=== PATIENT | female | born 1940 | race Caucasian/White ===

== ENCOUNTER → 2016-10-20 | Outpatient (CLI) | payer BC ==
[~2016-10-20] MED LIST: ASPEC81 PO; COEN60CA2 PO; FENO145T26 PO; PANT1TAB48 PO; PARO20TA4 PO; PENC1CRE33 TOP; TOLT1CAP3 PO
[2016-10-20 12:14] LABS: HEMATOCRIT 44.3 % (37-47); MEAN CELL VOLUME 93.3 fL (80-100); MEAN CORPUSCULAR HEMOGLOBIN 30.7 pg (25-34); MEAN PLATELET VOLUME 11.1 fL (7.4-10.4); PLATELET COUNT 245 K/uL (130-400); RED BLOOD COUNT 4.75 M/uL (4.2-5.4); WHITE BLOOD COUNT 5.22 K/uL (4.8-10.8)
[2016-10-20 12:36] LABS: ALT/SGPT 23 U/L (12-78); BLOOD UREA NITROGEN 17 mg/dl (7-18); BUN/CREATININE RATIO 19.3 (10-20); CARBON DIOXIDE 30 mmol/L (21-32); CHLORIDE 106 mmol/L (98-107); CHOLESTEROL 179 mg/dl (0-200); CREATININE 0.89 mg/dl (0.60-1.20); GLUCOSE 88 mg/dl (70-99); POTASSIUM 4.2 mmol/L (3.5-5.1); SODIUM 143 mmol/L (136-145); TRIGLYCERIDES 51 mg/dl (0-150); VERY LOW DENSITY LIPOPROT CALC 10 mg/dl
[2016-10-20 12:37] LABS: CALCIUM 8.9 mg/dl (8.5-10.1)
[2016-10-20 12:39] LABS: ALB/GLOB RATIO 1.3 (0.9-2); ALKALINE PHOSPHATASE 51 U/L (45-117); AST/SGOT 19 U/L (15-37); CHOLESTEROL/HDL RATIO 2.5; HDL CHOLESTEROL 73 mg/dl; LDL CHOLESTEROL CALCULATED 96 mg/dl
== END | disposition home or self-care (01) ==
LOC: C.LABBFT 09:14
PROVIDERS: ATTEND Internal Medicine
DX: E78.00 Pure hypercholesterolemia, unspecified (principal)

== ENCOUNTER → 2017-05-23 | Outpatient (CLI) | payer BC ==
[~2017-05-23] MED LIST changes: +PANT1TAB3 PO; -PANT1TAB48 PO
[2017-05-23 12:29] LABS: HEMATOCRIT 43.5 % (37-47); HEMOGLOBIN 14.6 g/dL (12.0-16.0); MEAN CELL VOLUME 93.1 fL (80-100); MEAN CORPUSCULAR HEMOGLOBIN 31.3 pg (25-34); MEAN CORPUSCULAR HGB CONC 33.6 g/dl (32-36); MEAN PLATELET VOLUME 11.4 fL (7.4-10.4); PLATELET COUNT 246 K/uL (130-400); RED CELL DISTRIBUTION WIDTH SD 43.8 fL (36.4-46.3)
[2017-05-23 13:12] LABS: ALBUMIN 3.9 gm/dl (3.4-5.0); ALT/SGPT 25 U/L (12-78); AST/SGOT 17 U/L (15-37); BLOOD UREA NITROGEN 22 mg/dl (7-18); CALCIUM 8.9 mg/dl (8.5-10.1); CARBON DIOXIDE 28 mmol/L (21-32); CHOLESTEROL 175 mg/dl (0-200); CREATININE 0.84 mg/dl (0.60-1.20); GLUCOSE 79 mg/dl (70-99); POTASSIUM 4.2 mmol/L (3.5-5.1); SODIUM 140 mmol/L (136-145)
[2017-05-23 13:23] LABS: ALKALINE PHOSPHATASE 45 U/L (45-117); LDL CHOLESTEROL CALCULATED 95 mg/dl
== END | disposition home or self-care (01) ==
LOC: C.LABBFT 10:50
PROVIDERS: ATTEND Internal Medicine
DX: E78.00 Pure hypercholesterolemia, unspecified (principal)

== ENCOUNTER 2023-05-29 18:55 | Inpatient (IN) ==
--- NOTE | 2023-05-29 19:31 | XRay Report ---
SINGLE VIEW CHEST CLINICAL HISTORY: Flulike symptoms FINDINGS: 2 AP, portable, upright chest radiographs are compared to study dated 01/29/2023. The examin ation is degraded by portable technique and patient rotation. The heart is mildly enlarged noting at herosclerotic calcification of the thoracic aorta. The pulmonary vasculature is noncongested. Chronic interstitial thickening is similar to previous. There is mild left basilar atelectasis. The lungs an d pleural spaces are otherwise clear. No pneumothorax is seen. The skeletal structures are osteopenic . The bony thorax is grossly intact. IMPRESSION: No active disease in the chest. ACT 112: Negative or not required by law. Electronically signed by: Zhen Wyatt M.D. 05/29/2023 7:29 PM
[2023-05-29 20:32] LABS: Basophils # (auto) 0.03 K/uL (0.00-0.20); Basophils % (auto) 0.3 %; Eosinophils # (auto) 0.02 K/uL (0.00-0.50); Eosinophils % (auto) 0.2 %; Hematocrit (blood only) 42.3 % (37.0-47.0); Hemoglobin 13.9 g/dl (12.0-16.0); Immature Granulocytes # (auto) 0.04 K/uL (0.01-0.20); Immature Granulocytes % (auto) 0.5 %; Lymphocytes # (auto) 0.81 K/uL (1.20-3.40); Lymphocytes % (auto) 9.3 %; Mean Corpuscular Hemoglobin 30.1 pg (25.0-34.0); Mean Corpuscular Hgb Conc 32.9 g/dL (32.0-36.0); Mean Corpuscular Volume 91.6 fL (80.0-100.0); Mean Platelet Volume 10.8 fL (9.4-12.4); Monocytes # (auto) 0.76 K/uL (0.11-0.59); Monocytes % (auto) 8.7 %; Neutrophils # (auto) 7.06 K/uL (1.40-6.50); Platelet Count 235 K/uL (130-400); RDW Coefficient of Variation 13.2 % (11.5-14.5); RDW Standard Deviation 44.2 fL (36.4-46.3); Red Blood Count 4.62 M/uL (4.20-5.40); White Blood Count 8.72 K/ul (4.8-10.8)
[2023-05-29 20:50] LABS: Alanine Aminotransferase 7 U/L (7-52); Albumin Globulin Ratio 1.5 (0.9-2); Albumin Level 4.2 gm/dl (3.4-5.0); Alkaline Phosphatase 45 U/L (34-104); Anion Gap 7 (3-11); Aspartate Aminotransferase 33 U/L (13-39); BUN Creatinine Ratio 28.2 (10-20); Bilirubin,Total 0.5 mg/dl (0.2-1.0); Blood Urea Nitrogen 22 mg/dl (6-23); Calcium 9.5 mg/dl (8.6-10.3); Carbon Dioxide 26 mmol/L (21-32); Chloride 104 mmol/L (98-107); Est GFR (African American) 83.2 ml/min; Est GFR (Non-African American) 71.8 ml/min; Globulin 2.8 gm/dl (2.5-4.0); Glucose 194 mg/dl (70-99(Fasting)); Potassium 3.6 mmol/L (3.5-5.1); Sodium 137 mmol/L (136-145)
[2023-05-29 21:18] LABS: Adenovirus PCR Not Detected (NotDetected); Bordetella parapertussis PCR Not Detected (NotDetected); Bordetella pertussis PCR Not Detected (NotDetected); Chlamydia pneumoniae PCR Not Detected (NotDetected); Coronavirus 229E PCR Not Detected (NotDetected); Coronavirus HKU1 PCR Not Detected (NotDetected); Coronavirus NL63 PCR Not Detected (NotDetected); Coronavirus OC43PCR Not Detected (NotDetected); Human Metapneumovirus PCR Not Detected (NotDetected); Influenza A PCR Not Detected (NotDetected); Influenza B PCR Not Detected (NotDetected); Mycoplasma pneumoniae PCR Not Detected (NotDetected); Parainfluenza Virus 1 PCR Not Detected (NotDetected); Parainfluenza Virus 2 PCR Not Detected (NotDetected); Parainfluenza Virus 3 PCR Not Detected (NotDetected); Parainfluenza Virus 4 PCR Not Detected (NotDetected); Respiratory Syncytial VirusPCR Not Detected (NotDetected); Rhinovirus/Enterovirus PCR Not Detected (NotDetected)
[2023-05-29 21:26] LABS: Coronavirus CoV-2 (COVID19)PCR DETECTED (NotDetected)
[2023-05-29] MEDS ORDERED: ACETAMINOPHEN 1,000 MG/100 ML VIAL IV STA (21:52)
[2023-05-29] MEDS ORDERED: SODIUM CHLORIDE 0.9% 1,000 ML IV ONE (21:52)
--- NOTE | 2023-05-29 22:10 | Emergency Department Note ---
Impression & Plan Weakness, Fall, Flu-like symptoms, COVID-19 ED Provider Note NAME: VASU TORO AGE: 82 SEX: F : 1940 ARRIVES VIA: Walk-In INFORMANT: [Patient][daughter] ED PROVIDER(S): [Zhen Laura MD] CHIEF COMPLAINT: Flulike symptoms, weak HISTORY OF PRESENT ILLNESS: The patient is an 82-year-old female who resides at an assisted living center. She has felt poorly for about 1 weeks timeframe. She had a sore throat, fever, cough and some nausea. No vomiting. She has been quite weak. She cannot walk as per the daughter and has fallen a few times although, she has not suffered any injuries. Patient has a poor appetite, she feels she may be dehydrated. The patient's daughter was concerned for UTI, the patient has not yet been able to provide a urine sample. PMHx/PSHx/Social Hx: See Below PHYSICAL EXAM: GENERAL: Patient is in no acute distress. HEENT: No acute trauma, normocephalic atraumatic, mucous membranes moist, no nasal congestion. NECK: No stridor, no adenopathy, no meningismus, trachea is midline. LUNGS: Clear to auscultation bilaterally, no wheeze, no rhonchi, breath sounds equal. HEART: Without murmurs gallops or rubs, regular rate and rhythm. ABDOMEN: Soft, nontender, no peritonitis. EXTREMITIES: No cyanosis, full range of motion of all the joints without pain or difficulty. NEUROLOGIC: Oriented x 3, no acute motor or sensory deficits, no focal weakness. SKIN: No jaundice, no diaphoresis. DIFFERENTIAL DIAGNOSIS: Viral illness, COVID-19, influenza, pneumonia, UTI, electrolyte imbalance, anemia, dehydration, among others. EMERGENCY DEPARTMENT PROCEDURES: MEDICAL DECISION MAKING: There is no leukocytosis or concerning anemia. There is a normal platelet count. No renal failure or significant electrolyte abnormality. No concerning liver enzyme elevation. Respiratory bio fire was positive for COVID-19. Chest film does not show pneumonia, CHF or pneumothorax. Strep testing returned negative. On exam, the patient was not hypoxic. Her lungs were clear. An ECG was done, there was a normal sinus rhythm, no obvious ST elevation. The patient was given IV Tylenol. She was given IV saline, 1 L. Patient has COVID-19. She is weak, she cannot walk, she is falling. She is not safe for discharge. I do think COVID-19 has caused her symptoms, weakness is quite common in the elderly with the COVID-19 diagnosis. I spoke with the patient and case management, the on-call hospitalist was consulted. Prior/Outside records/notes reviewed: Primary care note from 04/21/2023 discussing her ongoing medical issues including Parkinson's and CVA. ECG per my interpretation: Indication was weakness. The ECG shows a normal sinus rhythm with a rate of 88. There is significant baseline artifact. There is no ST elevation, no PVCs but there is some subtle ST depression seen in the lateral leads. QTc is 435. Continuous Cardiac Monitoring per my interpretation: An order was placed for continuous cardiac monitoring. The monitor shows a rate of 89 with normal sinus rhythm. Imaging/x-ray results per my interpretation: Chest x-ray does not show mediastinal widening, pneumonia or pneumothorax. Chronic Medical/Social conditions affecting care: Advanced age. Care/Management discussed with: Case management, the on-call hospitalist. Level of care consideration(s): After review of the information above and other included data: --I believe the patient requires escalation of care to admission DISPOSITION: Admission Past Med/Surg History Medical History Anxiety H/O esophageal reflux Hyperactivity of bladder Lice infested hair Menopause Sciatica of left side Seborrheic dermatitis Tracheoesophageal fistula, esophageal atresia and stenosis, congenital Depression Surgical History History of esophagogastroduodenoscopy (EGD) Family History Mother Myocardial infarction Father Myocardial infarction Sister Myocardial infarction Brother No problems noted. Son Prostate cancer Other Cancer Coronary heart disease Denies family history of Ovarian cancer Breast cancer Colorectal cancer Social History Smoking Status: Former smoker Tobacco Type: Cigarettes Age Started Using Tobacco: 22; Age Quit Using Tobacco: 42; packs per day: 1; Cigarettes Per Day: 20; Second Hand Exposure: No; Do You Dip or Chew Tobacco: No; Hx Alcohol Use: No Hx Substance Use: No Preferred Language: Spanish Communication Ability: Effective Visual Impairment: No Limitations Hearing Ability: Normal Employment Law Specialist Required: No Beliefs That Will Affect Care: None marital status: / Current Living Situation: Personal Care Facility Current Living Situation Comment: lives in independent living at [facility] current occupational status: retired current occupation: retired from career as administrative underwriter with [employer] Feels Safe at Home: Yes Safety Concerns: Feels Safe At This Time Childhood Exposure to Second-Hand Smoke: Yes Diet: regular Dental Care, Regularly: Yes Physical Activity Frequency: 3-4 Times per Week Physical Activity Frequency Comment: walking short distances Seatbelt Use: always Sunscreen Use: No Assistive Devices: Glasses and Walker Allergies Allergies Allergy/AdvReac Type Severity Reaction Status Date / Time sertraline Allergy Intermediate itchy Verified 05/29/23 23:02 Sulfa (Sulfonamide Allergy Unknown RASH Verified 05/29/23 23:02 Antibiotics) Atorvastatin Calcium TABS Allergy Unknown Unknown Uncoded 05/29/23 23:02 Simvastatin TABS Allergy Unknown Uncoded 05/29/23 23:02 Home Meds Home Medications Medication Instructions Recorded Confirmed aspirin 81 mg tablet,delayed 81 mg PO DAILY 01/17/19 04/21/23 release multivitamin 1 tab PO QAM 05/29/23 05/29/23 pantoprazole 40 mg tablet,delayed 40 mg PO QAM 05/29/23 05/29/23 release Previous Rx's Medication Instructions Recorded primidone 50 mg tablet 50 mg PO BID #180 tabs 09/30/22 rosuvastatin 20 mg tablet 20 mg PO DAILY #90 tabs 09/30/22 carbidopa 25 mg-levodopa 100 mg 1.5 tab PO TID 90 days #405 tabs 12/16/22 tablet (Sinemet) acetaminophen 325 mg capsule 650 mg (2 x 325 mg) PO TID PRN 02/21/23 fever or cold symptoms #90 caps benzonatate 100 mg capsule 100 mg PO TID PRN cough #90 caps 02/21/23 guaifenesin 600 mg tablet, 600 mg PO Q12H PRN congestion #60 02/21/23 extended release 12 hr (Mucinex) tabs fenofibrate nanocrystallized 145 145 mg PO DAILY #90 tabs 03/15/23 mg tablet paroxetine HCl 30 mg tablet 30 mg PO DAILY #90 tabs 03/15/23 Women's Multivitamin (Gummy) 1 gummy PO 1XD #120 pieces 03/20/23 cough drops See Rx Instructions .Route 04/12/23 .COMPLEX #90 tabs ibuprofen 200 mg tablet 200 mg PO HS pain #90 tabs 04/21/23 amoxicillin 875 mg-potassium 1 tab PO BID 7 days #14 tabs 05/13/23 clavulanate 125 mg tablet Results & Data (ED) Vital Signs Vital Signs - 24 hr 05/29/23 18:59 05/29/23 22:03 05/29/23 22:11 Temperature 37.2 C 36.9 C Temperature Source Temporal Artery Scan Oral Pulse Rate 89 86 Pulse Rate [Apical] 78 Pulse Rhythm [Apical] Regular Pulse Strength [Apical] Normal Respiratory Rate 20 14 Respiratory Effort / Characteristics Non-Labored Spontaneous Non-Labored Respiratory Depth Normal Normal Respiratory Pattern Regular Blood Pressure 154/79 H Blood Pressure [Right Arm] 153/114 H Blood Pressure Mean 104 Blood Pressure Mean [Right Arm] 127 Blood Pressure Position Sitting Blood Pressure Position [Right Arm] Lying Pulse Oximetry 94 94 Oxygen Delivery Method Room Air Room Air Sepsis Recent Fever Within 48 Hours No Sepsis New/Unexplained Change in Mental Status N/A Sepsis Action Taken by Nursing No Action Required 05/29/23 22:11 Temperature Temperature Source Pulse Rate Pulse Rate [Apical] Pulse Rhythm [Apical] Pulse Strength [Apical] Respiratory Rate Respiratory Effort / Characteristics Non-Labored Respiratory Depth Normal Respiratory Pattern Regular Blood Pressure Blood Pressure [Right Arm] Blood Pressure Mean Blood Pressure Mean [Right Arm] Blood Pressure Position Blood Pressure Position [Right Arm] Pulse Oximetry Oxygen Delivery Method Room Air Sepsis Recent Fever Within 48 Hours Sepsis New/Unexplained Change in Mental Status Sepsis Action Taken by Assisted Medications Current Medication List: was personally reviewed by me Laboratory Data Attestation: I reviewed the patient's lab results. 05/29/23 19:50 05/29/23 19:50 Lab Results 05/29/23 Range/Units 19:50 WBC 8.72 (4.8-10.8) K/ul RBC 4.62 (4.20-5.40) M/uL Hgb 13.9 (12.0-16.0) g/dl Hct 42.3 (37.0-47.0) % MCV 91.6 (80.0-100.0) fL MCH 30.1 (25.0-34.0) pg MCHC 32.9 (32.0-36.0) g/dL RDW Std Deviation 44.2 (36.4-46.3) fL RDW Coeff of Anahi 13.2 (11.5-14.5) % Plt Count 235 (130-400) K/uL MPV 10.8 (9.4-12.4) fL Immature Gran % (Auto) 0.5 % Neut % (Auto) 81.0 % Lymph % (Auto) 9.3 % Bulloch % (Auto) 8.7 % Eos % (Auto) 0.2 % Baso % (Auto) 0.3 % Neut # (Auto) 7.06 H (1.40-6.50) K/uL Lymph # (Auto) 0.81 L (1.20-3.40) K/uL Bulloch # (Auto) 0.76 H (0.11-0.59) K/uL Eos # (Auto) 0.02 (0.00-0.50) K/uL Baso # (Auto) 0.03 (0.00-0.20) K/uL Immature Gran # (Auto) 0.04 (0.01-0.20) K/uL Sodium 137 (136-145) mmol/L Potassium 3.6 (3.5-5.1) mmol/L Chloride 104 (98-107) mmol/L Carbon Dioxide 26 (21-32) mmol/L Anion Gap 7 (3-11) BUN 22 (6-23) mg/dl Creatinine 0.78 (0.6-1.2) mg/dl Est Cr Clr Drug Dosing Not Reportable Est GFR ( Amer) 83.2 ml/min Est GFR (Non-Af Amer) 71.8 ml/min BUN/Creatinine Ratio 28.2 H (10-20) Glucose 194 H (70-99(Fasting)) mg/dl Calcium 9.5 (8.6-10.3) mg/dl Phosphorus 2.3 L (2.5-4.9) mg/dl Magnesium 1.7 (1.7-2.4) mg/dl Total Bilirubin 0.5 (0.2-1.0) mg/dl AST 33 (13-39) U/L ALT 7 (7-52) U/L Alkaline Phosphatase 45 (34-104) U/L Total Protein 7.0 (6.0-8.3) gm/dl Albumin 4.2 (3.4-5.0) gm/dl Globulin 2.8 (2.5-4.0) gm/dl Albumin/Globulin Ratio 1.5 (0.9-2) Adenovirus (PCR) Not Detected (NotDetected) B. pertussis DNA (PCR) Not Detected (NotDetected) B.parapertussis DNA PCR Not Detected (NotDetected) C. pneumoniae DNA (PCR) Not Detected (NotDetected) Coronavirus OC43 (PCR) Not Detected (NotDetected) Coronavirus HKU1 (PCR) Not Detected (NotDetected) Coronavirus 229E (PCR) Not Detected (NotDetected) SARS-CoV-2 (PCR) DETECTED A* (NotDetected) Coronavirus NL63 (PCR) Not Detected (NotDetected) Human Metapneumovir PCR Not Detected (NotDetected) Influenza Type A (PCR) Not Detected (NotDetected) Influenza Type B (PCR) Not Detected (NotDetected) M. pneumoniae (PCR) Not Detected (NotDetected) Parainfluenza 1 (PCR) Not Detected (NotDetected) Parainfluenza 2 (PCR) Not Detected (NotDetected) Parainfluenza 3 (PCR) Not Detected (NotDetected) Parainfluenza 4 (PCR) Not Detected (NotDetected) RSV (PCR) Not Detected (NotDetected) Entero/Rhino (PCR) Not Detected (NotDetected) Group A Strep (PCR) NOT DETECTED (NotDetected) Administered Medications Discontinued Medications Acetaminophen (Ofirmev) 1,000 mg in 100 mls @ 400 mls/hr IV NOW STA Stop: 05/29/23 22:06 Last Admin: 05/29/23 22:55 Dose: 400 mls/hr Documented By: MICHELLE Sodium Chloride (Nss) 1,000 mls @ 999 mls/hr IV .Q1H1M ONE Stop: 05/29/23 22:52 Last Admin: 05/29/23 22:55 Dose: 999 mls/hr Documented By: AAW Imaging Data Radiologist's Impression: Chest X-Ray 05/29/23 19:03 SINGLE VIEW CHEST CLINICAL HISTORY: Flulike symptoms FINDINGS: 2 AP, portable, upright chest radiographs are compared to study dated 01/29/2023. The examination is degraded by portable technique and patient rotation. The heart is mildly enlarged noting atherosclerotic calcification of the thoracic aorta. The pulmonary vasculature is noncongested. Chronic interstitial thickening is similar to previous. There is mild left basilar atelectasis. The lungs and pleural spaces are otherwise clear. No pneumothorax is seen. The skeletal structures are osteopenic. The bony thorax is grossly intact. IMPRESSION: No active disease in the chest. ACT 112: Negative or not required by law. Electronically signed by: Zhen Wyatt M.D. 05/29/2023 7:29 PM Discharge Plan Visit Data Chief Complaint: Flu Like Symptoms Stated Complaint: POSS SEPSIS RSV ED Provider: Zhen Laura Discharge Problem: Weakness, Fall, Flu-like symptoms, COVID-19 Patient Disposition: Admitted As Inpatient Condition: Fair Forms Stand Alone Forms: [facility] Petronila Repligen Prescriptions Prescriptions: No Action benzonatate 100 mg capsule 100 mg PO TID PRN (Reason: cough) Qty: 90 3RF acetaminophen 325 mg capsule 650 mg PO TID PRN (Reason: fever or cold symptoms) Qty: 90 0RF guaifenesin [Mucinex] 600 mg tablet extended release 12hr 600 mg PO Q12H PRN (Reason: congestion) Qty: 60 0RF fenofibrate nanocrystallized 145 mg tablet 145 mg PO DAILY Qty: 90 3RF paroxetine HCl 30 mg tablet 30 mg PO DAILY Qty: 90 3RF Women's Multivitamin (Gummy) 1 gummy PO 1XD Qty: 120 0RF Rx Instructions: OTC Supplied by patient family cough drops See Rx Instructions .ROUTE .COMPLEX Qty: 90 0RF Rx Instructions: She is allowed to have OTC cough drops to use by mouth at bedside to use as needed for cough ibuprofen 200 mg tablet 200 mg PO HS Qty: 90 3RF primidone 50 mg tablet 50 mg PO BID Qty: 180 3RF rosuvastatin 20 mg tablet 20 mg PO DAILY Qty: 90 3RF carbidopa-levodopa [Sinemet] 25-100 mg tablet 1.5 tab PO TID 90 Days Qty: 405 3RF Rx Instructions: give at 8AM, NOON, and 5 PM please amoxicillin-pot clavulanate 875-125 mg tablet 1 tab PO BID 7 Days Qty: 14 0RF aspirin 81 mg tablet,delayed release (DR/EC) 81 mg PO DAILY pantoprazole 40 mg tablet,delayed release (DR/EC) 40 mg PO QAM multivitamin [Multiple Vitamin] Tablet 1 tab PO QAM Rx Instructions: LUIS DUNCAN Referrals Referrals: Jose Mcmanus DO [Primary Care Provider] - Discharge Problem: Fall Qualifiers: Encounter type: initial encounter Qualified Code(s): W19.XXXA - Unspecified fall, initial encounter
[2023-05-29 23:07] LABS: Magnesium 1.7 mg/dl (1.7-2.4); Phosphorus 2.3 mg/dl (2.5-4.9)
--- NOTE | 2023-05-29 23:54 | History & Physical Report ---
Date of Service May 29, 2023 Assessment & Plan (1) Complicated urinary tract infection: Plan: 82 F with PMH Parkinson's disease, anxiety/depression, esophageal reflux, hypercholesterolemia, and recent UTI managed in the outpatient setting, who presented to the ER with generalized malaise, progressive weakness x 1 week. Currently stable, admitted to the hospital for continued management of UTI refractory to initial antibiotic treatment. Complicated UTI -Recently finished Augmentin 875 mg twice daily x 7 days started 05/13/2023. -UA today: 4+ bacteriuria, positive for leukocyte esterase and nitrites. Patient symptomatic (malodorous urine, urinary frequency) but afebrile, with normal white count. -Will manage as complicated UTI * Admitted to [facility] telemetry * Started IV ceftriaxone 2 g daily x 10 days total course * Trend clinical improvement COVID-19 -Patient is positive but, in the setting of refractory UTI, lack of respiratory distress requiring respiratory support, does not appear to be culprit driving patient's presentation. * Deferring antiviral treatment for now * Isolation precautions (COVID-19) ordered Weakness -Patient has some weakness at baseline due to Parkinson's disease. However, current worsening has been acute and below baseline, per daughter. -Likely acute deconditioning as a result of poor oral intake due to generalized malaise. * UTI treatment as above * Trend clinical improvement, also as above * PT/OT ordered for evaluation appreciate d/c recs Parkinson's disease * Continue home carbidopa/levodopa 25/100 mg, primidone 50 mg Anxiety/Depression * Continue home paroxetine 30 mg Esophageal reflux * Continue home Protonix 40 mg daily Hypercholesterolemia * Continue home rosuvastatin 20 mg Code: Full code Dispo: Med-Surg telemetry FEN/GI: Heart healthy DVT Prophylaxis: Lovenox 40 mg q24h PT/OT: Yes Consults: None Case Management: No (2) COVID-19: (3) Weakness: (4) Parkinsons disease: (5) Depression: (6) Anxiety: (7) Esophageal reflux: (8) Hypercholesteremia: History of Present Illness Primary Care Provider: Jose Mcmanus DO Nai is an 82-year-old woman with a past medical history of Parkinson's disease, anxiety/depression, esophageal reflux, and bladder hyperactivity, who presented to the emergency room from an assisted living center after progressive weakness and generalized malaise x 1 week. Specifically, she reports sore throat, fever, productive cough, nasal/chest congestion, and nausea. Per daughter, who is present at bedside, patient's symptoms started around of last week with weakness. By Monday, aforementioned URI symptoms were also present and she was subsequently tested for COVID-19, which was negative. Patient was recently diagnosed outpatient with UTI (05/13/2023) and was prescribed Augmentin 875 mg twice daily x 7 days. Today, patient notes she continues to have some of her presenting UTI symptoms (malodorous urine, urinary frequency) after completing antibiotics course. In the emergency room patient was afebrile rest of vitals were stable/wnl. Notable labs include: Phosphorus-2.3, and respiratory viral panel positive for COVID-19. WBC was normal, and BMP showed no significant metabolic derangements. CXR was also negative for acute inflammation/infection. She received a dose of IV Tylenol 1000 mg and a 1 L bolus of NS. Hospitalist service was then consulted for admission. On admission, patient fatigue and weakness. She had yet to provide urine sample for urinalysis (UA subsequently revealed 1+ hematuria, positive nitrites, positive leukocyte esterase, and 4+ bacteriuria) but denies suprapubic abdominal pain or flank pain. Allergies Allergy/AdvReac Type Severity Reaction Status Date / Time sertraline Allergy Intermediate itchy Verified 05/29/23 23:02 atorvastatin Allergy Unknown Unknown Verified 05/30/23 00:34 simvastatin Allergy Unknown Unknown Verified 05/30/23 00:34 Sulfa (Sulfonamide Allergy Unknown RASH Verified 05/29/23 23:02 Antibiotics) Home Medications Medication Instructions Recorded Confirmed Type aspirin 81 mg tablet,delayed 81 mg PO DAILY 01/17/19 05/29/23 History release primidone 50 mg tablet 50 mg PO BID #180 tabs 09/30/22 05/29/23 Rx carbidopa 25 mg-levodopa 100 mg 1.5 tab PO TID 90 days #405 tabs 12/16/22 05/29/23 Rx tablet (Sinemet) cough drops See Rx Instructions .Route 04/12/23 05/29/23 Rx .COMPLEX #90 tabs acetaminophen 325 mg capsule 325 - 650 mg PO Q4H PRN fever or 05/29/23 05/29/23 History cold symptoms calcium carbonate 500 mg calcium 500 mg PO QID PRN Gi Upset 05/29/23 05/29/23 History (1,250 mg) chewable tablet fenofibrate nanocrystallized 145 145 mg PO QPM 05/29/23 05/29/23 History mg tablet guaifenesin 200 mg tablet 200 - 400 mg PO Q4H PRN Congestion 05/29/23 05/29/23 History ibuprofen 200 mg capsule (Motrin 400 mg PO .Q4-6H PRN Pain 05/29/23 05/29/23 History IB) ibuprofen 200 mg tablet 400 mg PO .Q4-6H PRN pain 05/29/23 05/29/23 History multivitamin 1 tab PO QAM 05/29/23 05/29/23 History pantoprazole 40 mg tablet,delayed 40 mg PO QAM 05/29/23 05/29/23 History release paroxetine HCl 30 mg tablet 30 mg PO QPM 05/29/23 05/29/23 History rosuvastatin 20 mg tablet 20 mg PO QPM 05/29/23 05/29/23 History Past Med/Surg History Medical History Anxiety H/O esophageal reflux Hyperactivity of bladder Lice infested hair Menopause Sciatica of left side Seborrheic dermatitis Tracheoesophageal fistula, esophageal atresia and stenosis, congenital Depression Surgical History History of esophagogastroduodenoscopy (EGD) Family History Mother Myocardial infarction Father Myocardial infarction Sister Myocardial infarction Brother No problems noted. Son Prostate cancer Other Cancer Coronary heart disease Denies family history of Ovarian cancer Breast cancer Colorectal cancer Social History Smoking Status: Former smoker Tobacco Type: Cigarettes Age Started Using Tobacco: 22; Age Quit Using Tobacco: 42; packs per day: 1; Cigarettes Per Day: 20; Second Hand Exposure: No; Do You Dip or Chew Tobacco: No; Hx Alcohol Use: No Hx Substance Use: No Preferred Language: Thai Communication Ability: Effective Visual Impairment: No Limitations Hearing Ability: Normal [place] Man Required: No Beliefs That Will Affect Care: None marital status: / Current Living Situation: Personal Care Facility Current Living Situation Comment: lives in independent living at the [facility] current occupational status: retired current occupation: retired from career as administrative assistant front desk with [employer] Feels Safe at Home: Yes Safety Concerns: Feels Safe At This Time Childhood Exposure to Second-Hand Smoke: Yes Diet: regular Dental Care, Regularly: Yes Physical Activity Frequency: 3-4 Times per Week Physical Activity Frequency Comment: walking short distances Seatbelt Use: always Sunscreen Use: No Assistive Devices: Walker and Wheelchair Review of Systems Review of Systems: All systems reviewed & are unremarkable except as noted in HPI & below Physical Exam Physical Exam: General: Tired-appearing elderly woman in no acute distress HEENT: PERRLA. Normal conjunctiva, anicteric sclera. Oropharynx normal. Respiratory: Moderate respiratory effort. Slight bibasilar crackles, otherwise CTA. Cardiovascular: RRR without murmurs, gallops, or rubs. No pedal edema. GI: Soft abdomen with normal bowel sounds heard on auscultation. Nontender x4 quadrants Neuro: Alert and oriented x3. Results & Data Results & Data Vital Signs (Past 12 Hours) Vital Signs Temp Pulse Pulse Resp BP BP Pulse Ox 05/29/23 23:00 85 22 05/29/23 23:00 153/91 H 05/29/23 22:11 05/29/23 22:11 36.9 C 78 14 153/114 H 94 05/29/23 22:03 85 26 H 05/29/23 22:03 86 05/29/23 18:59 37.2 C 89 20 154/79 H 94 O2 Del Method 05/29/23 23:00 05/29/23 23:00 05/29/23 22:11 Room Air 05/29/23 22:11 Room Air 05/29/23 22:03 05/29/23 22:03 05/29/23 18:59 Room Air Supervising Physician Co-Signing Physician Notes Attending addendum: I have physically seen this patient, have supervised the medical residents activities, and agree with the H&P unless as otherwise noted. Assessment and Plan: Complicated UTI- Was on Augmentin 875 twice daily from 05/13-05/20/23 UA looks positive again Follow urine culture sensitivity Ceftriaxone 2 g IV daily IV fluids as noted COVID-19 infection- Chest x-ray without pneumonia however, patient is hypoxic with pulse ox down to 89% on room air Remdesivir IV per protocol Guaifenesin extended release 1200 mg p.o. twice daily DuoNebs every 2 hours as needed Parkinson's/cognitive impairment- Continue usual medications Resident Activity Tracking Resident Involvement: Resident Care Provided Care Provided: Adult [facility]
[2023-05-30] MEDS ORDERED: CALCIUM CARBONATE 500 MG CHEWABLE TAB PO PRN (00:35)
[2023-05-30 01:41] LABS: Appearance Urine Cloudy (Clear); Bacteria Urine Automated 4+ (Negative); Bilirubin Urine Negative (Negative); Blood Urine 1+ (Negative); Color Urine Yellow; Epithelial Cell Urine Auto >30 /lpf (0-5); Glucose Urine UA Negative (Negative); Ketones Urine Negative (Negative); Leukocyte Esterase Urine 1+ (Negative); Nitrite Urine Positive (Negative); Protein Urine Negative (Negative); RBC Urine Automated 0-4 /hpf (0-4); Specific Gravity Urine 1.016 (1.000-1.030); Urobilinogen Urine Negative (Negative); pH Urine 5.5 (4.5-7.5)
[2023-05-30] MEDS: guaiFENesin/DEXTROM SYRUP 200MG/20MG 10ML UDC PO PRN ×2 (02:28→12:43)
[2023-05-30 05:01] LABS: Hematocrit (blood only) 38.9 % (37.0-47.0); Mean Corpuscular Hgb Conc 33.4 g/dL (32.0-36.0); Mean Corpuscular Volume 92.6 fL (80.0-100.0); Mean Platelet Volume 10.5 fL (9.4-12.4); Platelet Count 190 K/uL (130-400); RDW Coefficient of Variation 13.2 % (11.5-14.5); RDW Standard Deviation 44.4 fL (36.4-46.3); White Blood Count 7.19 K/ul (4.8-10.8)
[2023-05-30 05:18] LABS: BUN Creatinine Ratio 21.6 (10-20); Calcium 8.8 mg/dl (8.6-10.3); Creatinine Clr Calc Pharmacy 51.1 ml/min; Est GFR (African American) 88.7 ml/min; Est GFR (Non-African American) 76.5 ml/min; Potassium 3.5 mmol/L (3.5-5.1)
[2023-05-30] MEDS: cefTRIAXone SODIUM 2,000 MG in DEXTROSE 5 % MINI-B 50 ML IV SCH (06:35)
--- NOTE | 2023-05-30 08:20 | Electrocardiogram Report ---
Test Reason : Blood Pressure : / mmHG Vent. Rate : 088 BPM Atrial Rate : 088 BPM P-R Int : 156 ms QRS Dur : 082 ms QT Int : 360 ms P-R-T Axes : 053 005 134 degrees QTc Int : 435 ms Normal sinus rhythm ST depression in Lateral leads , consider ischemia Abnormal ECG When compared with ECG of 13-OCT-2014 10:10, ST depression in Lateral leads now present Confirmed by Emeka Wisdom ([id number]) on 05/30/2023 8:19:51 AM Referred By: REFERRED SELF Confirmed By:Emeka Wisdom
[2023-05-30 08:36] LABS: Estimated Average Glucose 111 mg/dl; Hemoglobin A1C 5.5 % (4.5-5.6)
[2023-05-30] MEDS: CARBIDOPA/LEVODOPA 25/100MG TAB PO SCH ×3 (08:53→17:34)
[2023-05-30] MEDS: ASPIRIN 81 MG ECTAB PO SCH (08:57)
[2023-05-30] MEDS: PRIMIDONE 50 MG TAB PO SCH ×2 (08:58→20:25)
[2023-05-30] MEDS: MULTIVITAMIN TAB PO SCH (08:58)
[2023-05-30] MEDS: PANTOprazole 40 MG TAB PO SCH (08:58)
[2023-05-30] MEDS: ENOXAPARIN INJ 40 MG/0.4 ML SYR SQ SCH (09:02)
--- NOTE | 2023-05-30 09:45 | CT Scan Report ---
CT SCAN OF THE ABDOMEN AND PELVIS WITHOUT IV CONTRAST CLINICAL HISTORY: Refractory urinary tract infection. COMPARISON STUDY: No priors. TECHNIQUE: CT scan of the abdomen and pelvis is performed from the lung bases to the proximal femora. Images are reviewed in the axial, sagittal, and coronal planes. IV contrast was not administered for this examination. Note the examination was performed in suboptimal fashion without oral and IV contr ast. There is also motion artifact, as well as streak artifact from the left arm which could not be e levated above the abdomen. A dose lowering technique was utilized adhering to the principles of ALARA . CT DOSE: 893.38 mGy.cm FINDINGS: Lung bases: The heart is mildly enlarged and without pericardial effusion. The lung bases are clear. There is a small hiatal hernia. Liver: The unenhanced liver is normal in size, contour, and attenuation. There is no intrahepatic maye iary ductal dilatation. Scattered hepatic cysts measure up to 16 mm. Gallbladder: Unremarkable. Spleen: Normal in size and attenuation. Pancreas: Unremarkable. Adrenal glands: Unremarkable. Kidneys: The unenhanced kidneys are normal in size and without hydronephrosis. There are no renal zuleima culi identified. There is no evidence of contour deforming renal mass lesion. Abdominal vasculature: The abdominal aorta is normal in course and caliber noting advanced atheroscle rotic calcification. Bowel: There is rectosigmoid fecal impaction and [id number] constipation. There is mild perirec sonja inflammation. No bowel obstruction is seen. The appendix is not identified and reported surgical ly absent. Peritoneum: There is no intraperitoneal free air or abdominal ascites. There is a fat-containing umbi lical hernia. Lymphadenopathy: None. Pelvic viscera: The bladder is normal as visualized. There are calcified uterine fibroids. No adnexal lesion is seen. There are bilateral fat-containing groin hernias. Skeletal structures: The skeletal structures are osteopenic. There is mild lumbosacral spondylosis. N o lytic or blastic lesions are seen. IMPRESSION: 1. Suboptimal examination without oral and IV contrast. There is also significant streak and motion a rtifact. 2. There is rectosigmoid fecal impaction and mild/moderate constipation. 3. There is mild perirectal infiltration suggesting stercoral proctitis. Correlate clinically. 4. Additional findings as above. ACT 112: Negative or not required by law. Electronically signed by: Zhen Wyatt M.D. 05/30/2023 9:42 AM
[2023-05-30] MEDS: guaiFENesin 600 MG TABCR PO SCH ×2 (13:56→20:25)
[2023-05-30] MEDS ORDERED: bisacodyL 10 MG SUPP PR PRN (16:15)
[2023-05-30] MEDS ORDERED: REMDESIVIR 200 MG in SODIUM CHLORIDE 0.9% 210 ML IV STA (16:17)
--- NOTE | 2023-05-30 16:30 | Hospitalist Progress Note ---
Date of Service May 30, 2023 Assessment & Plan (1) Complicated urinary tract infection: Plan: 82 F with PMH Parkinson's disease, anxiety/depression, esophageal reflux, hypercholesterolemia, and recent UTI managed in the outpatient setting, who presented to the ER with generalized malaise, progressive weakness x 1 week. Found to have possibly persistent UTI (SP tenderness, dysuruia, +UA) and started on ceftriaxone, found to have COVID-19 Complicated UTI -Recently finished Augmentin 875 mg twice daily x 7 days started 05/13/2023. -UA: 4+ bacteriuria, positive for leukocyte esterase and nitrites. Patient symptomatic (malodorous urine, urinary frequency, dysuria, SP tenderness) but afebrile, with normal white count. -Will manage as complicated UTI * Started IV ceftriaxone 2 g daily x 10 days total course * Ordered CT-KUB - no nephrolithiasis or urinary tract obstruction, fecal impaction/stercoral proctitis present --> ordered enema, daily miralax and senna. May explain lower abdominal pain and contributes to UTIs * await urine culture result, broaden antibiotics if worsening COVID-19 -copious upper airway secretions, poor pulmonary toilet, now on 2L oxygen and several risk factors for severe COVID * started remdesivir, LFT normal and renal function adequate - ordered daily monitoring labs * Isolation precautions (COVID-19) ordered * start dexamethasone if hypoxia progresses * ordered guaifenex, try saline nebs if pulmonary toilet continues to be a problem Weakness -Patient has some weakness at baseline due to Parkinson's disease. However, current worsening has been acute and below baseline, per daughter. -Likely acute deconditioning as a result of poor oral intake due to generalized malaise. * UTI and COVID-19 as above * Trend clinical improvement, also as above * PT/OT ordered for evaluation appreciate d/c recs Parkinson's disease * Continue home carbidopa/levodopa 25/100 mg, primidone 50 mg Anxiety/Depression * Continue home paroxetine 30 mg Esophageal reflux * Continue home Protonix 40 mg daily Hypercholesterolemia * Continue home rosuvastatin 20 mg Code: Full code Dispo: Med-Surg telemetry FEN/GI: Heart healthy DVT Prophylaxis: Lovenox 40 mg q24h PT/OT: Yes Consults: None Case Management: No (2) COVID-19: (3) Weakness: (4) Parkinsons disease: (5) Depression: (6) Anxiety: (7) Esophageal reflux: (8) Hypercholesteremia: (9) Fecal impaction: Plan: fecal impaction/stercoral proctitis present --> ordered enema, daily miralax and senna. May explain lower abdominal pain and contributes to UTIs Admission and Anticipated Discharge Date Admission Date: May 29, 2023 Subjective she has a cough and was started on 2L oxygen overnight. Denied chest pain and shortness of breath. Endorsed lower abdominal/suprapubic pain and dysuria. No vomiting or diarrhea. Physical Exam 2 Physical Exam: PHYSICAL EXAMINATION Last 24h vital signs reviewed, see documentation in flowsheet General: initially sleeping and a little slow to arouse but eventually alert HEENT: Normocephalic, atraumatic, pupils round and equal, sclerae anicteric, no conjunctival injection, moist mucus membranes Lungs: Normal respiratory effort. Very coarse ronchi bilaterally, lots of upper airway secretions, had to be repositioned but eventually had effective cough Heart: Regular rate and rhythm, no murmurs. No JVD Abdomen: Soft, nontender except mild in SP area, nondistended. Bowel sounds present. Extremities: Warm, dry, well-perfused. No extremity edema. Neuro: Alert and oriented x hospital and basic situation, vague historian but could tell me recent events and what SNF she lives in, face symmetric, moves 4 extremities well Psych: Normal affect and behavior Results & Data Results & Data Vital Signs (Past 12 Hours) Vital Signs Temp Pulse Pulse Resp BP BP Pulse Ox 05/30/23 16:00 73 20 115/63 05/30/23 15:21 37.1 C 75 22 130/63 94 05/30/23 14:00 73 27 H 96 05/30/23 14:00 136/69 05/30/23 13:00 71 25 H 05/30/23 13:00 140/62 05/30/23 12:00 75 24 93 05/30/23 12:00 139/67 05/30/23 11:26 37.2 C 77 22 138/65 93 05/30/23 11:00 77 24 05/30/23 11:00 144/68 H 05/30/23 10:00 147/85 H 01/09/24 10:00 73 21 92 05/30/23 09:00 163/71 H 05/30/23 09:00 75 23 96 05/30/23 09:00 87 L 05/30/23 08:08 37.1 C 71 20 170/73 H 92 05/30/23 08:00 71 20 91 05/30/23 08:00 168/68 H 05/30/23 07:14 70 05/30/23 07:00 144/87 H 05/30/23 07:00 71 19 05/30/23 06:25 74 22 05/30/23 06:25 164/63 H 05/30/23 06:00 78 21 05/30/23 05:00 74 17 O2 Del Method O2 Flow Rate 05/30/23 16:00 05/30/23 15:21 Nasal Cannula 2 05/30/23 14:00 Nasal Cannula 2 05/30/23 14:00 05/30/23 13:00 05/30/23 13:00 05/30/23 12:00 Nasal Cannula 2 05/30/23 12:00 05/30/23 11:26 Nasal Cannula 2 05/30/23 11:00 Nasal Cannula 2 05/30/23 11:00 05/30/23 10:00 05/30/23 10:00 05/30/23 09:00 05/30/23 09:00 05/30/23 09:00 Nasal Cannula 0 05/30/23 08:08 Room Air 05/30/23 08:00 05/30/23 08:00 05/30/23 07:14 05/30/23 07:00 05/30/23 07:00 05/30/23 06:25 05/30/23 06:25 05/30/23 06:00 05/30/23 05:00 Laboratory Results 05/30/23 04:43 05/30/23 04:43 LFTs wnl Diagnostic Findings Chest X-Ray 05/29/23 19:03 SINGLE VIEW CHEST CLINICAL HISTORY: Flulike symptoms FINDINGS: 2 AP, portable, upright chest radiographs are compared to study dated 01/29/2023. The examination is degraded by portable technique and patient rotation. The heart is mildly enlarged noting atherosclerotic calcification of the thoracic aorta. The pulmonary vasculature is noncongested. Chronic interstitial thickening is similar to previous. There is mild left basilar atelectasis. The lungs and pleural spaces are otherwise clear. No pneumothorax is seen. The skeletal structures are osteopenic. The bony thorax is grossly intact. IMPRESSION: No active disease in the chest. ACT 112: Negative or not required by law. Electronically signed by: Zhen Wyatt M.D. 05/29/2023 7:29 PM Abdomen/Pelvis CT 05/30/23 08:48 CT SCAN OF THE ABDOMEN AND PELVIS WITHOUT IV CONTRAST CLINICAL HISTORY: Refractory urinary tract infection. COMPARISON STUDY: No priors. TECHNIQUE: CT scan of the abdomen and pelvis is performed from the lung bases to the proximal femora. Images are reviewed in the axial, sagittal, and coronal planes. IV contrast was not administered for this examination. Note the examination was performed in suboptimal fashion without oral and IV contrast. There is also motion artifact, as well as streak artifact from the left arm which could not be elevated above the abdomen. A dose lowering technique was utilized adhering to the principles of ALARA. CT DOSE: 893.38 mGy.cm FINDINGS: Lung bases: The heart is mildly enlarged and without pericardial effusion. The lung bases are clear. There is a small hiatal hernia. Liver: The unenhanced liver is normal in size, contour, and attenuation. There is no intrahepatic biliary ductal dilatation. Scattered hepatic cysts measure up to 16 mm. Gallbladder: Unremarkable. Spleen: Normal in size and attenuation. Pancreas: Unremarkable. Adrenal glands: Unremarkable. Kidneys: The unenhanced kidneys are normal in size and without hydronephrosis. There are no renal calculi identified. There is no evidence of contour deforming renal mass lesion. Abdominal vasculature: The abdominal aorta is normal in course and caliber noting advanced atherosclerotic calcification. Bowel: There is rectosigmoid fecal impaction and pqse-nr-fxwafmie constipation. There is mild perirectal inflammation. No bowel obstruction is seen. The appendix is not identified and reported surgically absent. Peritoneum: There is no intraperitoneal free air or abdominal ascites. There is a fat-containing umbilical hernia. Lymphadenopathy: None. Pelvic viscera: The bladder is normal as visualized. There are calcified uterine fibroids. No adnexal lesion is seen. There are bilateral fat-containing groin hernias. Skeletal structures: The skeletal structures are osteopenic. There is mild lumbosacral spondylosis. No lytic or blastic lesions are seen. IMPRESSION: 1. Suboptimal examination without oral and IV contrast. There is also significant streak and motion artifact. 2. There is rectosigmoid fecal impaction and mild/moderate constipation. 3. There is mild perirectal infiltration suggesting stercoral proctitis. Correlate clinically. 4. Additional findings as above. ACT 112: Negative or not required by law. Electronically signed by: Zhen Wyatt M.D. 05/30/2023 9:42 AM PG Care Time/CCT Total # of Minutes Spent Total Time Spent with Patient: Total time spent is greater than 50% in coordination of care (as documented) at patient's floor/unit and/or counseling patient: Coding Level of Care Code 61836 SUB INP/OBS CARE 3/50MIN Diagnoses Complicated urinary tract infection N39.0 COVID-19 U07.1 Weakness R53.1 Parkinsons disease G20 Depression F32.9 Anxiety F41.9 Esophageal reflux K21.9 Hypercholesteremia E78.00 Fecal impaction K56.41
[2023-05-30] MEDS: POLYETHYLENE (MIRALAX) 17 GM PACK PO SCH (17:40)
[2023-05-30] MEDS: FENOFIBRATE NANOCRYSTALLIZED 145 MG TABLET PO SCH (20:24)
[2023-05-30] MEDS: ROSUVASTATIN CALCIUM 20 MG TAB PO SCH (20:25)
[2023-05-30] MEDS ORDERED: PARoxetine HCL 20 MG TAB PO SCH (21:00)
[2023-05-31] MEDS ORDERED: ALBUT/IPRATROP 3MG/0.5MG NEB 3 ML VIAL NEB PRN (03:10)
--- NOTE | 2023-05-31 03:11 | Billing Data ---
Date of Service May 31, 2023 Coding Level of Care Code 57792 INT INP/OBS CARE
[2023-05-31 04:09] LABS: Hematocrit (blood only) 39.6 % (37.0-47.0); Hemoglobin 13.2 g/dl (12.0-16.0); Mean Corpuscular Hemoglobin 30.7 pg (25.0-34.0); Mean Corpuscular Hgb Conc 33.3 g/dL (32.0-36.0); Mean Corpuscular Volume 92.1 fL (80.0-100.0); Mean Platelet Volume 10.8 fL (9.4-12.4); Platelet Count 178 K/uL (130-400); RDW Coefficient of Variation 13.3 % (11.5-14.5); RDW Standard Deviation 45.2 fL (36.4-46.3); White Blood Count 7.03 K/ul (4.8-10.8)
[2023-05-31 04:28] LABS: BUN Creatinine Ratio 28.3 (10-20); Calcium 8.8 mg/dl (8.6-10.3); Est GFR (African American) 99.8 ml/min; Est GFR (Non-African American) 86.1 ml/min; Potassium 3.2 mmol/L (3.5-5.1)
[2023-05-31] MEDS: cefTRIAXone SODIUM 2,000 MG in DEXTROSE 5 % MINI-B 50 ML IV SCH (06:22)
[2023-05-31] MEDS: CARBIDOPA/LEVODOPA 25/100MG TAB PO SCH ×3 (08:08→20:07)
[2023-05-31] MEDS: ASPIRIN 81 MG ECTAB PO SCH (09:34)
[2023-05-31] MEDS: ENOXAPARIN INJ 40 MG/0.4 ML SYR SQ SCH (09:34)
[2023-05-31] MEDS: MULTIVITAMIN TAB PO SCH (09:35)
[2023-05-31] MEDS: PANTOprazole 40 MG TAB PO SCH (09:35)
[2023-05-31] MEDS: POLYETHYLENE (MIRALAX) 17 GM PACK PO SCH (09:35)
[2023-05-31] MEDS: SENNA 8.6 MG TAB PO SCH (09:36)
[2023-05-31] MEDS: PRIMIDONE 50 MG TAB PO SCH ×2 (09:36→20:07)
[2023-05-31] MEDS: guaiFENesin 600 MG TABCR PO SCH ×2 (09:36→20:09)
[2023-05-31] MEDS: POTASSIUM CHLORIDE CRTAB 20 MEQ TABCR PO SCH (12:17)
[2023-05-31] MEDS: REMDESIVIR 100 MG in SODIUM CHLORIDE 0.9% 230 ML IV SCH (15:05)
--- NOTE | 2023-05-31 18:53 | Hospitalist Progress Note ---
Date of Service May 31, 2023 Assessment & Plan (1) Complicated urinary tract infection: Plan: 82 F with PMH Parkinson's disease, anxiety/depression, esophageal reflux, hypercholesterolemia, and recent UTI managed in the outpatient setting, who presented to the ER with generalized malaise, progressive weakness x 1 week. Currently stable, admitted to the hospital for continued management of UTI refractory to initial antibiotic treatment. Complicated UTI -Recently finished Augmentin 875 mg twice daily x 7 days started 05/13/2023. -UA: 4+ bacteriuria, positive for leukocyte esterase and nitrites. Patient symptomatic (malodorous urine, urinary frequency) but afebrile, with normal white count. -urine culture: gram negative bacilli * Admitted to [facility] telemetry * Started IV ceftriaxone 2 g daily x 10 days total course * CT-KUB obtained 05/30 no urinary obstruction or stones * Trend clinical improvement COVID-19 * Continue remdesivir x 5 days * mildly hypoxic on 2L O2, start dexamethasone if worsening hypoxia but defer for now * continue guaifenex, tolerating * Isolation precautions (COVID-19) ordered Stercoral proctitis / fecal impaction - seen on CT -ordered enema but I do not think it was given -ordered bowel regimen, also unclear whether she has had a stool last 24h, not charted in I/O or nursing notes Replaced hypokalemia with po potassium Weakness -Patient has some weakness at baseline due to Parkinson's disease. However, current worsening has been acute and below baseline, per daughter. -related to COVID-19, UTI * UTI treatment as above * Trend clinical improvement, also as above * PT/OT ordered for evaluation appreciate d/c recs unclear whether she can return to [facility] or will need SNF stay Parkinson's disease * Continue home carbidopa/levodopa 25/100 mg, primidone 50 mg, stable Anxiety/Depression * Continue home paroxetine 30 mg Esophageal reflux * Continue home Protonix 40 mg daily Hypercholesterolemia * Continue home rosuvastatin 20 mg Code: Full code Dispo: Med-Surg. telemetry not necessary. FEN/GI: Heart healthy DVT Prophylaxis: Lovenox 40 mg q24h PT/OT: Yes (2) COVID-19: (3) Weakness: (4) Parkinsons disease: (5) Depression: (6) Anxiety: (7) Esophageal reflux: (8) Hypercholesteremia: Admission and Anticipated Discharge Date Admission Date: May 29, 2023 Subjective feeling better but still feels very weak, significant cough but stronger cough and much more alert today unclear based on charting and conversation with patient and her son whether she had a stool since yesterday - her son thinks so, but she can't remember lower abdominal / SP tenderness persists Physical Exam 2 Physical Exam: PHYSICAL EXAMINATION Last 24h vital signs reviewed, see documentation in flowsheet General: awake alert lying in bed HEENT: Normocephalic, atraumatic, pupils round and equal, sclerae anicteric, no conjunctival injection, moist mucus membranes Lungs: Normal respiratory effort. coarse ronchi bilaterally all wheeler but improved, cough stronger, clearing secretions better Heart: Regular rate and rhythm, no murmurs. No JVD Abdomen: Soft, nontender except mild in SP area unchanged 05/31, nondistended. Bowel sounds present. Extremities: Warm, dry, well-perfused. No extremity edema. Neuro: Alert and oriented x hospital and basic situation, vague historian, more alert and interactive today, face symmetric, moves 4 extremities well Psych: Normal affect and behavior Results & Data Results & Data Vital Signs (Past 12 Hours) Vital Signs Pulse Resp BP Pulse Ox 05/31/23 17:00 129/68 05/31/23 17:00 67 19 97 05/31/23 16:00 66 21 94 05/31/23 16:00 123/64 05/31/23 14:00 136/73 05/31/23 14:00 68 22 05/31/23 13:00 133/98 05/31/23 13:00 72 20 05/31/23 12:00 149/68 H 05/31/23 12:00 72 24 05/31/23 11:12 89 L 05/31/23 11:12 130/66 05/31/23 11:08 123/71 05/31/23 11:08 86 22 89 L 05/31/23 11:00 132/67 05/31/23 11:00 74 23 93 05/31/23 10:00 121/69 05/31/23 10:00 73 20 94 05/31/23 09:00 126/65 05/31/23 09:00 74 19 94 05/31/23 08:00 121/82 05/31/23 08:00 72 18 94 05/31/23 07:00 77 22 128/63 95 05/31/23 06:59 78 Laboratory Results 05/31/23 03:41 05/31/23 03:41 PG Care Time/CCT Total # of Minutes Spent Total Time Spent with Patient: Total time spent is greater than 50% in coordination of care (as documented) at patient's floor/unit and/or counseling patient: Coding Level of Care Code 14257 SUB INP/OBS CARE 2/35MIN Diagnoses Complicated urinary tract infection N39.0 COVID-19 U07.1 Weakness R53.1 Parkinsons disease G20 Depression F32.9 Anxiety F41.9 Esophageal reflux K21.9 Hypercholesteremia E78.00
[2023-05-31] MEDS: FENOFIBRATE NANOCRYSTALLIZED 145 MG TABLET PO SCH (20:08)
[2023-05-31] MEDS: ROSUVASTATIN CALCIUM 20 MG TAB PO SCH (20:08)
[2023-05-31] MEDS: PARoxetine HCL 10 MG TAB PO SCH (20:09)
[2023-06-01 05:10] LABS: Hematocrit (blood only) 35.8 % (37.0-47.0); Hemoglobin 12.1 g/dl (12.0-16.0); Mean Corpuscular Hemoglobin 30.8 pg (25.0-34.0); Mean Corpuscular Hgb Conc 33.8 g/dL (32.0-36.0); Mean Corpuscular Volume 91.1 fL (80.0-100.0); Platelet Count 197 K/uL (130-400); RDW Coefficient of Variation 13.3 % (11.5-14.5); RDW Standard Deviation 44.9 fL (36.4-46.3); Red Blood Count 3.93 M/uL (4.20-5.40); White Blood Count 5.82 K/ul (4.8-10.8)
[2023-06-01 05:24] LABS: BUN Creatinine Ratio 33.8 (10-20); Creatinine Clr Calc Pharmacy 58.2 ml/min; Est GFR (African American) 97.2 ml/min; Est GFR (Non-African American) 83.9 ml/min; Potassium 3.4 mmol/L (3.5-5.1)
[2023-06-01] MEDS: cefTRIAXone SODIUM 2,000 MG in DEXTROSE 5 % MINI-B 50 ML IV SCH (05:54)
[2023-06-01] MEDS ORDERED: POTASSIUM CHLORIDE CRTAB 20 MEQ TABCR PO STA (07:55)
[2023-06-01] MEDS: POLYETHYLENE (MIRALAX) 17 GM PACK PO SCH (08:24)
[2023-06-01] MEDS: SENNA 8.6 MG TAB PO SCH (08:25)
[2023-06-01] MEDS: POTASSIUM CHLORIDE CRTAB 20 MEQ TABCR PO SCH (08:29)
[2023-06-01] MEDS: ASPIRIN 81 MG ECTAB PO SCH (08:29)
[2023-06-01] MEDS: MULTIVITAMIN TAB PO SCH (08:29)
[2023-06-01] MEDS: ENOXAPARIN INJ 40 MG/0.4 ML SYR SQ SCH (08:29)
[2023-06-01] MEDS: guaiFENesin 600 MG TABCR PO SCH ×2 (08:30→20:57)
[2023-06-01] MEDS: CARBIDOPA/LEVODOPA 25/100MG TAB PO SCH ×3 (08:30→16:08)
[2023-06-01] MEDS: PANTOprazole 40 MG TAB PO SCH (08:30)
[2023-06-01] MEDS: PRIMIDONE 50 MG TAB PO SCH ×2 (08:30→20:58)
[2023-06-01] MEDS: REMDESIVIR 100 MG in SODIUM CHLORIDE 0.9% 230 ML IV SCH (11:38)
[2023-06-01] MEDS ORDERED: bisacodyL 10 MG SUPP PR PRN (15:12)
--- NOTE | 2023-06-01 15:25 | Hospitalist Progress Note ---
Date of Service June 01, 2023 Assessment & Plan (1) Complicated urinary tract infection: Plan: 82 F with PMH Parkinson's disease, anxiety/depression, esophageal reflux, hypercholesterolemia, and recent UTI managed in the outpatient setting, who presented to the ER with generalized malaise, progressive weakness x 1 week. Currently stable, admitted to the hospital for continued management of UTI refractory to initial antibiotic treatment. UTI - was started on augmentin after UA 05/13 with pyuria, culture at that time was polymicrobial. on admission continued to have pyuria on UA, SP tenderness and urinary symptoms (though perhaps more related to fecal impaction), culture has grown 100K malloy- sens Klebsiella -CT-KUB with no obstruction and no nephrolithiasis -symptoms resolved -received 3 doses ceftriaxone, change to cephalexin to complete total 7d course (2) COVID-19: Plan: High risk was severely congested and mildly hypoxic so elected to treat with remdesivir x 5 days -continue guaifenex -significantly improved no longer hypoxic on 06/01 -remains physically weaker than baseline (3) Fecal impaction: Plan: Fecal impaction and stercoral proctitis seen on CT This relates to her persistent pelvic symptoms and can contribute to UTI -ordered enema but not done -continue miralax and senna scheduled -had stool last night -needs ongoing bowel regimen after discharge, constipation can be prominent in PD (4) Parkinsons disease: Plan: continue Sinemet and primidone stable, at baseline (5) Weakness: Plan: PT/OT Discussed with inpatient care manager rn who spoke with her LONG TERM - will need rehab or SNF prior to returning since she is below her functional baseline and not independent (6) Depression: (7) Anxiety: (8) Esophageal reflux: (9) Hypercholesteremia: Plan Anxiety/Depression * Continue home paroxetine 30 mg Esophageal reflux * Continue home Protonix 40 mg daily Hypercholesterolemia * Continue home rosuvastatin 20 mg I updated her son at bedside 05/31, 06/01 DVT ppx: enoxaparin 40 sq daily Admission and Anticipated Discharge Date Admission Date: May 29, 2023 Subjective doing better, feeling stronger, cough/congestion much improved, no longer on O2, dysuria and SP pain resolved, had a stool last night Physical Exam 2 Physical Exam: PHYSICAL EXAMINATION Last 24h vital signs reviewed, see documentation in flowsheet General: awake alert lying in bed, looks much stronger HEENT: Normocephalic, atraumatic, pupils round and equal, sclerae anicteric, no conjunctival injection, moist mucus membranes Lungs: Normal respiratory effort. CTAB anteriorly no longer coarse Heart: Regular rate and rhythm, no murmurs. No JVD Abdomen: Soft, nontender, SP area now nontender, nondistended. Bowel sounds present. Extremities: Warm, dry, well-perfused. No extremity edema. Neuro: Alert and oriented x hospital and basic situation, vague historian, alert and interactive today, face symmetric, moves 4 extremities well. mild-mod LUE>RUE cogwheeling and rigidity Psych: Normal affect and behavior Results & Data Results & Data Vital Signs (Past 12 Hours) Vital Signs Pulse Resp BP Pulse Ox 06/01/23 12:00 68 20 92 06/01/23 12:00 139/71 06/01/23 11:00 70 16 91 06/01/23 11:00 129/67 06/01/23 10:00 79 22 93 06/01/23 10:00 153/74 H 06/01/23 09:00 141/115 H 06/01/23 09:00 74 21 87 L 06/01/23 08:07 145/69 H 06/01/23 08:07 67 20 92 06/01/23 08:00 71 19 82 L 06/01/23 07:30 65 17 94 06/01/23 07:06 64 06/01/23 07:00 63 17 94 06/01/23 07:00 132/76 06/01/23 06:45 66 21 94 Laboratory Results 06/01/23 04:40 06/01/23 04:40 PG Care Time/CCT Total # of Minutes Spent Total Time Spent with Patient: Total time spent is greater than 50% in coordination of care (as documented) at patient's floor/unit and/or counseling patient: Coding Level of Care Code 94141 SUB INP/OBS CARE 2/35MIN Diagnoses Complicated urinary tract infection N39.0 COVID-19 U07.1 Fecal impaction K56.41 Parkinsons disease G20 Weakness R53.1 Depression F32.9 Anxiety F41.9 Esophageal reflux K21.9 Hypercholesteremia E78.00
[2023-06-01] MEDS: FENOFIBRATE NANOCRYSTALLIZED 145 MG TABLET PO SCH (20:57)
[2023-06-01] MEDS: PARoxetine HCL 10 MG TAB PO SCH (20:58)
[2023-06-01] MEDS: ROSUVASTATIN CALCIUM 20 MG TAB PO SCH (20:59)
[2023-06-02] MEDS: cephALEXin 500 MG CAP PO SCH ×4 (05:42→20:15)
[2023-06-02 07:19] LABS: Hematocrit (blood only) 36.8 % (37.0-47.0); Hemoglobin 12.6 g/dl (12.0-16.0); Mean Corpuscular Hemoglobin 30.4 pg (25.0-34.0); Mean Corpuscular Hgb Conc 34.2 g/dL (32.0-36.0); Mean Corpuscular Volume 88.7 fL (80.0-100.0); Mean Platelet Volume 11.1 fL (9.4-12.4); Platelet Count 236 K/uL (130-400); RDW Coefficient of Variation 13.1 % (11.5-14.5); RDW Standard Deviation 42.6 fL (36.4-46.3); Red Blood Count 4.15 M/uL (4.20-5.40); White Blood Count 5.39 K/ul (4.8-10.8)
[2023-06-02 07:51] LABS: Calcium 9.1 mg/dl (8.6-10.3); Potassium 3.7 mmol/L (3.5-5.1)
[2023-06-02 07:57] LABS: BUN Creatinine Ratio 28.1 (10-20); Creatinine Clr Calc Pharmacy 66.3 ml/min; Est GFR (African American) 101.5 ml/min; Est GFR (Non-African American) 87.6 ml/min
[2023-06-02] MEDS: CARBIDOPA/LEVODOPA 25/100MG TAB PO SCH ×3 (09:22→18:01)
[2023-06-02] MEDS: guaiFENesin 600 MG TABCR PO SCH (09:23)
[2023-06-02] MEDS: MULTIVITAMIN TAB PO SCH (09:23)
[2023-06-02] MEDS: ENOXAPARIN INJ 40 MG/0.4 ML SYR SQ SCH (09:23)
[2023-06-02] MEDS: POTASSIUM CHLORIDE 10 MEQ TABCR PO SCH (09:23)
[2023-06-02] MEDS: SENNA 8.6 MG TAB PO SCH (09:23)
[2023-06-02] MEDS: PANTOprazole 40 MG TAB PO SCH (09:23)
[2023-06-02] MEDS: ASPIRIN 81 MG ECTAB PO SCH (09:23)
[2023-06-02] MEDS: PRIMIDONE 50 MG TAB PO SCH ×2 (09:23→20:15)
[2023-06-02] MEDS: POLYETHYLENE (MIRALAX) 17 GM PACK PO SCH (09:23)
[2023-06-02] MEDS: REMDESIVIR 100 MG in SODIUM CHLORIDE 0.9% 230 ML IV SCH (11:58)
--- NOTE | 2023-06-02 15:58 | Hospitalist Progress Note ---
Date of Service June 02, 2023 Assessment & Plan (1) Complicated urinary tract infection: Plan: 82 F with PMH Parkinson's disease, anxiety/depression, esophageal reflux, hypercholesterolemia, and recent UTI managed in the outpatient setting, who presented to the ER with generalized malaise, progressive weakness x 1 week. Currently stable, admitted to the hospital for continued management of UTI refractory to initial antibiotic treatment. UTI - was started on augmentin after UA 05/13 with pyuria, culture at that time was polymicrobial. on admission continued to have pyuria on UA, SP tenderness and urinary symptoms (though perhaps more related to fecal impaction), culture has grown 100K malloy- sens Klebsiella -CT-KUB with no obstruction and no nephrolithiasis -symptoms resolved -received 3 doses ceftriaxone, changed to cephalexin to complete total 7d course (2) COVID-19: Plan: High risk was severely congested and mildly hypoxic so elected to treat with remdesivir x 5 days -stop guaifenex since confused and cough improved, dc robitussin received no doses -significantly improved no longer hypoxic since 06/01 -remains physically weaker than baseline (3) Acute metabolic encephalopathy: Plan: Was present on admission - lethargic, confused - caused by acute respiratory failure related to COVID-19, UTI. Continues with some acute delirium, waxing waning mental status and day/night reversal but improved overall -reviewed medlist and stopped guaifenex, robitussin (not getting) -HS melatonin (4) Fecal impaction: Plan: Fecal impaction and stercoral proctitis seen on CT This relates to her persistent pelvic symptoms and can contribute to UTI -ordered enema but not done -continue miralax and senna scheduled, had stools last 2 days -needs ongoing bowel regimen after discharge, constipation can be prominent in PD (5) Parkinsons disease: Plan: continue Sinemet and primidone stable, at baseline (6) Weakness: Plan: PT/OT Discussed with senior caregiver who spoke with her LOUIE - will need rehab or SNF prior to returning since she is below her functional baseline and not independent (7) Depression: (8) Anxiety: (9) Esophageal reflux: (10) Hypercholesteremia: Plan Anxiety/Depression * Continue home paroxetine 30 mg Esophageal reflux * Continue home Protonix 40 mg daily Hypercholesterolemia * Continue home rosuvastatin 20 mg I updated her son at bedside 05/31, 06/01, 06/02 DVT ppx: enoxaparin 40 sq daily Admission and Anticipated Discharge Date Admission Date: May 29, 2023 Subjective Nai is feeling better her son at bedside reports she is a little confused thinks she is in her home but knows I am her doctor and knows she is here for COVID-19 Now eating well, had stool this AM, +cough, no dyspnea or CP, no abdominal pain or dysuria Physical Exam 2 Physical Exam: PHYSICAL EXAMINATION Last 24h vital signs reviewed, see documentation in flowsheet General: awake alert sitting in bed eating HEENT: Normocephalic, atraumatic, pupils round and equal, sclerae anicteric, no conjunctival injection, moist mucus membranes Lungs: Normal respiratory effort. CTAB anteriorly no longer coarse no wheezing Heart: Regular rate and rhythm, no murmurs. No JVD Abdomen: Soft, nontender, nondistended. Bowel sounds present. Extremities: Warm, dry, well-perfused. No extremity edema. Neuro: Alert and oriented x situation self son and doctor but thinks she is in her home, vague historian, alert and interactive today, face symmetric, moves 4 extremities Psych: Normal affect and behavior Results & Data Results & Data Vital Signs (Past 12 Hours) Vital Signs Temp Pulse Pulse Resp BP Pulse Ox O2 Del Method 06/02/23 12:14 36.2 C L 70 18 128/72 95 Room Air 06/02/23 09:40 Room Air 06/02/23 09:01 36.7 C 68 18 180/75 H 93 Room Air 06/02/23 07:38 69 06/02/23 04:21 36.8 C 66 18 170/71 H 94 Room Air Laboratory Results 06/02/23 06:34 06/02/23 06:34 PG Care Time/CCT Total # of Minutes Spent Total Time Spent with Patient: Total time spent is greater than 50% in coordination of care (as documented) at patient's floor/unit and/or counseling patient: Coding Level of Care Code 82170 SUB INP/OBS CARE 2/35MIN Diagnoses Complicated urinary tract infection N39.0 COVID-19 U07.1 Acute metabolic encephalopathy G93.41 Fecal impaction K56.41 Parkinsons disease G20 Weakness R53.1 Depression F32.9 Anxiety F41.9 Esophageal reflux K21.9 Hypercholesteremia E78.00
[2023-06-02] MEDS: PARoxetine HCL 10 MG TAB PO SCH (20:16)
[2023-06-02] MEDS: FENOFIBRATE NANOCRYSTALLIZED 145 MG TABLET PO SCH (20:16)
[2023-06-02] MEDS: ROSUVASTATIN CALCIUM 20 MG TAB PO SCH (20:16)
[2023-06-03 06:49] LABS: Hematocrit (blood only) 39.6 % (37.0-47.0); Hemoglobin 13.8 g/dl (12.0-16.0); Mean Corpuscular Hemoglobin 30.8 pg (25.0-34.0); Mean Corpuscular Hgb Conc 34.8 g/dL (32.0-36.0); Mean Corpuscular Volume 88.4 fL (80.0-100.0); Mean Platelet Volume 10.5 fL (9.4-12.4); Platelet Count 300 K/uL (130-400); RDW Coefficient of Variation 12.8 % (11.5-14.5); RDW Standard Deviation 41.4 fL (36.4-46.3); Red Blood Count 4.48 M/uL (4.20-5.40); White Blood Count 5.66 K/ul (4.8-10.8)
[2023-06-03 07:09] LABS: BUN Creatinine Ratio 30.5 (10-20); Calcium 9.4 mg/dl (8.6-10.3); Est GFR (African American) 100.3 ml/min; Est GFR (Non-African American) 86.6 ml/min; Potassium 3.6 mmol/L (3.5-5.1)
[2023-06-03] MEDS: PRIMIDONE 50 MG TAB PO SCH ×2 (07:36→21:33)
[2023-06-03] MEDS: ASPIRIN 81 MG ECTAB PO SCH (07:39)
[2023-06-03] MEDS: cephALEXin 500 MG CAP PO SCH ×4 (07:39→21:30)
[2023-06-03] MEDS: PANTOprazole 40 MG TAB PO SCH (07:39)
[2023-06-03] MEDS: CARBIDOPA/LEVODOPA 25/100MG TAB PO SCH ×3 (07:39→16:22)
[2023-06-03] MEDS: MULTIVITAMIN TAB PO SCH (07:39)
[2023-06-03] MEDS: SENNA 8.6 MG TAB PO SCH (07:40)
[2023-06-03] MEDS: POLYETHYLENE (MIRALAX) 17 GM PACK PO SCH (07:41)
[2023-06-03] MEDS: ENOXAPARIN INJ 40 MG/0.4 ML SYR SQ SCH (07:41)
[2023-06-03] MEDS: POTASSIUM CHLORIDE 10 MEQ TABCR PO SCH (07:42)
[2023-06-03] MEDS: REMDESIVIR 100 MG in SODIUM CHLORIDE 0.9% 230 ML IV SCH (11:53)
--- NOTE | 2023-06-03 14:27 | Hospitalist Progress Note ---
Date of Service June 03, 2023 Assessment & Plan (1) Complicated urinary tract infection: Plan: 82 F with PMH Parkinson's disease, anxiety/depression, esophageal reflux, hypercholesterolemia, and recent UTI managed in the outpatient setting, who presented to the ER with generalized malaise, progressive weakness x 1 week. Currently stable, admitted to the hospital for COVID-19 and continued management of UTI refractory to initial antibiotic treatment. UTI - was started on augmentin after UA 05/13 with pyuria, but culture at that time was polymicrobial. on admission continued to have pyuria on UA, SP tenderness and urinary symptoms (though perhaps more related to fecal impaction), culture has grown 100K malloy- sens Klebsiella -CT-KUB with no obstruction and no nephrolithiasis -symptoms resolved -received 3 doses ceftriaxone, changed to cephalexin to complete total 7d course Labs reviewed 06/03 - CBC normal, hypokalemia improved K normal at 3.6, Cr stable at 0.6 (2) COVID-19: Plan: High risk was severely congested and mildly hypoxic so elected to treat with remdesivir x 5 days. completed 06/03. AST/ALT renal function normal today. -stopped guaifenex since confused and cough improved, dc robitussin received no doses -significantly improved no longer hypoxic since 06/01 -remains physically weaker than baseline (3) Acute metabolic encephalopathy: Plan: Was present on admission - lethargic, confused - caused by acute respiratory failure related to COVID-19, UTI. Continues with some acute delirium, waxing waning mental status and day/night reversal but improved overall -reviewed medlist and stopped guaifenex, robitussin (not getting) -HS melatonin (4) Fecal impaction: Plan: Fecal impaction and stercoral proctitis seen on CT This relates to her persistent pelvic symptoms and can contribute to UTI -ordered enema but not done -continue miralax and senna scheduled, had stools last 3 days -needs ongoing bowel regimen after discharge, constipation can be prominent in PD (5) Parkinsons disease: Plan: continue Sinemet and primidone stable, at baseline (6) Weakness: Plan: PT/OT Discussed with home care associate who spoke with her [facility] - will need rehab prior to returning since she is below her functional baseline and not independent (7) Depression: (8) Anxiety: (9) Esophageal reflux: (10) Hypercholesteremia: Plan L hand swelling - RN reported L hand redness and swelling evening of 06/02, elevated extremity. examined today seems to have resolved. monitor Anxiety/Depression * Continue home paroxetine 30 mg Esophageal reflux * Continue home Protonix 40 mg daily Hypercholesterolemia * Continue home rosuvastatin 20 mg I updated her son at bedside 05/31, 06/01, 06/02 DVT ppx: enoxaparin 40 sq daily Admission and Anticipated Discharge Date Admission Date: May 29, 2023 Subjective seen in AM and was sleeping, aroused to voice, oriented to "[employer]" still has cough, denies dyspnea, denies L hand/wrist pain "except for my fingernails" Physical Exam 2 Physical Exam: PHYSICAL EXAMINATION Last 24h vital signs reviewed, see documentation in flowsheet General: awake alert sitting in bed eating HEENT: Normocephalic, atraumatic, pupils round and equal, sclerae anicteric, no conjunctival injection, moist mucus membranes Lungs: Normal respiratory effort. CTAB anteriorly no longer coarse no wheezing Heart: Regular rate and rhythm, no murmurs. No JVD Abdomen: Soft, nontender, nondistended. Bowel sounds present. Extremities: Warm, dry, well-perfused. No extremity edema. left hand without erythema or swelling, contracture involving L 3-5th digits Neuro: sleepy but arouses easily and oriented x "[employer]" but thinks she is in hospital for "anxiety", vague historian, face symmetric, moves 4 extremities, L hand contracture Psych: Normal affect and behavior Results & Data Results & Data Vital Signs (Past 12 Hours) Vital Signs Temp Pulse Resp BP Pulse Ox O2 Del Method 06/03/23 11:53 37.1 C 81 16 123/72 95 Room Air 06/03/23 11:03 Room Air 06/03/23 07:48 36.4 C L 72 18 164/73 H 95 Room Air Laboratory Results 06/03/23 06:25 06/03/23 06:25 PG Care Time/CCT Total # of Minutes Spent Total Time Spent with Patient: Total time spent is greater than 50% in coordination of care (as documented) at patient's floor/unit and/or counseling patient: Coding Level of Care Code 54010 SUB INP/OBS CARE 2/35MIN Diagnoses Complicated urinary tract infection N39.0 COVID-19 U07.1 Acute metabolic encephalopathy G93.41 Fecal impaction K56.41 Parkinsons disease G20 Weakness R53.1 Depression F32.9 Anxiety F41.9 Esophageal reflux K21.9 Hypercholesteremia E78.00
[2023-06-03] MEDS: ACETAMINOPHEN 325 MG TAB PO PRN (16:23)
[2023-06-03] MEDS: PARoxetine HCL 10 MG TAB PO SCH (21:32)
[2023-06-03] MEDS: FENOFIBRATE NANOCRYSTALLIZED 145 MG TABLET PO SCH (21:32)
[2023-06-03] MEDS: ROSUVASTATIN CALCIUM 20 MG TAB PO SCH (21:33)
--- NOTE | 2023-06-04 07:16 | Hospitalist Progress Note ---
Date of Service June 04, 2023 Assessment & Plan (1) Complicated urinary tract infection: Plan: 82 F with PMH Parkinson's disease, anxiety/depression, esophageal reflux, hypercholesterolemia, and recent UTI managed in the outpatient setting, who presented to the ER with generalized malaise, progressive weakness x 1 week. Currently stable, admitted to the hospital for COVID-19 and continued management of UTI refractory to initial antibiotic treatment. UTI - was started on augmentin after UA 05/13 with pyuria, but culture at that time was polymicrobial. on admission continued to have pyuria on UA, SP tenderness and urinary symptoms (though perhaps more related to fecal impaction), culture has grown 100K malloy- sens Klebsiella -CT-KUB with no obstruction and no nephrolithiasis -symptoms resolved -received 3 doses ceftriaxone, changed to cephalexin to complete total 7d course - continue Labs reviewed 06/03 - CBC normal, hypokalemia improved K normal at 3.6, Cr stable at 0.6 (2) COVID-19: Plan: High risk was severely congested and mildly hypoxic so elected to treat with remdesivir x 5 days. completed 06/03. AST/ALT renal function remained normal -stopped guaifenex since confused and cough improved, dc robitussin received no doses -significantly improved no longer hypoxic since 06/01 -remains physically weaker than baseline (3) Redness and swelling of forearm: Plan: mild erythema and warmth distal L forearm radial side prox to wrist. Nontender no deformity, no PIV site this area -xray ordered (4) Acute metabolic encephalopathy: Plan: Was present on admission - lethargic, confused - caused by acute respiratory failure related to COVID-19, UTI. Continues with some acute delirium, waxing waning mental status and day/night reversal but improved overall -reviewed medlist and stopped guaifenex, robitussin (not getting) -HS melatonin (5) Fecal impaction: Plan: Fecal impaction and stercoral proctitis seen on CT This relates to her persistent pelvic symptoms and can contribute to UTI -miralax and senna scheduled, now having daily stools - continue -needs ongoing bowel regimen after discharge, constipation can be prominent in PD (6) Parkinsons disease: Plan: continue Sinemet and primidone stable, at baseline (7) Weakness: Plan: PT/OT - last on 06/02 Discussed with home health care worker who spoke with her [facility] - will need rehab prior to returning since she is below her functional baseline and not independent (8) Depression: (9) Anxiety: (10) Esophageal reflux: (11) Hypercholesteremia: Plan L hand swelling - RN reported L hand redness and swelling evening of 06/02, elevated extremity. examined today seems to have resolved. monitor Anxiety/Depression * Continue home paroxetine 30 mg Esophageal reflux * Continue home Protonix 40 mg daily Hypercholesterolemia * Continue home rosuvastatin 20 mg I updated her son at bedside 05/31, 06/01, 06/02 DVT ppx: enoxaparin 40 sq daily Admission and Anticipated Discharge Date Admission Date: May 29, 2023 Subjective Nai doing ok today seen early is awake eating oatmeal, still with cough, no dyspnea. No pain LUE has some erythema/inflammation overlying distal radius can't recall any injury. Now having daily BMs. Physical Exam 2 Physical Exam: PHYSICAL EXAMINATION Last 24h vital signs reviewed, see documentation in flowsheet General: awake alert sitting in bed eating oatmeal HEENT: Normocephalic, atraumatic, pupils round and equal, sclerae anicteric, no conjunctival injection, moist mucus membranes Lungs: comfortable resp, occ cough, CTA maye ant no rrw Heart: Regular rate and rhythm, no murmurs. No JVD Abdomen: Soft, nontender, nondistended. Bowel sounds present. Extremities: Warm, dry, well-perfused. No extremity edema. left hand without erythema or swelling, contracture involving L 3-5th digits unchanged, mild erythema/inflammation distal forearm just prox to wrist overlying distal radius nontender no deformity, no pain on ROM of wrist Neuro: awake and oriented x hospital, vague historian, face symmetric, moves 4 extremities, subtle L facial droop, L hand contracture, can wiggle both feet but didn't fully cooperate with strength exam Psych: Normal affect and behavior Results & Data Results & Data Vital Signs (Past 12 Hours) Vital Signs Temp Pulse Resp BP Pulse Ox O2 Del Method 06/04/23 00:56 37.0 C 65 18 152/61 H 94 Room Air 06/03/23 23:37 Room Air Laboratory Results 06/03/23 06:25 06/03/23 06:25 PG Care Time/CCT Total # of Minutes Spent Total Time Spent with Patient: Total time spent is greater than 50% in coordination of care (as documented) at patient's floor/unit and/or counseling patient: Coding Level of Care Code 20412 SUB INP/OBS CARE 2/35MIN Diagnoses Complicated urinary tract infection N39.0 COVID-19 U07.1 Redness and swelling of forearm M79.89; R23.8 Acute metabolic encephalopathy G93.41 Fecal impaction K56.41 Parkinsons disease G20 Weakness R53.1 Depression F32.9 Anxiety F41.9 Esophageal reflux K21.9 Hypercholesteremia E78.00
[2023-06-04] MEDS: SENNA 8.6 MG TAB PO SCH (07:49)
[2023-06-04] MEDS: ENOXAPARIN INJ 40 MG/0.4 ML SYR SQ SCH (07:49)
[2023-06-04] MEDS: MULTIVITAMIN TAB PO SCH (07:49)
[2023-06-04] MEDS: cephALEXin 500 MG CAP PO SCH ×4 (07:49→21:47)
[2023-06-04] MEDS: ASPIRIN 81 MG ECTAB PO SCH (07:50)
[2023-06-04] MEDS: PANTOprazole 40 MG TAB PO SCH (07:50)
[2023-06-04] MEDS: CARBIDOPA/LEVODOPA 25/100MG TAB PO SCH ×3 (07:50→15:13)
[2023-06-04] MEDS: PRIMIDONE 50 MG TAB PO SCH ×2 (07:51→21:47)
[2023-06-04] MEDS: POLYETHYLENE (MIRALAX) 17 GM PACK PO SCH (07:51)
[2023-06-04] MEDS: POTASSIUM CHLORIDE 10 MEQ TABCR PO SCH (08:58)
--- NOTE | 2023-06-04 16:17 | XRay Report ---
LEFT FOREARM 2 VIEWS CLINICAL HISTORY: Left forearm warmth and erythema. FINDINGS: AP and crosstable lateral views of the left forearm are obtained. No prior studies are avai lable for comparison at the time of dictation. The skeletal structures are osteopenic. There is no ra diographic evidence of left forearm fracture. The wrist and elbow joints are grossly maintained. Arth ritic change is noted in the wrist. Mild soft tissue swelling is seen in the distal forearm and aroun d the wrist. No soft tissue gas or radiodense foreign body is identified. IMPRESSION: Soft tissue swelling with no acute bony abnormality identified. Electronically signed by: Zhen Wyatt M.D. 06/04/2023 4:16 PM
[2023-06-04] MEDS: ROSUVASTATIN CALCIUM 20 MG TAB PO SCH (21:46)
[2023-06-04] MEDS: FENOFIBRATE NANOCRYSTALLIZED 145 MG TABLET PO SCH (21:47)
[2023-06-04] MEDS: PARoxetine HCL 10 MG TAB PO SCH (21:47)
[2023-06-05] MEDS: cephALEXin 500 MG CAP PO SCH ×4 (08:33→21:48)
[2023-06-05] MEDS: PRIMIDONE 50 MG TAB PO SCH ×2 (08:34→21:47)
[2023-06-05] MEDS: MULTIVITAMIN TAB PO SCH (08:36)
[2023-06-05] MEDS: SENNA 8.6 MG TAB PO SCH (08:36)
[2023-06-05] MEDS: ENOXAPARIN INJ 40 MG/0.4 ML SYR SQ SCH (08:36)
[2023-06-05] MEDS: ASPIRIN 81 MG ECTAB PO SCH (08:36)
[2023-06-05] MEDS: PANTOprazole 40 MG TAB PO SCH (08:36)
[2023-06-05] MEDS: CARBIDOPA/LEVODOPA 25/100MG TAB PO SCH ×3 (08:37→15:25)
[2023-06-05] MEDS: POTASSIUM CHLORIDE 10 MEQ TABCR PO SCH (09:28)
[2023-06-05] MEDS: POLYETHYLENE (MIRALAX) 17 GM PACK PO SCH (09:28)
--- NOTE | 2023-06-05 14:58 | Hospitalist Progress Note ---
Date of Service June 05, 2023 Assessment & Plan (1) Complicated urinary tract infection: Plan: 82 F with PMH Parkinson's disease, anxiety/depression, esophageal reflux, hypercholesterolemia, and recent UTI managed in the outpatient setting, who presented to the ER with generalized malaise, progressive weakness x 1 week. Currently stable, admitted to the hospital for COVID-19 and continued management of UTI refractory to initial antibiotic treatment. UTI - was started on augmentin after UA 05/13 with pyuria, but culture at that time was polymicrobial. on admission continued to have pyuria on UA, SP tenderness and urinary symptoms (though perhaps more related to fecal impaction), culture has grown 100K malloy- sens Klebsiella -CT-KUB with no obstruction and no nephrolithiasis -symptoms resolved -received 3 doses ceftriaxone, changed to cephalexin to complete total 7d course - end 06/07 Labs reviewed 06/03 - CBC normal, hypokalemia improved K normal at 3.6, Cr stable at 0.6 -AM BMP ordered (2) COVID-19: Plan: High risk was severely congested and mildly hypoxic so elected to treat with remdesivir x 5 days. completed 06/03. -significantly improved no longer hypoxic since 06/01, COVID symptoms have resolved at this time -remains physically weaker than baseline (3) Redness and swelling of forearm: Plan: mild erythema and warmth distal L forearm radial side prox to wrist. Nontender no deformity, no PIV site this area -xray ordered - no fracture -further hx from RN at bedside on 06/05 - this WAS a PIV site that infiltrated. continue elevation, monitor, improved (4) Acute metabolic encephalopathy: Plan: Was present on admission - lethargic, confused - caused by acute respiratory failure related to COVID-19, UTI. Continues with some acute delirium, waxing waning mental status and day/night reversal but improved overall -reviewed medlist and stopped guaifenex, robitussin (not getting) -HS melatonin -appears to be at baseline mental status (5) Fecal impaction: Plan: Fecal impaction and stercoral proctitis seen on CT This relates to her persistent pelvic symptoms and can contribute to UTI -miralax and senna scheduled, now having daily stools - continue -needs ongoing bowel regimen after discharge, constipation can be prominent in PD (6) Parkinsons disease: Plan: continue Sinemet and primidone stable, at baseline (7) Weakness: (8) Depression: (9) Anxiety: (10) Esophageal reflux: (11) Hypercholesteremia: Plan Anxiety/Depression * Continue home paroxetine 30 mg Esophageal reflux * Continue home Protonix 40 mg daily Hypercholesterolemia * Continue home rosuvastatin 20 mg updated her son at bedside 05/31, 06/01, 06/02, 06/05 DVT ppx: enoxaparin 40 sq daily PT/OT - last on 06/05 - rehab recommended Discussed with in home caregiver who spoke with her [facility] - will need rehab prior to returning since she is below her functional baseline and not independent Admission and Anticipated Discharge Date Admission Date: May 29, 2023 Subjective Nai doing well seen midday sitting in chair son and RN in room. No further cough or dyspnea. No SP pain or dysuria. Having daily BMs at this time. Weaker than baseline Physical Exam Physical Exam: PHYSICAL EXAMINATION Last 24h vital signs reviewed, see documentation in flowsheet General: sitting up in chair HEENT: Normocephalic, atraumatic, pupils round and equal, sclerae anicteric, no conjunctival injection, moist mucus membranes Lungs: nl WOB CTAB no rrw Heart: Regular rate and rhythm, no murmurs. No JVD Abdomen: Soft, nontender, nondistended. Bowel sounds present. No SP tenderness Extremities: Warm, dry, well-perfused. No extremity edema. left hand without erythema or swelling, contracture involving L 3-5th digits unchanged, mild erythema/inflammation distal forearm just prox to wrist overlying distal radius IMPROVED nontender no deformity, no pain on ROM of wrist Neuro: awake and oriented x hospital, vague historian, face symmetric, moves 4 extremities, subtle L facial droop, L hand contracture Results & Data Results & Data Vital Signs (Past 12 Hours) Vital Signs Temp Pulse Resp BP Pulse Ox O2 Del Method 06/05/23 09:58 Room Air 06/05/23 08:44 36.4 C L 70 18 131/69 94 Room Air PG Care Time/CCT Total # of Minutes Spent Total Time Spent with Patient: Total time spent is greater than 50% in coordination of care (as documented) at patient's floor/unit and/or counseling patient: Coding Level of Care Code 30154 SUB INP/OBS CARE 2/35MIN Diagnoses Complicated urinary tract infection N39.0 COVID-19 U07.1 Redness and swelling of forearm M79.89; R23.8 Acute metabolic encephalopathy G93.41 Fecal impaction K56.41 Parkinsons disease G20 Weakness R53.1 Depression F32.9 Anxiety F41.9 Esophageal reflux K21.9 Hypercholesteremia E78.00
[2023-06-05] MEDS: FENOFIBRATE NANOCRYSTALLIZED 145 MG TABLET PO SCH (21:47)
[2023-06-05] MEDS: PARoxetine HCL 10 MG TAB PO SCH (21:47)
[2023-06-05] MEDS: ROSUVASTATIN CALCIUM 20 MG TAB PO SCH (21:47)
[2023-06-05] MEDS: ACETAMINOPHEN 325 MG TAB PO PRN (21:49)
[2023-06-06] MEDS: CARBIDOPA/LEVODOPA 25/100MG TAB PO SCH ×3 (08:04→17:26)
[2023-06-06] MEDS: ASPIRIN 81 MG ECTAB PO SCH (08:04)
[2023-06-06] MEDS: PANTOprazole 40 MG TAB PO SCH (08:04)
[2023-06-06] MEDS: PRIMIDONE 50 MG TAB PO SCH ×2 (08:05→21:41)
[2023-06-06] MEDS: MULTIVITAMIN TAB PO SCH (08:05)
[2023-06-06] MEDS: SENNA 8.6 MG TAB PO SCH (08:05)
[2023-06-06] MEDS: cephALEXin 500 MG CAP PO SCH ×4 (08:05→21:41)
[2023-06-06] MEDS: ENOXAPARIN INJ 40 MG/0.4 ML SYR SQ SCH (08:06)
[2023-06-06] MEDS: POLYETHYLENE (MIRALAX) 17 GM PACK PO SCH (08:34)
[2023-06-06 08:42] LABS: BUN Creatinine Ratio 18.3 (10-20); Calcium 9.1 mg/dl (8.6-10.3); Creatinine Clr Calc Pharmacy 53.2 ml/min; Est GFR (African American) 93.2 ml/min; Est GFR (Non-African American) 80.4 ml/min
--- NOTE | 2023-06-06 15:39 | Hospitalist Progress Note ---
Date of Service June 06, 2023 Assessment & Plan (1) Complicated urinary tract infection: Plan: 82 F with PMH Parkinson's disease, anxiety/depression, esophageal reflux, hypercholesterolemia, and recent UTI managed in the outpatient setting, who presented to the ER with generalized malaise, progressive weakness x 1 week. Currently stable, admitted to the hospital for COVID-19 and continued management of UTI refractory to initial antibiotic treatment. Was started on Augmentin after UA 05/13 with pyuria, but culture at that time was polymicrobial. On admission continued to have pyuria on UA, SP tenderness and urinary symptoms (though perhaps more related to fecal impaction), culture has grown 100K malloy-sens Klebsiella -CT-KUB with no obstruction and no nephrolithiasis -symptoms resolved, afebrile -received 3 doses ceftriaxone, changed to cephalexin to complete total 7d course - end 06/07 (2) COVID-19: Plan: High risk was severely congested and mildly hypoxic so elected to treat with remdesivir x 5 days. completed 06/03. -significantly improved, no longer hypoxic since 06/01, COVID symptoms have resolved at this time -remains physically weaker than baseline, needs rehab -can remove isolation precautions 06/06 (3) Redness and swelling of forearm: Plan: 2/2 infiltrated IV at the site--mild erythema and warmth distal L forearm radial side prox to wrist. -xray ordered - no fracture -continue elevation, monitor, improved (4) Acute metabolic encephalopathy: Plan: Was present on admission - lethargic, confused - caused by acute respiratory failure related to COVID-19, UTI, fecal impaction--> improved overall, appears to be at baseline mental status -reviewed med list and stopped guaifenex, robitussin -continue HS melatonin -continue bowel regimen (5) Fecal impaction: Plan: Fecal impaction and stercoral proctitis seen on CT This relates to her persistent pelvic symptoms and can contribute to UTI -miralax and senna scheduled, now having daily stools - continue -needs ongoing bowel regimen after discharge, constipation can be prominent in PD (6) Parkinsons disease: Plan: continue Sinemet and primidone stable, at baseline (7) Depression: Plan: stable continue Paxil (8) Anxiety: Plan: continue Paxil (9) Esophageal reflux: Plan: stable continue PPI (10) Hypercholesteremia: Plan: stable Continue home rosuvastatin 20 mg Plan DVT ppx: enoxaparin 40 sq daily Dispo-I performed a peer to peer with insurance company physician who denied acute rehab. [facility] approved and [facility] has a bed for tomorrow. Can remove COVID isolation precautions Spent 35 min on this patient today including time spent discussing care with insurance company regarding disposition Admission and Anticipated Discharge Date Admission Date: May 29, 2023 Subjective Pt reports feeling fine, mild cough. Moving bowels, eating. Is OOB to chair Physical Exam Constitutional: WD/WN, vitals as above Respiratory: normal respiratory effort, lungs clear to auscultation Cardiovascular: RRR, no murmur, no edema Results & Data Results & Data Vital Signs (Past 12 Hours) Vital Signs Temp Pulse Resp BP Pulse Ox O2 Del Method 06/06/23 14:57 36.4 C L 70 16 132/75 95 Room Air 06/06/23 09:57 Room Air 06/06/23 08:01 37.1 C 61 16 151/72 H 93 Room Air Laboratory Results no labs PG Care Time/CCT Total # of Minutes Spent Total Time Spent with Patient: Total time spent is greater than 50% in coordination of care (as documented) at patient's floor/unit and/or counseling patient: Coding Level of Care Code 28719 SUB INP/OBS CARE 2/35MIN Diagnoses Complicated urinary tract infection N39.0 COVID-19 U07.1 Redness and swelling of forearm M79.89; R23.8 Acute metabolic encephalopathy G93.41 Fecal impaction K56.41 Parkinsons disease G20 Depression F32.9 Anxiety F41.9 Esophageal reflux K21.9 Hypercholesteremia E78.00
[2023-06-06] MEDS: FENOFIBRATE NANOCRYSTALLIZED 145 MG TABLET PO SCH (21:41)
[2023-06-06] MEDS: ROSUVASTATIN CALCIUM 20 MG TAB PO SCH (21:41)
[2023-06-06] MEDS: PARoxetine HCL 10 MG TAB PO SCH (21:41)
[2023-06-06] MEDS: ACETAMINOPHEN 325 MG TAB PO PRN (21:42)
[2023-06-07] MEDS: CARBIDOPA/LEVODOPA 25/100MG TAB PO SCH ×3 (08:15→16:19)
[2023-06-07] MEDS: ENOXAPARIN INJ 40 MG/0.4 ML SYR SQ SCH (08:15)
[2023-06-07] MEDS: ASPIRIN 81 MG ECTAB PO SCH (08:15)
[2023-06-07] MEDS: PANTOprazole 40 MG TAB PO SCH (08:16)
[2023-06-07] MEDS: MULTIVITAMIN TAB PO SCH (08:16)
[2023-06-07] MEDS: SENNA 8.6 MG TAB PO SCH (08:16)
[2023-06-07] MEDS: PRIMIDONE 50 MG TAB PO SCH ×2 (08:16→19:23)
[2023-06-07] MEDS: POLYETHYLENE (MIRALAX) 17 GM PACK PO SCH (08:35)
--- NOTE | 2023-06-07 17:23 | Hospitalist Progress Note ---
Date of Service June 07, 2023 Assessment & Plan (1) Complicated urinary tract infection: Plan: 82 F with PMH Parkinson's disease, anxiety/depression, esophageal reflux, hypercholesterolemia, and recent UTI managed in the outpatient setting, who presented to the ER with generalized malaise, progressive weakness x 1 week. Currently stable, admitted to the hospital for COVID-19 and continued management of UTI refractory to initial antibiotic treatment. Was started on Augmentin after UA 05/13 with pyuria, but culture at that time was polymicrobial. On admission continued to have pyuria on UA, SP tenderness and urinary symptoms (though perhaps more related to fecal impaction), culture has grown 100K malloy-sens Klebsiella -CT-KUB with no obstruction and no nephrolithiasis -symptoms resolved, afebrile -received 3 doses ceftriaxone, changed to cephalexin to complete total 7d course - end 06/07 (2) COVID-19: Plan: High risk was severely congested and mildly hypoxic so elected to treat with remdesivir x 5 days. completed 06/03. -significantly improved, no longer hypoxic since 06/01, COVID symptoms have resolved at this time except for very minimal residual cough and chest congestion -remains physically weaker than baseline, needs rehab -Removed from isolation precautions 06/06 (3) Redness and swelling of forearm: Plan: 2/2 infiltrated IV at the site--mild erythema and warmth distal L forearm radial side prox to wrist. Improving -xray ordered - no fracture -continue elevation, monitor, improved (4) Acute metabolic encephalopathy: Plan: Was present on admission - lethargic, confused - caused by acute respiratory failure related to COVID-19, UTI, fecal impaction--> improved overall, appears to be at baseline mental status -reviewed med list and stopped guaifenex, robitussin -continue HS melatonin -continue bowel regimen (5) Fecal impaction: Plan: Fecal impaction and stercoral proctitis seen on CT This relates to her persistent pelvic symptoms and can contribute to UTI -miralax and senna scheduled, now having loose stools-hold MiraLAX but continue senna -needs ongoing bowel regimen after discharge, constipation can be prominent in PD (6) Parkinsons disease: Plan: continue Sinemet and primidone for tremor stable, at baseline (7) Depression: Plan: stable continue Paxil (8) Anxiety: Plan: continue Paxil (9) Esophageal reflux: Plan: stable continue PPI (10) Hypercholesteremia: Plan: stable Continue home rosuvastatin 20 mg (11) CVA (cerebral infarction): 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 [facility] approved and [facility] has a bed for tomorrow. Discussed care with son at the bedside on 06/07 Admission and Anticipated Discharge Date Admission Date: May 29, 2023 Subjective Patient reports feeling better today, still has some congestion on the chest. Had some loose stools. I discussed her care with her son at the bedside. Discharge was canceled for today as the longterm did not have a bed Physical Exam Constitutional: WD/WN, vitals as above Respiratory: normal respiratory effort, lungs clear to auscultation Cardiovascular: RRR, no murmur, no edema Gastrointestinal (Abdomen): normal bowel sounds, soft, nontender, no hepatosplenomegaly Skin: + erythema (Mild of radial surface of di stal forearm on left) Neurologic: Resting tremor in the right hand Results & Data Results & Data Vital Signs (Past 12 Hours) Vital Signs Temp Pulse Resp BP Pulse Ox O2 Del Method 06/07/23 15:01 36.8 C 69 16 143/73 H 94 Room Air 06/07/23 07:35 36.4 C L 61 16 161/68 H 94 Room Air 06/07/23 07:35 Room Air PG Care Time/CCT Total # of Minutes Spent Total Time Spent with Patient: Total time spent is greater than 50% in coordination of care (as documented) at patient's floor/unit and/or counseling patient: Coding Level of Care Code 74946 SUB INP/OBS CARE 2/35MIN Diagnoses Complicated urinary tract infection N39.0 COVID-19 U07.1 Redness and swelling of forearm M79.89; R23.8 Acute metabolic encephalopathy G93.41 Fecal impaction K56.41 Parkinsons disease G20 Depression F32.9 Anxiety F41.9 Esophageal reflux K21.9 Hypercholesteremia E78.00 CVA (cerebral infarction) I63.9
[2023-06-07] MEDS: ROSUVASTATIN CALCIUM 20 MG TAB PO SCH (19:23)
[2023-06-07] MEDS: FENOFIBRATE NANOCRYSTALLIZED 145 MG TABLET PO SCH (19:23)
[2023-06-07] MEDS: PARoxetine HCL 10 MG TAB PO SCH (19:23)
[2023-06-08] MEDS: PRIMIDONE 50 MG TAB PO SCH (09:01)
[2023-06-08] MEDS: ASPIRIN 81 MG ECTAB PO SCH (09:02)
[2023-06-08] MEDS: ENOXAPARIN INJ 40 MG/0.4 ML SYR SQ SCH (09:02)
[2023-06-08] MEDS: MULTIVITAMIN TAB PO SCH (09:02)
[2023-06-08] MEDS: PANTOprazole 40 MG TAB PO SCH (09:02)
[2023-06-08] MEDS: CARBIDOPA/LEVODOPA 25/100MG TAB PO SCH ×2 (09:02→12:18)
[2023-06-08] MEDS: POLYETHYLENE (MIRALAX) 17 GM PACK PO SCH (09:08)
--- NOTE | 2023-06-08 12:36 | Discharge Summary ---
Discharge Summary Date of Service June 08, 2023 Notes For Next Care Provider Medication Changes From Visit Added Miralax 17 grams po daily Admission HPI Per Admitting Provider Nia is an 82-year-old woman with a past medical history of Parkinson's disease, anxiety/depression, esophageal reflux, and bladder hyperactivity, who presented to the emergency room from an assisted living center after progressive weakness and generalized malaise x 1 week. Specifically, she reports sore throat, fever, productive cough, nasal/chest congestion, and nausea. Per daughter, who is present at bedside, patient's symptoms started around of last week with weakness. By Monday, aforementioned URI symptoms were also present and she was subsequently tested for COVID-19, which was negative. Patient was recently diagnosed outpatient with UTI (05/13/2023) and was prescribed Augmentin 875 mg twice daily x 7 days. Today, patient notes she continues to have some of her presenting UTI symptoms (malodorous urine, urinary frequency) after completing antibiotics course. In the emergency room patient was afebrile rest of vitals were stable/wnl. Notable labs include: Phosphorus-2.3, and respiratory viral panel positive for COVID-19. WBC was normal, and BMP showed no significant metabolic derangements. CXR was also negative for acute inflammation/infection. She received a dose of IV Tylenol 1000 mg and a 1 L bolus of NS. Hospitalist service was then consulted for admission. On admission, patient fatigue and weakness. She had yet to provide urine sample for urinalysis (UA subsequently revealed 1+ hematuria, positive nitrites, positive leukocyte esterase, and 4+ bacteriuria) but denies suprapubic abdominal pain or flank pain. Principal Dx & Hospital Course #1 = Principal Diagnosis (1) Complicated urinary tract infection: 82 F with PMH Parkinson's disease, anxiety/depression, esophageal reflux, hypercholesterolemia, and recent UTI managed in the outpatient setting, who presented to the ER with generalized malaise, progressive weakness x 1 week. Currently stable, admitted to the hospital for COVID-19 and continued management of UTI refractory to initial antibiotic treatment. Was started on Augmentin after UA 05/13 with pyuria, but culture at that time was polymicrobial. On admission continued to have pyuria on UA, SP tenderness and urinary symptoms (though perhaps more related to fecal impaction), culture has grown 100K malloy-sens Klebsiella -CT-KUB with no obstruction and no nephrolithiasis -symptoms resolved, afebrile -received 3 doses ceftriaxone, changed to cephalexin to complete total 7d course - ended 06/07 (2) COVID-19: High risk was severely congested and mildly hypoxic so elected to treat with remdesivir x 5 days. completed 06/03. -significantly improved, no longer hypoxic since 06/01, COVID symptoms have resolved at this time except for very minimal residual cough and chest congestion -remains physically weaker than baseline, needs rehab -Removed from isolation precautions 06/06 (3) Redness and swelling of forearm: 2/2 infiltrated IV at the site--mild erythema and warmth distal L forearm radial side prox to wrist. Improving -xray ordered - no fracture -continue elevation, monitor, improved (4) Acute metabolic encephalopathy: Was present on admission - lethargic, confused - caused by acute respiratory failure related to COVID-19, UTI, fecal impaction--> improved overall, appears to be at baseline mental status -continue HS melatonin -continue bowel regimen (5) Fecal impaction: Fecal impaction and stercoral proctitis seen on CT This relates to her persistent pelvic symptoms and can contribute to UTI -miralax and senna scheduled, now having loose stools-stopped senna, but continue Miralax -needs ongoing bowel regimen after discharge, constipation can be prominent in PD (6) Parkinsons disease: continue Sinemet and primidone for tremor stable, at baseline (7) Depression: stable continue Paxil (8) Anxiety: continue Paxil (9) Esophageal reflux: stable continue PPI (10) Hypercholesteremia: stable Continue home rosuvastatin 20 mg (11) CVA (cerebral infarction): 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, with residual left hand deficits Continue rosuvastatin, aspirin Plan DVT ppx: enoxaparin 40 sq daily Dispo-dc to [facility] today Discharge Exam Constitutional WD/WN, vitals as above Respiratory normal respiratory effort, lungs clear to auscultation Cardiovascular RRR, no murmur, no edema Gastrointestinal (Abdomen) normal bowel sounds, soft, nontender, no hepatosplenomegaly Skin + erythema (Mild of radial surface of distal forearm on left) Updated Medication List Medication Instructions Recorded Confirmed Type aspirin 81 mg tablet,delayed 81 mg PO DAILY 01/17/19 05/29/23 History release primidone 50 mg tablet 50 mg PO BID #180 tabs 09/30/22 05/29/23 Rx carbidopa 25 mg-levodopa 100 mg 1.5 tab PO TID 90 days #405 tabs 12/16/22 05/29/23 Rx tablet (Sinemet) cough drops See Rx Instructions .Route 04/12/23 05/29/23 Rx .COMPLEX #90 tabs acetaminophen 325 mg capsule 325 - 650 mg PO Q4H PRN fever or 05/29/23 05/29/23 History cold symptoms calcium carbonate 500 mg calcium 500 mg PO QID PRN Gi Upset 05/29/23 05/29/23 History (1,250 mg) chewable tablet fenofibrate nanocrystallized 145 145 mg PO QPM 05/29/23 05/29/23 History mg tablet guaifenesin 200 mg tablet 200 - 400 mg PO Q4H PRN Congestion 05/29/23 05/29/23 History ibuprofen 200 mg capsule (Motrin 400 mg PO .Q4-6H PRN Pain 05/29/23 05/29/23 History IB) ibuprofen 200 mg tablet 400 mg PO .Q4-6H PRN pain 05/29/23 05/29/23 History multivitamin 1 tab PO QAM 05/29/23 05/29/23 History pantoprazole 40 mg tablet,delayed 40 mg PO QAM 05/29/23 05/29/23 History release paroxetine HCl 30 mg tablet 30 mg PO QPM 05/29/23 05/29/23 History rosuvastatin 20 mg tablet 20 mg PO QPM 05/29/23 05/29/23 History polyethylene glycol 3350 17 gram 17 g PO DAILY #30 ea 06/08/23 Rx oral powder packet (Miralax) Hospital Stay Data Consultations 05/29/23 21:54 ED Decision to Admit Stat Diagnostic Imagining Performed 05/30/23 08:48 CT Abd and Pelvis [CT abd pelvis wo con] Urgent Pending Results Patient Have Any Pending Studies at Discharge: No Discharge Instructions Given to Patient (Per Discharging Provider) You completed a course of antivirals and antibiotics for your COVID-19 and UTI. Your confusion improved and you are weak, requiring rehab for strengthening. Please continue on a bowel regimen to prevent future constipation. Total Time Total Time Spent Total Time Spent (In Minutes): 35 min Coding Level of Care Code 65391 INP/OBS DISCH >30 MIN Diagnoses Complicated urinary tract infection N39.0 COVID-19 U07.1 Redness and swelling of forearm M79.89; R23.8 Acute metabolic encephalopathy G93.41 Fecal impaction K56.41 Parkinsons disease G20 Depression F32.9 Anxiety F41.9 Esophageal reflux K21.9 Hypercholesteremia E78.00 CVA (cerebral infarction) I63.9
== END 2023-06-08 14:12 | DRG 177 ==
LOC: ED 18:55 → SUATTDRO 23:43 → EDINP 23:43 → 2N 06-01 00:29 → 3E 06-07 18:08

== ENCOUNTER 2023-09-23 09:49 | Inpatient (IN) ==
[2023-09-23] MEDS: MIDAZOLAM HCL 5 MG/ML 1 ML VIAL IV STA (10:04)
[2023-09-23] MEDS ORDERED: EPINEPHrine/NSS 4 MG/254 ML BAG IV SCH (10:15)
[2023-09-23 10:16] LABS: iSTAT Creatinine 0.9 mg/dl (0.6-1.3); iSTAT Hemoglobin 12.2 g/dl (12.0-16.0); iSTAT Ionized Calcium 1.57 mmol/l (1.12-1.32)
[2023-09-23] MEDS: fentaNYL citrate PF 100 MCG/2 ML VIAL IV STA (10:23)
[2023-09-23] MEDS: MIDAZOLAM HCL 1 MG/ML 2ML VIAL IV STA (10:31)
[2023-09-23 10:33] LABS: Hematocrit (blood only) 40.1 % (37.0-47.0); Hemoglobin 12.1 g/dl (12.0-16.0); INR 1.2 (0.9-1.1); Mean Corpuscular Hemoglobin 30.4 pg (25.0-34.0); Mean Corpuscular Hgb Conc 30.2 g/dL (32.0-36.0); Mean Corpuscular Volume 100.8 fL (80.0-100.0); Mean Platelet Volume 11.8 fL (9.4-12.4); Nucleated RBC # (auto) 0.04 K/uL (0.00-0.12); Nucleated RBC % (auto) 0.2 %; Partial Thromboplastin Time 54 Seconds (21-31); Platelet Count 148 K/uL (130-400); RDW Coefficient of Variation 13.1 % (11.5-14.5); RDW Standard Deviation 48.6 fL (36.4-46.3); Red Blood Count 3.98 M/uL (4.20-5.40)
[2023-09-23] MEDS: MIDAZOLAM HCL 125 MG/250 ML BAG IV PRN (10:34)
[2023-09-23] MEDS: fentaNYL citrate PF 100 MCG/2 ML VIAL ONE (10:37)
[2023-09-23] MEDS: MIDAZOLAM HCL 5 MG/ML 2ML VIAL ONE (10:37)
[2023-09-23] MEDS: SODIUM CHLORIDE 0.9% 500 ML IV SCH (10:43)
[2023-09-23] MEDS: MIDAZOLAM BOLUS FROM BAG IV PRN (10:45)
[2023-09-23 10:47] LABS: Alanine Aminotransferase 72 U/L (7-52); Albumin Globulin Ratio 1.6 (0.9-2); Albumin Level 3.3 gm/dl (3.4-5.0); Alkaline Phosphatase 48 U/L (34-104); Anion Gap 14 (3-11); Aspartate Aminotransferase 416 U/L (13-39); BUN Creatinine Ratio 18.8 (10-20); Bilirubin,Total 0.5 mg/dl (0.2-1.0); Blood Urea Nitrogen 18 mg/dl (6-23); Calcium 8.8 mg/dl (8.6-10.3); Carbon Dioxide 19 mmol/L (21-32); Chloride 108 mmol/L (98-107); Creatine Kinase 98 U/L (26-192); Est GFR (African American) 64.3 ml/min; Est GFR (Non-African American) 55.5 ml/min; Globulin 2.1 gm/dl (2.5-4.0); Glucose 151 mg/dl (70-99(Fasting)); Lipase 95 U/L (11-82); Magnesium 2.3 mg/dl (1.7-2.4); Potassium 3.9 mmol/L (3.5-5.1); Sodium 141 mmol/L (136-145); Total Protein 5.4 gm/dl (6.0-8.3)
[2023-09-23] MEDS: fentaNYL citrate 2,500 MCG/250 ML BAG IV SCH (10:47)
[2023-09-23] MEDS: fentaNYL BOLUS from BAG IV PRN (10:51)
[2023-09-23 10:52] LABS: Basophils % (auto) 0.5 %; Eosinophils # (auto) 0.52 K/uL (0.00-0.50); Eosinophils % (auto) 2.8 %; Immature Granulocytes # (auto) 1.19 K/uL (0.01-0.20); Immature Granulocytes % (auto) 6.4 %; Lymphocytes # (auto) 8.89 K/uL (1.20-3.40); Lymphocytes % (auto) 47.5 %; Monocytes # (auto) 0.65 K/uL (0.11-0.59); Monocytes % (auto) 3.5 %; Neutrophils # (auto) 7.35 K/uL (1.40-6.50); Neutrophils % (auto) 39.3 %; Toxic Vacuolation 1+
[2023-09-23 11:00] LABS: iSTAT Arterial Blood Gas HCO3 17 meg/L (19-24); iSTAT Arterial Blood Gas pCO2 56 mmHg (35-46); iSTAT Arterial Blood Gas pH 7.09 (7.35-7.45); iSTAT Arterial Blood Gas pO2 > 420 mmHg (80-95); iSTAT Carbon Dioxide 19 mmol/L (24-31); iSTAT Hematocrit 26 % (37-47); iSTAT Hemoglobin 8.8 g/dl (12.0-16.0); iSTAT Potassium 3.4 mmol/L (3.3-5.0); iSTAT Sodium 143 mmol/L (135-144)
[2023-09-23] MEDS: EPINEPHrine/NSS 4 MG/254 ML BAG IV SCH (11:06)
[2023-09-23 11:12] LABS: Appearance Urine Cloudy (Clear); Bacteria Urine Automated 4+ (None Seen); Bilirubin Urine Negative (Negative); Blood Urine Negative (Negative); Cast Urine Automated 0-2 /lpf (0-2); Color Urine Dark Yellow; Epithelial Cell Urine Auto 0-2 /hpf (0-2); Glucose Urine UA Negative (Negative); Ketones Urine Trace (Negative); Leukocyte Esterase Urine 3+ (Negative); Nitrite Urine Negative (Negative); Protein Urine 1+ (Negative); RBC Urine Automated 0-2 /hpf (0-2); Specific Gravity Urine 1.022 (1.000-1.030); Urobilinogen Urine Negative (Negative); WBC Urine Automated >50 /hpf (0-5); pH Urine 6.5 (4.5-7.5)
--- NOTE | 2023-09-23 11:14 | History & Physical Report ---
Date of Service September 23, 2023 Assessment & Plan (1) Cardiac arrest with successful resuscitation: Plan: -Admit to the ICU on the Ventilator at this time -Patient presented to the ED as a code blue after a sudden episode of SOB and collapse at her assisted living facility -CPR was initiated at her living facility, reportedly the defibrillator did not recommend shocking after 2 sets of CPR -ROSC was obtained by EMS after administration of Epinephrine, patient was int ubated in the field prior to arrival -Unclear etiology at this time but the patient does appear to have a UTI with elevated WBC of 18, it's possible she was septic leading to Cardiac arrest -CT of the head/brain was read as negative for acute findings -Spoke with Mechanical Artist, they will order stat CTA of the chest with PE protocol and CT of the abd/pelvis w/IV con for further evaluation -Placed stat cardiology consult and spoke with Cardiology, appreciate their help, they will evaluate the patient shortly -Temperature is currently at 35C on cooling blanket, will hold further cooling at this time as we want her to be euthermic -Will give 2 bags of 10 meq IV KCL now as potassium is 3.9 on arrival >Keep K+ at or above and mag at or above 2.3 -Will continue Fentanyl, Versed, and Epinephrine drips for now >Will defer to ICU for further management -Will give a dose of Zosyn now along with a second liter of NSS for possible sepsis -Patient made a DNR/DNI after discussions between family and ED staff, will wait to terminally extubate for now until other family members arrive -Will defer DVT PPX to the ICU at this time -AM CBC, CMP, mag, PT/INR (2) Ventilator dependence: Plan: -Currently stable on the ventilator with respiratory rate set to 24 and FiO2 of 70% -Continue ventilator management per respiratory therapy and ICU staff (3) High anion gap metabolic acidosis: Plan: -Noted to have an AG of 14 with bicarb of 19 -ABG pH of 7.09 with pCO2 of 56 and pO2 of 420 -Lactate is 10.7 -Likely being driven by her infection,dehydration, and elevated lactate after multiple rounds of CPR -S/P (4) Elevated LFTs: Plan: -ALT of 72, AST of 416 -Other LFT's are WNL -Alcohol level negative, added on Tylenol level -Could be due to recent cardiac arrest, sepsis, or other unknown etiology at this time -Follow CT of the abd/pelvis w/IV con (5) Leukocytosis: Plan: -Unclear at this time if from CPR of possibly sepsis with UTI noted on admission -Will obtain urine/blood cultures -Given a dose of Zosyn on admission, will continue with zosyn for now -Given 1L NSS in the ED, will give another 1L NSS now to cover her sepsis fluid bolus (6) UTI (urinary tract infection): Plan: -UA consistent with UTI today -Hx of Klebsiella UTI in the past -Continue with Zosyn for now -Follow urine/blood cultures (7) Sepsis: Plan: -Most likely source at this time is her UTI, but can't rule out other sources at this time -Will be receiving Plan The patient was discussed with Dr. 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 The patient was intubated by EMS prior to arrival. Per EMS staff the patient was reportedly in her normal state of health this am. Shortly after breakfast she was walking [place] her assisted living facility and had a sudden onset of SOB and fell to the ground. She went unresponsive. CPR was initiated at her facility and there were no shocks advised. EMS was able to obtain ROSC after administering Epinephrine. On arrival to the ED she was noted to be tachycardic with a HR of 101, respirations of 25, initial BP of 95/56, temperature of 35C, and SpO2 of 100% on the ventilator. Labs were significant for a leukocytosis of 18, lactate of 10.7, INR of 1.2, ionized calcium of 1.57, AG of 14 with bicarb of 19, ALT of 72, AST of 416, potassium of 3.9, mag of 2.3, ABG with a pH of 7.09, pCO2 of 56, pO2 of 420, initial high sen trop of 407, BNP and CK WNL, lipase of 95, TSH of 10 with free T4 of 0.83, UA with consistent with UTI, negative alcohol level, and urine toxicology screen in process. CT of the head/brain wo con was read as negative for acute findings. After discussions between the ED staff and family the patient was made a DNR/DNI prior to admission but the family was not ready for terminal extubation as more family were on their way to the Hospital but were approximately 3 hours away. Prior to admission the patient was given 1L NSS and was started on epinephrine and fentanyl drips. Patient is intubated and sedated at the time of the exam. She is currently having intermittent jerking of the BL upper extremities and appears to be fighting the ET tube, will adjust sedation. I spoke with family who confirm that the patient is a DNR/DNI, they are still waiting for the last sibling to arrive to make other decisions moving forward. Please refer to Dr. Fiore's attention for any changes to the treatment plan Allergies Allergy/AdvReac Type Severity Reaction Status Date / Time sertraline Allergy Intermediate itchy Verified 08/22/23 14:09 atorvastatin Allergy Unknown Unknown Verified 08/22/23 14:09 simvastatin Allergy Unknown Unknown Verified 08/22/23 14:09 Sulfa (Sulfonamide Allergy Unknown RASH Verified 08/22/23 14:09 Antibiotics) Home Medications Medication Instructions Recorded Confirmed Type aspirin 81 mg tablet,delayed 81 mg PO DAILY 01/17/19 09/23/23 History release primidone 50 mg tablet 50 mg PO BID #180 tabs 09/30/22 09/23/23 Rx carbidopa 25 mg-levodopa 100 mg 1.5 tab PO TID 90 days #405 tabs 12/16/22 09/23/23 Rx tablet (Sinemet) cough drops See Rx Instructions .Route 04/12/23 09/23/23 Rx .COMPLEX #90 tabs acetaminophen 325 mg capsule 325 - 650 mg PO Q4H PRN fever or 05/29/23 09/23/23 History cold symptoms fenofibrate nanocrystallized 145 145 mg PO QPM 05/29/23 09/23/23 History mg tablet guaifenesin 200 mg tablet 200 - 400 mg PO Q4H PRN Congestion 05/29/23 09/23/23 History ibuprofen 200 mg tablet 400 mg PO .Q4-6H PRN pain 05/29/23 09/23/23 History multivitamin 1 tab PO QAM 05/29/23 09/23/23 History pantoprazole 40 mg tablet,delayed 40 mg PO QAM 05/29/23 09/23/23 History release rosuvastatin 20 mg tablet 20 mg PO QPM 05/29/23 09/23/23 History Wheelchair (Manual) (Manual #1 ea 06/27/23 08/22/23 Rx Wheelchair) paroxetine HCl 30 mg tablet 30 mg PO QPM #90 tabs 06/27/23 09/23/23 Rx polyethylene glycol 3350 17 gram 17 g PO PRN #100 ea 07/06/23 09/23/23 Rx oral powder packet (Miralax) nystatin 100,000 unit/gram topical 1 applic topical TID #60 grams 08/22/23 09/23/23 Rx powder Past Med/Surg History Medical History (Updated 09/23/23 @ 15:41 by Naima Finch MD) Counseling regarding end of life decision making Pulmonary emboli IVC thrombosis Multiple fractures of ribs, bilateral, initial encounter for closed fracture Left lower lobe pneumonia Myoclonic jerking Anoxic brain injury COVID-19 Fall Anxiety H/O esophageal reflux Hyperactivity of bladder Lice infested hair Menopause Sciatica of left side Seborrheic dermatitis Tracheoesophageal fistula, esophageal atresia and stenosis, congenital Depression Surgical History History of esophagogastroduodenoscopy (EGD) Family History Mother Myocardial infarction Father Myocardial infarction Sister Myocardial infarction Brother No problems noted. Son Prostate cancer Other Cancer Coronary heart disease Denies family history of Ovarian cancer Breast cancer Colorectal cancer Social History Smoking Status: Unknown if ever smoked Tobacco Type: Cigarettes Age Started Using Tobacco: 22; Age Quit Using Tobacco: 42; packs per day: 1; Cigarettes Per Day: 20; Second Hand Exposure: No; Do You Dip or Chew Tobacco: No; Hx Alcohol Use: No Hx Substance Use: No Preferred Language: Palestinian Communication Ability: Unable Visual Impairment: No Limitations Hearing Ability: Normal Cast Iron Drain Pipe Layer Required: No Beliefs That Will Affect Care: None marital status: / Current Living Situation: Personal Care Facility Current Living Situation Comment: [facility] current occupational status: retired current occupation: retired from career as retail administrative assistant with [employer] Feels Safe at Home: Yes Childhood Exposure to Second-Hand Smoke: Yes Diet: regular caffeine: Yes Dental Care, Regularly: Yes Physical Activity Frequency: 3-4 Times per Week Physical Activity Frequency Comment: walking short distances Seatbelt Use: always Sunscreen Use: No Assistive Devices: Glasses, Walker and Wheelchair Physical Exam Physical Exam: Physical Exam: General: Patient is currently intubated with frequent jerking of the upper extremities and possible gagging HEENT: Normocephalic, atraumatic, no scleral icterus, pupils around round, symmetrical, both pupils are reacting to light, ET tube is in place, no secretions noted in the oropharynx Chest/Pulm: Currently stable on Ventilator with clear breath sounds throughout Cardiac: tachycardic rate. regular rhythm, no murmurs noted Abdomen: Negative for ascites and bruising, normoactive bowel sounds, soft, patient does not appear to guard on palpation of the abdomen : Maurice catheter is in place and currently draining a small amount of cloudy, yellow urine Musculoskeletal: Patient currently with flexion of the BL wrists/posturing, intermittent jerking of the BL upper extremities, no acute trauma on exam Extremities: Radial, dorsalis pedis, and posterior tibial pulses are intact and symmetrical, no edema noted in the BL LE's Skin: Warm, dry, no rashes , lesions, or scars noted Neuro: Alert and oriented to person, place, month, year, and president, no focal defects, CN II-XII tested and intact, finger to nose test negative, no tremors noted Psych: Currently sedated for intubation Results & Data Results & Data Vital Signs (Past 12 Hours) Vital Signs Pulse Resp Pulse Ox FiO2 09/23/23 10:50 24 70 09/23/23 10:05 133 H 09/23/23 10:05 101 H 25 H 100 100 Laboratory Results Abnormal lab results 09/23/23 09/23/23 09/23/23 Range/Units 10:01 10:02 10:04 WBC 18.70 H (4.8-10.8) K/ul RBC 3.98 L (4.20-5.40) M/uL POC Hgb (12.0-16.0) g/dl POC Hct 36 L (37-47) % MCV 100.8 H (80.0-100.0) fL MCHC 30.2 L (32.0-36.0) g/dL RDW Std Deviation 48.6 H (36.4-46.3) fL Neut # (Auto) 7.35 H (1.40-6.50) K/uL Lymph # (Auto) 8.89 H (1.20-3.40) K/uL Donley # (Auto) 0.65 H (0.11-0.59) K/uL Eos # (Auto) 0.52 H (0.00-0.50) K/uL Immature Gran # (Auto) 1.19 H (0.01-0.20) K/uL PT 13.0 H (9.0-12.0) Seconds INR 1.2 H (0.9-1.1) APTT 54 H (21-31) Seconds POC pH (7.35-7.45) POC pCO2 (35-46) mmHg POC pO2 (80-95) mmHg POC HCO3 (19-24) kimmy/L POC Base Excess (-9-1.8) kimmy/L POC ABG O2 Sat (90-95) % Chloride 108 H (98-107) mmol/L Carbon Dioxide 19 L (21-32) mmol/L POC Total CO2 21 L (24-31) mmol/L Anion Gap 14 H (3-11) POC Anion Gap 15.0 L (16-25) mmol/L POC BUN 19 H (7-18) mg/dl Glucose 151 H (70-99(Fasting)) mg/dl POC Glucose (other) 140 H (70-99) mg/dl Lactate 10.7 H* (0.4-2.0) mmol/L POC Ioniz Calcium Ayanna 1.57 H (1.12-1.32) mmol/l AST 416 H (13-39) U/L ALT 72 H (7-52) U/L Troponin I High Sens 407.5 H* (0-14) pg/ml Total Protein 5.4 L (6.0-8.3) gm/dl Albumin 3.3 L (3.4-5.0) gm/dl Globulin 2.1 L (2.5-4.0) gm/dl Lipase 95 H (11-82) U/L TSH 10.230 H (0.300-4.500) uIu/ml Urine Appearance (Clear) Urine Protein (Negative) Urine Ketones (Negative) Ur Leukocyte Esterase (Negative) Urine WBC (Auto) (0-5) /hpf Urine Bacteria (Auto) (None Seen) 09/23/23 09/23/23 Range/Units 10:44 Unknown WBC (4.8-10.8) K/ul RBC (4.20-5.40) M/uL POC Hgb 8.8 L (12.0-16.0) g/dl POC Hct 26 L (37-47) % MCV (80.0-100.0) fL MCHC (32.0-36.0) g/dL RDW Std Deviation (36.4-46.3) fL Neut # (Auto) (1.40-6.50) K/uL Lymph # (Auto) (1.20-3.40) K/uL Donley # (Auto) (0.11-0.59) K/uL Eos # (Auto) (0.00-0.50) K/uL Immature Gran # (Auto) (0.01-0.20) K/uL PT (9.0-12.0) Seconds INR (0.9-1.1) APTT (21-31) Seconds POC pH 7.09 L* (7.35-7.45) POC pCO2 56 H (35-46) mmHg POC pO2 > 420 H (80-95) mmHg POC HCO3 17 L (19-24) kimmy/L POC Base Excess -13.0 L (-9-1.8) kimmy/L POC ABG O2 Sat 100.0 H (90-95) % Chloride (98-107) mmol/L Carbon Dioxide (21-32) mmol/L POC Total CO2 19 L (24-31) mmol/L Anion Gap (3-11) POC Anion Gap (16-25) mmol/L POC BUN (7-18) mg/dl Glucose (70-99(Fasting)) mg/dl POC Glucose (other) (70-99) mg/dl Lactate (0.4-2.0) mmol/L POC Ioniz Calcium Ayanna (1.12-1.32) mmol/l AST (13-39) U/L ALT (7-52) U/L Troponin I High Sens (0-14) pg/ml Total Protein (6.0-8.3) gm/dl Albumin (3.4-5.0) gm/dl Globulin (2.5-4.0) gm/dl Lipase (11-82) U/L TSH (0.300-4.500) uIu/ml Urine Appearance Cloudy A (Clear) Urine Protein 1+ H (Negative) Urine Ketones Trace H (Negative) Ur Leukocyte Esterase 3+ H (Negative) Urine WBC (Auto) >50 H (0-5) /hpf Urine Bacteria (Auto) 4+ H (None Seen) ECG Additional Comments: Sinus tachycardia with Premature atrial complexes Non-specific intra-ventricular conduction block T wave abnormality, consider anterolateral ischemia Abnormal ECG When compared with ECG of 29-MAY-2023 19:50, Significant changes have occurred Code Status & VTE Plan Code Status DNR/DNI Critical Care Time Critical Care Time: Yes I spent approximately 20 minutes of Critical Care time during the admission of this patient Supervising Physician Co-Signing Physician Notes I personally saw and examined the patient. I verified all manzano points and agree with Sonny Ortiz PA-C with the following exceptions and/or additions: 83 year old female presents to the ER s/p cardiac arrest. Unable to get any history from the patient due to unresponsive state O/E Intubated and sedated, HS increased rate, regular rhythm, no murmur, bilateral chest movement, rhonchi b/l, Abdo soft A/P Cardiac arrest - admit to ICU, intubated and sedated, discussed case with form designer, myoclonic jerking concerning for hypoxic brain injury, CT C/A/P pending, family now considering comfort care measures which given her overall prognosis appears reasonable - will defer ongoing discussions to ICU team PG Care Time/CCT Total # of Minutes Spent Total Time Spent with Patient: Total time spent is greater than 50% in coordination of care (as documented) at patient's floor/unit and/or counseling patient: Critical Care Time: Yes [place]oding [place] [address] INT INP/OBS CARE 3/75MIN Patient Type Established Medical Decision Making High Complexity Diagnoses Cardiac arrest with successful resuscitation I46.9 Ventilator dependence Z99.11 High anion gap metabolic acidosis E87.29 Elevated LFTs R79.89 Leukocytosis D72.829 UTI (urinary tract infection) N39.0 Sepsis A41.9 Additional Codes Critical Care Time - Critical Care Time: Yes ([id number])
[2023-09-23 11:34] LABS: Troponin I High Sensitivity 407.5 pg/ml (0-14)
[2023-09-23 11:37] LABS: T4 Free Thyroxine 0.83 ng/dl (0.61-1.60)
--- NOTE | 2023-09-23 11:50 | CT Scan Report ---
CT SCAN OF THE BRAIN WITHOUT IV CONTRAST CLINICAL HISTORY: Cardiac arrest. Change in mental status. COMPARISON STUDY: CT of the brain dated 01/29/2023. TECHNIQUE: Unenhanced axial CT scan of the brain is performed from the vertex to the skull base. A do se lowering technique was utilized adhering to the principles of ALARA. CT DOSE: 657.02 mGy.cm FINDINGS: An endotracheal tube is noted on the [employer] tomogram. Brain parenchyma: High right frontoparietal encephalomalacia is unchanged and consistent with a remot e insult. There is age-related involutional change noting advanced confluent subcortical and perivent ricular microangiopathic disease. There is no hemorrhage, mass effect, or evidence of acute territori al ischemia by CT criteria. Leonard-white matter differentiation is preserved. No extra-axial fluid christina ection is seen. Ventricles, sulci, cisterns: Prominent secondary to involutional change. Intracranial vasculature: There is atherosclerotic calcification of the cavernous carotid arteries. Calvarium: Unremarkable. Sinuses and mastoids: There is evidence of previous paranasal sinus surgery. The visualized paranasal sinuses are clear. The mastoid air cells are well pneumatized. Orbits: The bony orbits are grossly intact. IMPRESSION: There is no hemorrhage, mass effect, or evidence of acute territorial ischemia by CT eliza seth. ACT 112: Negative or not required by law. Electronically signed by: Zhen Wyatt M.D. 09/23/2023 11:47 AM
[2023-09-23 11:56] LABS: Amphetamines+Metham, Urine Neg (Neg); Barbiturates, Urine Pos (Neg); Benzodiazepine, Urine Neg (Neg); Cocaine, Urine Neg (Neg); MDMA (Ecstacy), Urine Neg (Neg); Marijuana, Urine Neg (Neg); Methadone, Urine Neg (Neg); Opiate, Urine Neg (Neg); Phencyclidine, Urine Neg (Neg)
[2023-09-23] MEDS: SODIUM CHLORIDE 0.9% 1,000 ML IV ONE (12:00)
[2023-09-23] MEDS: PIPERACILLIN/TAZOBACTAM 4.5 GM/100 ML BAG IV ONE (12:11)
[2023-09-23] MEDS: POTASSIUM CHLORIDE / WTR 10 MEQ/100 ML PLCT IV SCH (12:16)
--- NOTE | 2023-09-23 12:56 | XRay Report ---
SINGLE VIEW CHEST CLINICAL HISTORY: Atypical chest pain. Cardiac arrest. Intubation. FINDINGS: An AP, portable, supine chest radiograph is compared to study dated 05/29/2023 and correlated with chest CT dated 10/13/2014. The examination is degraded by portable technique and patient rotatio n. An endotracheal tube has been placed. The tip projects approximately 3.5 cm above the ravin The heart is enlarged noting atherosclerotic calcification of the thoracic aorta. There is pulmonary vasc ular congestion. There are asymmetric airspace opacities at left lung base. No pneumothorax is seen. The skeletal structures are osteopenic. The bony thorax is grossly intact. IMPRESSION: 1. An endotracheal tube has been placed as above. 2. Cardiomegaly with pulmonary vascular congestion. 3. There are asymmetric airspace opacities at the left lung base. This could represent a layering ple ural effusion. Correlate clinically for evidence of pneumonia/aspiration pneumonitis. Radiographic fo llow-up to resolution is recommended. ACT 112: Negative or not required by law. Electronically signed by: Zhen Wyatt M.D. 09/23/2023 12:55 PM
[2023-09-23] MEDS: OPTIRAY 320 125ml IV ONE (13:00)
[2023-09-23] MEDS ORDERED: LORazepam 0.5 MG in SYRINGE 0.25 ML IV PRN (13:21)
[2023-09-23] MEDS ORDERED: STAT IV Infusion **Titration per Protocol STA (13:21)
[2023-09-23] MEDS ORDERED: LORazepam 0.5 MG TAB PO PRN (13:21)
[2023-09-23] MEDS ORDERED: MoRPHine BOLUS from BAG IV PRN (13:21)
[2023-09-23] MEDS ORDERED: ONDANSETRON INJ 2 MG/ML 2 ML VIAL IV PRN (13:21)
[2023-09-23] MEDS ORDERED: ONDANSETRON 4 MG OD TAB SL PRN (13:21)
[2023-09-23] MEDS ORDERED: MoRPHine SULF/NSS 100 MG/100 ML BAG IV SCH (13:30)
--- NOTE | 2023-09-23 13:42 | Emergency Department Note ---
Impression & Plan Cardiac arrest ED Provider Note CHIEF COMPLAINT: Cardiac arrest HISTORY OF PRESENT ILLNESS: This 83-year-old female presents emergency department status postcardiac arrest. The patient was at her nursing facility, was witnessed to have fallen after breakfast. She then became suddenly short of breath and lost consciousness. An AED was applied to the patient's chest by nursing staff however no shock was advised. CPR was initiated. ALS was called. Patient was given IV epinephrine x 2 with return of a rhythm, but not a pulse. Patient is a full code in the [employer] was able to intubate her. CPR was continued. A pulse did return just prior to arrival at the hospital. REVIEW OF SYSTEMS: Unable to obtain secondary to the patient's mental status. ALLERGIES: see below MEDICATIONS: see below PMH: see below SOCIAL HISTORY: see below DDx: Acute coronary syndrome, cardiac arrhythmia, PE, aortic dissection, electrolyte abnormality, among others. PHYSICAL EXAM: Vital signs reviewed. General: Elderly, chronically ill-appearing 83-year-old female, intubated HEENT: No scleral icterus, pupils are 3 to 4 mm and sluggish bilaterally, equal, neck supple. Atraumatic. Cardiovascular: Tachycardic but regular, occasional ectopy. Distant heart tones Pulmonary: Clear to auscultation bilaterally, Intubated, but equal bilaterally. Abdomen: Soft, nontender, nondistended, positive bowel sounds. Musculoskeletal: Atraumatic, no peripheral edema. Neurologic: Patient unresponsive. Skin: Warm, dry, no rash EMERGENCY DEPARTMENT COURSE/MDM: This patient was evaluated and appeared to be in critical condition, was intubated in the field. Олег machine was in place but not being utilized currently as a pulse had been recovered. IV access was obtained and laboratory work was drawn. Patient very quickly lost a pulse. IV epi bolus was given in addition to IV calcium gluconate and bicarb. Ultrasound was placed on the chest and faint cardiac motion was identified. Compressions were initiated once again to support cardiac movement. Patient was started on an epi drip. Patient was hydrated with normal saline solution. Additional peripheral lines were established. The patient required IV Versed and fentanyl for sedation. Initially boluses were given and then the drip was ordered of each medication. Chest x-ray was performed and reveals the ET tube in good position, there is concern over left lower lung consolidation. A Maurice catheter was placed and urinalysis is pending. Head CT was ordered and reveals no evidence of acute intracranial process. EKG was performed and reveals a sinus tachycardia with PACs. Patient's laboratory work is significant for a WBC of 18, elevated high-sensitivity troponin of 407, lactate of 10 and a positive UA. ABG is notable for acidosis at 7.09, pCO2 of 56 and pO2 >420. patient seemed to stabilize. The case was discussed with the hospitalist service who will evaluate the patient for admission, further evaluation and management. Family was informed of the findings and plan and agreed. After the family had a conference call, the patient has been made DNR. MONITORING: An order for cardiac monitoring was placed and the patient is noted to be in a tachycardic at 132 bpm. beats per minute. RADIOLOGY: chest x-ray to my interpretation reveals the ET tube in good position 1.8 cm above the ravin, patchy focal infiltrates of the left lower lung concerning for possible aspiration. Head CT to my interpretation reveals no evidence of acute intracranial abnormality, otherwise defer to radiology's over read. EKG: To my interpretation reveals a sinus tachycardia with PACs. At 137 bpm. There is a nonspecific intraventricular block. T wave abnormalities in the anterior lateral leads. DISPOSITION: Admission I have personally spent greater than 60 minutes of critical care time in the direct management of this patient. This includes bedside care, interpretation of diagnostic studies, and testing, discussion with consultants, patient, and family members, and other required patient management activities. This 60 minutes is in excess of all separately billable procedures. Past Med/Surg History Medical History (Updated 09/23/23 @ 15:41 by Naima Finch MD) Counseling regarding end of life decision making Pulmonary emboli IVC thrombosis Multiple fractures of ribs, bilateral, initial encounter for closed fracture Left lower lobe pneumonia Myoclonic jerking Anoxic brain injury COVID-19 Fall Anxiety H/O esophageal reflux Hyperactivity of bladder Lice infested hair Menopause Sciatica of left side Seborrheic dermatitis Tracheoesophageal fistula, esophageal atresia and stenosis, congenital Depression Surgical History History of esophagogastroduodenoscopy (EGD) Family History Mother Myocardial infarction Father Myocardial infarction Sister Myocardial infarction Brother No problems noted. Son Prostate cancer Other Cancer Coronary heart disease Denies family history of Ovarian cancer Breast cancer Colorectal cancer Social History Smoking Status: Unknown if ever smoked Tobacco Type: Cigarettes Age Started Using Tobacco: 22; Age Quit Using Tobacco: 42; packs per day: 1; Cigarettes Per Day: 20; Second Hand Exposure: No; Do You Dip or Chew Tobacco: No; Hx Alcohol Use: No Hx Substance Use: No Preferred Language: Thai Communication Ability: Unable Visual Impairment: No Limitations Hearing Ability: Normal Chairperson Anesthesiology Required: No Beliefs That Will Affect Care: None marital status: / Current Living Situation: Personal Care Facility Current Living Situation Comment: [facility] current occupational status: retired current occupation: retired from career as entry level administrative assistant with [employer] Other Information That Helps Us Care for You: No Feels Safe at Home: Yes Childhood Exposure to Second-Hand Smoke: Yes Diet: regular caffeine: Yes Dental Care, Regularly: Yes Physical Activity Frequency: 3-4 Times per Week Physical Activity Frequency Comment: walking short distances Seatbelt Use: always Sunscreen Use: No Assistive Devices: Glasses, Walker and Wheelchair Allergies Allergies Allergy/AdvReac Type Severity Reaction Status Date / Time sertraline Allergy Intermediate itchy Verified 08/22/23 14:09 atorvastatin Allergy Unknown Unknown Verified 08/22/23 14:09 simvastatin Allergy Unknown Unknown Verified 08/22/23 14:09 Sulfa (Sulfonamide Allergy Unknown RASH Verified 08/22/23 14:09 Antibiotics) Home Meds Home Medications Medication Instructions Recorded Confirmed aspirin 81 mg tablet,delayed 81 mg PO DAILY 01/17/19 09/23/23 release acetaminophen 325 mg capsule 325 - 650 mg PO Q4H PRN fever or 05/29/23 09/23/23 cold symptoms fenofibrate nanocrystallized 145 145 mg PO QPM 05/29/23 09/23/23 mg tablet guaifenesin 200 mg tablet 200 - 400 mg PO Q4H PRN Congestion 05/29/23 09/23/23 ibuprofen 200 mg tablet 400 mg PO .Q4-6H PRN pain 05/29/23 09/23/23 multivitamin 1 tab PO QAM 05/29/23 09/23/23 pantoprazole 40 mg tablet,delayed 40 mg PO QAM 05/29/23 09/23/23 release rosuvastatin 20 mg tablet 20 mg PO QPM 05/29/23 09/23/23 Previous Rx's Medication Instructions Recorded primidone 50 mg tablet 50 mg PO BID #180 tabs 09/30/22 carbidopa 25 mg-levodopa 100 mg 1.5 tab PO TID 90 days #405 tabs 12/16/22 tablet (Sinemet) cough drops See Rx Instructions .Route 04/12/23 .COMPLEX #90 tabs Wheelchair (Manual) (Manual #1 ea 06/27/23 Wheelchair) paroxetine HCl 30 mg tablet 30 mg PO QPM #90 tabs 06/27/23 polyethylene glycol 3350 17 gram 17 g PO PRN #100 ea 07/06/23 oral powder packet (Miralax) nystatin 100,000 unit/gram topical 1 applic topical TID #60 grams 08/22/23 powder Results & Data (ED) Vital Signs Vital Signs - 24 hr 09/23/23 09:52 09/23/23 09:55 09/23/23 10:00 Temperature 35.0 C L Temperature Source Maurice Cath ( Temp Sensing) Pulse Rate 63 129 H Pulse Rate from SpO2 Sensor 130 H Respiratory Rate 30 H 22 Blood Pressure Blood Pressure Mean Pulse Oximetry 100 Oxygen Delivery Method Mechanical Vent Fraction of Inspired Oxygen Sepsis New/Unexplained Change in Mental Status N/A Sepsis Action Taken by Nursing No Action Required End-Tidal CO2 14 26 09/23/23 10:05 09/23/23 10:05 09/23/23 10:05 Temperature Temperature Source Pulse Rate 101 H 133 H 134 H Pulse Rate from SpO2 Sensor 134 H Respiratory Rate 25 H 15 Blood Pressure 140/87 Blood Pressure Mean 104 Pulse Oximetry 100 100 Oxygen Delivery Method Fraction of Inspired Oxygen 100 Sepsis New/Unexplained Change in Mental Status Sepsis Action Taken by Nursing End-Tidal CO2 30 28 09/23/23 10:10 09/23/23 10:11 09/23/23 10:28 Temperature Temperature Source Pulse Rate 117 H 117 H 107 H Pulse Rate from SpO2 Sensor 118 H 116 H 107 H Respiratory Rate 11 L 11 L 13 Blood Pressure 85/60 L 81/55 L Blood Pressure Mean 68 63 Pulse Oximetry 100 100 100 Oxygen Delivery Method Fraction of Inspired Oxygen Sepsis New/Unexplained Change in Mental Status Sepsis Action Taken by Nursing End-Tidal CO2 27 34 29 09/23/23 10:30 09/23/23 10:33 09/23/23 10:36 Temperature Temperature Source Pulse Rate 107 H 108 H 108 H Pulse Rate from SpO2 Sensor 107 H 108 H 109 H Respiratory Rate 15 12 19 Blood Pressure 74/52 L 82/49 L Blood Pressure Mean 59 60 Pulse Oximetry 100 100 100 Oxygen Delivery Method Fraction of Inspired Oxygen Sepsis New/Unexplained Change in Mental Status Sepsis Action Taken by Nursing End-Tidal CO2 23 28 26 09/23/23 10:40 09/23/23 10:44 09/23/23 10:45 Temperature Temperature Source Pulse Rate 108 H 109 H 109 H Pulse Rate from SpO2 Sensor 110 H 111 H 111 H Respiratory Rate 13 16 12 Blood Pressure 77/49 L Blood Pressure Mean 58 Pulse Oximetry 99 100 100 Oxygen Delivery Method Fraction of Inspired Oxygen Sepsis New/Unexplained Change in Mental Status Sepsis Action Taken by Nursing End-Tidal CO2 26 28 30 09/23/23 10:50 09/23/23 10:50 09/23/23 10:55 Temperature Temperature Source Pulse Rate 111 H Pulse Rate from SpO2 Sensor 112 H Respiratory Rate 24 11 L Blood Pressure 90/60 L 72/50 L Blood Pressure Mean 70 58 Pulse Oximetry 100 Oxygen Delivery Method Fraction of Inspired Oxygen 70 Sepsis New/Unexplained Change in Mental Status Sepsis Action Taken by Nursing End-Tidal CO2 29 09/23/23 10:57 09/23/23 11:00 09/23/23 11:02 Temperature Temperature Source Pulse Rate 115 H 112 H 111 H Pulse Rate from SpO2 Sensor 114 H 112 H 111 H Respiratory Rate 15 12 14 Blood Pressure 73/53 L 76/46 L Blood Pressure Mean 59 56 Pulse Oximetry 99 99 99 Oxygen Delivery Method Fraction of Inspired Oxygen Sepsis New/Unexplained Change in Mental Status Sepsis Action Taken by Nursing End-Tidal CO2 28 25 29 09/23/23 11:04 09/23/23 11:05 09/23/23 11:09 Temperature Temperature Source Pulse Rate 113 H 114 H 117 H Pulse Rate from SpO2 Sensor 111 H 113 H 117 H Respiratory Rate 13 9 L 15 Blood Pressure 94/54 L 95/53 L 89/56 L Blood Pressure Mean 67 67 67 Pulse Oximetry 99 100 100 Oxygen Delivery Method Mechanical Vent Fraction of Inspired Oxygen Sepsis New/Unexplained Change in Mental Status Sepsis Action Taken by Nursing End-Tidal CO2 32 38 31 09/23/23 11:10 09/23/23 11:11 09/23/23 11:15 Temperature Temperature Source Pulse Rate 118 H 117 H 122 H Pulse Rate from SpO2 Sensor 118 H 118 H 122 H Respiratory Rate 19 10 L 14 Blood Pressure 103/63 Blood Pressure Mean 76 Pulse Oximetry 100 97 98 Oxygen Delivery Method Mechanical Vent Fraction of Inspired Oxygen Sepsis New/Unexplained Change in Mental Status Sepsis Action Taken by Nursing End-Tidal CO2 30 34 29 09/23/23 11:16 09/23/23 11:16 09/23/23 11:19 Temperature Temperature Source Pulse Rate 122 H 122 H Pulse Rate from SpO2 Sensor 123 H 122 H Respiratory Rate 15 9 L Blood Pressure 124/48 L Blood Pressure Mean 75 Pulse Oximetry 99 100 Oxygen Delivery Method Fraction of Inspired Oxygen Sepsis New/Unexplained Change in Mental Status Sepsis Action Taken by Nursing End-Tidal CO2 32 34 09/23/23 11:21 09/23/23 11:25 09/23/23 11:44 Temperature Temperature Source Pulse Rate 122 H 118 H Pulse Rate from SpO2 Sensor 122 H 122 H 122 H Respiratory Rate 15 17 Blood Pressure 108/59 L Blood Pressure Mean 75 Pulse Oximetry 100 100 99 Oxygen Delivery Method Fraction of Inspired Oxygen Sepsis New/Unexplained Change in Mental Status Sepsis Action Taken by Nursing End-Tidal CO2 32 34 09/23/23 11:51 09/23/23 11:54 09/23/23 11:55 Temperature Temperature Source Pulse Rate 123 H 122 H Pulse Rate from SpO2 Sensor 124 H 122 H Respiratory Rate 15 18 Blood Pressure Blood Pressure Mean Pulse Oximetry 99 100 Oxygen Delivery Method Fraction of Inspired Oxygen 50 Sepsis New/Unexplained Change in Mental Status Sepsis Action Taken by Nursing End-Tidal CO2 40 42 09/23/23 12:00 Temperature Temperature Source Pulse Rate 124 H Pulse Rate from SpO2 Sensor 121 H Respiratory Rate 17 Blood Pressure Blood Pressure Mean Pulse Oximetry 98 Oxygen Delivery Method Fraction of Inspired Oxygen Sepsis New/Unexplained Change in Mental Status Sepsis Action Taken by Nursing End-Tidal CO2 29 Home Medications Current Medication List: was personally reviewed by me Laboratory Data Attestation: I reviewed the patient's lab results. 09/23/23 10:01 09/23/23 10:01 Lab Results 09/23/23 09/23/23 09/23/23 Range/Units 10:01 10:02 10:04 WBC 18.70 H (4.8-10.8) K/ul RBC 3.98 L (4.20-5.40) M/uL Hgb 12.1 (12.0-16.0) g/dl POC Hgb 12.2 (12.0-16.0) g/dl Hct 40.1 (37.0-47.0) % POC Hct 36 L (37-47) % MCV 100.8 H (80.0-100.0) fL MCH 30.4 (25.0-34.0) pg MCHC 30.2 L (32.0-36.0) g/dL RDW Std Deviation 48.6 H (36.4-46.3) fL RDW Coeff of Anahi 13.1 (11.5-14.5) % Plt Count 148 (130-400) K/uL MPV 11.8 (9.4-12.4) fL Immature Gran % (Auto) 6.4 % Neut % (Auto) 39.3 % Lymph % (Auto) 47.5 % Payne % (Auto) 3.5 % Eos % (Auto) 2.8 % Baso % (Auto) 0.5 % Neut # (Auto) 7.35 H (1.40-6.50) K/uL Lymph # (Auto) 8.89 H (1.20-3.40) K/uL Payne # (Auto) 0.65 H (0.11-0.59) K/uL Eos # (Auto) 0.52 H (0.00-0.50) K/uL Baso # (Auto) 0.10 (0.00-0.20) K/uL Immature Gran # (Auto) 1.19 H (0.01-0.20) K/uL Absolute Nucleated RBC 0.04 (0.00-0.12) K/uL Nucleated RBC % (auto) 0.2 % Toxic Vacuolation 1+ PT 13.0 H (9.0-12.0) Seconds INR 1.2 H (0.9-1.1) APTT 54 H (21-31) Seconds PTT Ratio 2.0 POC pH (7.35-7.45) POC pCO2 (35-46) mmHg POC pO2 (80-95) mmHg POC HCO3 (19-24) kimmy/L POC Base Excess (-9-1.8) kimmy/L POC ABG O2 Sat (90-95) % POC Sodium 140 (135-144) mmol/L Sodium 141 (136-145) mmol/L POC Potassium 4.0 (3.3-5.0) mmol/L Potassium 3.9 (3.5-5.1) mmol/L POC Chloride 108 (101-112) mmol/L Chloride 108 H (98-107) mmol/L Carbon Dioxide 19 L (21-32) mmol/L POC Total CO2 21 L (24-31) mmol/L Anion Gap 14 H (3-11) POC Anion Gap 15.0 L (16-25) mmol/L POC BUN 19 H (7-18) mg/dl BUN 18 (6-23) mg/dl Creatinine 0.96 (0.6-1.2) mg/dl POC Creatinine 0.9 (0.6-1.3) mg/dl Est Cr Clr Drug Dosing Not Reportable Est GFR ( Amer) 64.3 ml/min Est GFR (Non-Af Amer) 55.5 ml/min BUN/Creatinine Ratio 18.8 (10-20) Glucose 151 H (70-99(Fasting)) mg/dl POC Glucose (other) 140 H (70-99) mg/dl Lactate 10.7 H* (0.4-2.0) mmol/L Calcium 8.8 (8.6-10.3) mg/dl POC Ioniz Calcium Ayanna 1.57 H (1.12-1.32) mmol/l Magnesium 2.3 (1.7-2.4) mg/dl Total Bilirubin 0.5 (0.2-1.0) mg/dl AST 416 H (13-39) U/L ALT 72 H (7-52) U/L Alkaline Phosphatase 48 (34-104) U/L Total Creatine Kinase 98 (26-192) U/L Troponin I High Sens 407.5 H* (0-14) pg/ml B-Natriuretic Peptide 50 (0-100) pg/ml Total Protein 5.4 L (6.0-8.3) gm/dl Albumin 3.3 L (3.4-5.0) gm/dl Globulin 2.1 L (2.5-4.0) gm/dl Albumin/Globulin Ratio 1.6 (0.9-2) Lipase 95 H (11-82) U/L TSH 10.230 H (0.300-4.500) uIu/ml Free T4 0.83 (0.61-1.60) ng/dl Ethyl Alcohol mg/dL (<10.0) mg/dl 09/23/23 09/23/23 Range/Units 10:44 11:02 WBC (4.8-10.8) K/ul RBC (4.20-5.40) M/uL Hgb (12.0-16.0) g/dl POC Hgb 8.8 L (12.0-16.0) g/dl Hct (37.0-47.0) % POC Hct 26 L (37-47) % MCV (80.0-100.0) fL MCH (25.0-34.0) pg MCHC (32.0-36.0) g/dL RDW Std Deviation (36.4-46.3) fL RDW Coeff of Anahi (11.5-14.5) % Plt Count (130-400) K/uL MPV (9.4-12.4) fL Immature Gran % (Auto) % Neut % (Auto) % Lymph % (Auto) % Payne % (Auto) % Eos % (Auto) % Baso % (Auto) % Neut # (Auto) (1.40-6.50) K/uL Lymph # (Auto) (1.20-3.40) K/uL Payne # (Auto) (0.11-0.59) K/uL Eos # (Auto) (0.00-0.50) K/uL Baso # (Auto) (0.00-0.20) K/uL Immature Gran # (Auto) (0.01-0.20) K/uL Absolute Nucleated RBC (0.00-0.12) K/uL Nucleated RBC % (auto) % Toxic Vacuolation PT (9.0-12.0) Seconds INR (0.9-1.1) APTT (21-31) Seconds PTT Ratio POC pH 7.09 L* (7.35-7.45) POC pCO2 56 H (35-46) mmHg POC pO2 > 420 H (80-95) mmHg POC HCO3 17 L (19-24) kimmy/L POC Base Excess -13.0 L (-9-1.8) kimmy/L POC ABG O2 Sat 100.0 H (90-95) % POC Sodium 143 (135-144) mmol/L Sodium (136-145) mmol/L POC Potassium 3.4 (3.3-5.0) mmol/L Potassium (3.5-5.1) mmol/L POC Chloride (101-112) mmol/L Chloride (98-107) mmol/L Carbon Dioxide (21-32) mmol/L POC Total CO2 19 L (24-31) mmol/L Anion Gap (3-11) POC Anion Gap (16-25) mmol/L POC BUN (7-18) mg/dl BUN (6-23) mg/dl Creatinine (0.6-1.2) mg/dl POC Creatinine (0.6-1.3) mg/dl Est Cr Clr Drug Dosing Est GFR ( Amer) ml/min Est GFR (Non-Af Amer) ml/min BUN/Creatinine Ratio (10-20) Glucose (70-99(Fasting)) mg/dl POC Glucose (other) (70-99) mg/dl Lactate (0.4-2.0) mmol/L Calcium (8.6-10.3) mg/dl POC Ioniz Calcium Ayanna (1.12-1.32) mmol/l Magnesium (1.7-2.4) mg/dl Total Bilirubin (0.2-1.0) mg/dl AST (13-39) U/L ALT (7-52) U/L Alkaline Phosphatase (34-104) U/L Total Creatine Kinase (26-192) U/L Troponin I High Sens (0-14) pg/ml B-Natriuretic Peptide (0-100) pg/ml Total Protein (6.0-8.3) gm/dl Albumin (3.4-5.0) gm/dl Globulin (2.5-4.0) gm/dl Albumin/Globulin Ratio (0.9-2) Lipase (11-82) U/L TSH (0.300-4.500) uIu/ml Free T4 (0.61-1.60) ng/dl Ethyl Alcohol mg/dL < 10.0 (<10.0) mg/dl Administered Medications Fentanyl Citrate (Fentanyl Bolus From Bag) 50 mcg IV Q60M PRN PRN Reason: Pain or Agitation Stop: 10/07/23 10:10 Last Admin: 09/23/23 10:51 Dose: 50 mcg Documented By: RACHEL Co-signed By: JESSICA Sodium Chloride (Nss) 1,000 mls @ 150 mls/hr IV .Q6H40M [facility] Stop: 10/23/23 10:14 Last Admin: 09/23/23 14:21 Dose: 150 mls/hr Documented By: HANNA Midazolam HCl (Versed) 125 mg in 250 mls @ 16 mls/hr IV .[id number] PRN; Protocol PRN Reason: Sedation Stop: 10/23/23 10:10 Last Titration: 09/23/23 13:48 Dose: 8 mg/hr, 16 mls/hr Documented By: HANNA Co-signed By: MIRNA Titration: 09/23/23 12:04 Dose: 7 mg/hr, 14 mls/hr Documented By: RACHEL Co-signed By: JESSICA Titration: 09/23/23 11:13 Dose: 6 mg/hr, 12 mls/hr Documented By: RACHEL Co-signed By: ARS Titration: 09/23/23 11:08 Dose: 4 mg/hr, 8 mls/hr Documented By: RACHEL Co-signed By: ARS Titration: 09/23/23 10:57 Dose: 2 mg/hr, 4 mls/hr Documented By: RACHEL Co-signed By: ARS Titration: 09/23/23 10:55 Dose: 1.5 mg/hr, 3 mls/hr Documented By: RACHEL Co-signed By: JESSICA Admin: 09/23/23 10:34 Dose: 1 mg/hr, 2 mls/hr Documented By: RACHEL Co-signed By: JESSICA Fentanyl Citrate (Fentanyl Citrate) 2,500 mcg in 250 mls @ 20 mls/hr IV .[id number] [facility]; Protocol Stop: 10/07/23 10:14 Last Titration: 09/23/23 13:48 Dose: 200 mcg/hr, 20 mls/hr Documented By: HANNA Co-signed By: LAF Titration: 09/23/23 11:09 Dose: 150 mcg/hr, 15 mls/hr Documented By: RACHEL Co-signed By: ARS Titration: 09/23/23 11:06 Dose: 100 mcg/hr, 10 mls/hr Documented By: RACHEL Co-signed By: ROSA Titration: 09/23/23 11:02 Dose: 75 mcg/hr, 7.5 mls/hr Documented By: RACHEL Co-signed By: ROSA Admin: 09/23/23 10:47 Dose: 25 mcg/hr, 2.5 mls/hr Documented By: RACHEL Co-signed By: JULITO Epinephrine HCl () 4 mg in 254 mls @ 4.877 mls/hr IV .Q24H [facility]; Protocol Stop: 10/23/23 10:29 Last Titration: 09/23/23 14:45 Dose: 0.14 mcg/kg/min, 34.1 mls/hr Documented By: Titration: 09/23/23 14:21 Dose: 0.16 mcg/kg/min, 39 mls/hr Documented By: Titration: 09/23/23 14:00 Dose: 0.18 mcg/kg/min, 43.9 mls/hr Documented By: Titration: 09/23/23 13:48 Dose: 0.2 mcg/kg/min, 48.9 mls/hr Documented By: Titration: 09/23/23 11:08 Dose: 0.2 mcg/kg/min, 48.8 mls/hr Documented By: Titration: 09/23/23 11:06 Dose: 1.5 mcg/kg/min, 365.8 mls/hr Documented By: Admin: 09/23/23 11:06 Dose: 0.02 mcg/kg/min, 4.9 mls/hr Documented By: RACHEL Co-signed By: ROSA Midazolam HCl (Midazolam Bolus From Bag) 2 mg IV Q60M PRN PRN Reason: Sedation Stop: 10/23/23 10:10 Last Admin: 09/23/23 10:45 Dose: 2 mg Documented By: RACHEL Co-signed By: JULITO Discontinued Medications Fentanyl Citrate (Fentanyl Citrate Pf 100 Mcg/2 Ml Vial) 50 mcg IV NOW STA Stop: 09/23/23 10:02 Last Admin: 09/23/23 10:23 Dose: 50 mcg Documented By: RACHEL Fentanyl Citrate (Fentanyl Citrate Pf 100 Mcg/2 Ml Vial) Confirm Administered Dose 100 mcg .ROUTE .STK-MED ONE Stop: 09/23/23 10:05 Last Admin: 09/23/23 10:37 Dose: Not Given Documented By: RACHLE Sodium Chloride (Nss) 500 mls @ 999 mls/hr IV .Q31M [facility] Stop: 09/23/23 10:45 Last Infusion: 09/23/23 12:08 Dose: Infused Documented By: Admin: 09/23/23 10:43 Dose: 999 mls/hr Documented By: RACHEL Potassium Chloride (K Kevin / Wtr) 10 meq in 100 mls @ 100 mls/hr IV Q1H [facility] Stop: 09/23/23 13:14 Last Infusion: 09/23/23 15:26 Dose: Infused Documented By: Admin: 09/23/23 14:21 Dose: 100 mls/hr Documented By: Infusion: 09/23/23 13:44 Dose: Infused Documented By: Admin: 09/23/23 12:16 Dose: 100 mls/hr Documented By: RACHEL Piperacillin Sod/Tazobactam Sod (Zosyn) 4.5 gm in 100 mls @ 200 mls/hr IV NOW ONE Stop: 09/23/23 11:47 Last Infusion: 09/23/23 12:39 Dose: Infused Documented By: Admin: 09/23/23 12:11 Dose: 200 mls/hr Documented By: RACHEL Sodium Chloride (Nss) 1,000 mls @ 999 mls/hr IV .Q1H1M ONE Stop: 09/23/23 13:00 Last Infusion: 09/23/23 13:48 Dose: Infused Documented By: Admin: 09/23/23 12:00 Dose: 999 mls/hr Documented By: RACHEL Ioversol (Optiray 320 125ml) 118 ml IV ONCE ONE Stop: 09/23/23 13:01 Last Admin: 09/23/23 13:00 Dose: 118 ml Documented By: DEANDRE Midazolam HCl (Midazolam Hcl 5 Mg/Ml 2ml Vial) Confirm Administered Dose 10 mg .ROUTE .STK-MED ONE Stop: 09/23/23 10:03 Last Admin: 09/23/23 10:37 Dose: Not Given Documented By: RACHEL Midazolam HCl (Midazolam Hcl 5 Mg/Ml 1 Ml Vial) 4 mg IV NOW STA Stop: 09/23/23 10:02 Last Admin: 09/23/23 10:04 Dose: 4 mg Documented By: RACHEL Midazolam HCl (Midazolam Hcl 1 Mg/Ml 2ml Vial) 2 mg IV NOW STA Stop: 09/23/23 10:12 Last Admin: 09/23/23 10:31 Dose: 2 mg Documented By: RACHEL Krueger (Stat Iv Infusion Titration Per Protocol) 1 each N/A NOW STA Stop: 09/23/23 10:12 Last Admin: 09/23/23 13:47 Dose: Not Given Documented By: HANNA Krueger (Stat Iv Infusion Titration Per Protocol) 1 each N/A NOW STA Stop: 09/23/23 10:26 Last Admin: 09/23/23 13:47 Dose: Not Given Documented By: HANNA Imaging Data Radiologist's Impression: Chest X-Ray 09/23/23 10:02 SINGLE VIEW CHEST CLINICAL HISTORY: Atypical chest pain. Cardiac arrest. Intubation. FINDINGS: An AP, portable, supine chest radiograph is compared to study dated 05/29/2023 and correlated with chest CT dated 10/13/2014. The examination is degraded by portable technique and patient rotation. An endotracheal tube has been placed. The tip projects approximately 3.5 cm above the ravin The heart is enlarged noting atherosclerotic calcification of the thoracic aorta. There is pulmonary vascular congestion. There are asymmetric airspace opacities at left lung base. No pneumothorax is seen. The skeletal structures are osteopenic. The bony thorax is grossly intact. IMPRESSION: 1. An endotracheal tube has been placed as above. 2. Cardiomegaly with pulmonary vascular congestion. 3. There are asymmetric airspace opacities at the left lung base. This could represent a layering pleural effusion. Correlate clinically for evidence of pneumonia/aspiration pneumonitis. Radiographic follow-up to resolution is recommended. ACT 112: Negative or not required by law. Electronically signed by: Zhen Wyatt M.D. 09/23/2023 12:[address] 09/23/23 10:04 CT SCAN OF THE BRAIN WITHOUT IV CONTRAST CLINICAL HISTORY: Cardiac arrest. Change in mental status. COMPARISON STUDY: CT of the brain dated 01/29/2023. TECHNIQUE: Unenhanced axial CT scan of the brain is performed from the vertex to the skull base. A dose lowering technique was utilized adhering to the principles of ALARA. 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 There is age-related involutional change noting advanced confluent subcortical and periventricular microangiopathic disease. There is no hemorrhage, mass effect, or evidence of acute territorial ischemia by CT criteria. Leonard-white matter differentiation is preserved. No extra-axial fluid collection is seen. Ventricles, sulci, cisterns: Prominent secondary to involutional change. Intracranial vasculature: There is atherosclerotic calcification of the cavernous carotid arteries. Calvarium: Unremarkable. Sinuses and mastoids: There is evidence of previous paranasal sinus surgery. The visualized paranasal sinuses are clear. The mastoid air cells are well pneumatized. Orbits: The bony orbits are grossly intact. IMPRESSION: There is no hemorrhage, mass effect, or evidence of acute territorial ischemia by CT criteria. ACT 112: Negative or not required by law. Electronically signed by: Zhen Wyatt M.D. 09/23/2023 11:47 AM Abdomen/Pelvis CT 09/23/23 12:01 CT ANGIOGRAM OF THE CHEST; CT SCAN OF THE ABDOMEN AND PELVIS WITH IV CONTRAST CLINICAL HISTORY: Cardiac arrest. COMPARISON STUDY: Chest x-ray dated 09/23/2023. Chest CT dated 10/13/2014. Abdominal CT dated 05/30/2023. TECHNIQUE: Following the IV administration of 118 of Optiray 320, CT angiogram of the chest is performed from the upper abdomen to the thoracic inlet utilizing the pulmonary embolus protocol. Images are reviewed in the axial, sagittal, coronal planes. 3-D MIPS images are created and assessed. Subsequently, CT scan of the abdomen and pelvis was performed from the lung bases to the proximal femora. Images are reviewed in the axial, sagittal, and coronal planes. IV contrast was administered without complication. A dose lowering technique was utilized adhering to the principles of ALARA. The examinations are degraded by motion artifact, as well as by streak artifact from the arms which could not be elevated above the chest or abdomen. There is also motion artifact. CT DOSE: 1623.97 mGy.cm FINDINGS: CHEST: Thyroid: Imaged portions of the thyroid gland are normal in size and attenuation. Thoracic aorta: There is atherosclerotic calcification of the thoracic aorta, which is normal in caliber and demonstrates standard 3-vessel arch anatomy. No dissection is seen. Pulmonary vasculature: The pulmonary trunk is normal in caliber. There is pulmonary embolus within the right lower lobe pulmonary artery which extends into segmental and subsegmental branches. No additional pulmonary emboli are clearly identified. Note that the segmental and subsegmental branches are not well assessed due to significant motion artifact. Heart: The heart is mildly enlarged and without pericardial effusion. Lungs and pleural spaces: Evaluation of the lung parenchyma is degraded by motion artifact. An endotracheal tube is in place. The tip is located just above the ravin. Intralobular septal thickening suggests fluid overload/congestive change. There is airspace consolidation in the left lower lobe. Mild patchy airspace opacities are seen in the right lower lobe. No pneumothorax is seen. There is trace left pleural effusion. There are scattered calcified granulomas. Mediastinum: There is no mediastinal lymphadenopathy. Yany: Clear. Axillae: There is no axillary lymphadenopathy. Bony thorax: The skeletal structures are osteopenic. No lytic or blastic lesions are identified. There are acute nondisplaced right anterolateral 4th through 6th rib fractures. There are also acute left anterior 4th and 5th rib fractures. There may be additional nondisplaced fractures. This is not well assessed due to the degree of motion artifact. There is presternal soft tissue edema. A sternal fracture is suspected but cannot be confirmed due to severe motion artifact. ABDOMEN AND PELVIS: Liver: The contrast-enhanced liver is normal in size, contour, and attenuation. There is no intrahepatic biliary ductal dilatation. The hepatic veins and portal veins are patent. Indeterminate hepatic hypodensities measure up to 14 mm. These likely represent small cysts/hemangiomas but cannot be definitively characterized on this examination. Gallbladder: The gallbladder is distended and there is mild pericholecystic infiltration. Spleen: Normal in size and attenuation. Pancreas: Unremarkable. Adrenal glands: Unremarkable. Kidneys: The contrast enhanced kidneys are normal in size and without hydronephrosis. The kidneys enhance symmetrically. A 2 x 1 cm exophytic cyst is seen on the left. Abdominal vasculature: The abdominal aorta is normal in course and caliber. There is deep venous thrombosis within the distal IVC and the left common iliac vein. There is also trace thrombus within the left external iliac vein, the left internal iliac vein, and within a superficial vein in the left upper thigh. Stomach and bowel: An enteric tube has been placed. This terminates above the diaphragm a small hiatal hernia. There is mild to moderate colonic fecal retention. No bowel obstruction is seen. There are mildly distended and fluid- filled loops of small bowel throughout the abdomen. The appendix is not identified and reported surgically absent. Peritoneum: There is no intraperitoneal free air or abdominal ascites. Lymphadenopathy: None. Pelvic viscera: The bladder is decompressed around a Maurice catheter and not well evaluated. The uterus and adnexa are normal as imaged. There are bilateral fat- containing groin hernias, left larger than right. The right piriformis muscle appears expanded with internal hyperdense material seen on image #247. There represents a change from 05/30/2023 and is suspicious for intramuscular hemorrhage. The hyperdense material is suspicious for active extravasation. Skeletal structures: The skeletal structures are osteopenic. There is mild lumbosacral spondylosis. The lumbosacral spine, bony pelvis, and proximal femora appear intact. No lytic or blastic lesions are seen. IMPRESSION: 1. Significantly streak and motion degraded examinations. 2. There is pulmonary embolus within the distal right lower lobe pulmonary artery which extends into segmental and subsegmental branches. 3. An endotracheal tube is in place. The tip is located just above the ravin and this should likely be pulled back. 4. An enteric tube is in place. The tip is located above the diaphragm within a small hiatal hernia. This should be advanced. 5. Patchy airspace consolidation is seen throughout the left lower lobe. There is also minimal patchy airspace consolidation in the right lower lobe. The appearance favors pneumonia/aspiration pneumonitis. Correlate clinically. 6. Trace left pleural effusion. 7. There are acute bilateral anterior rib fractures. The lumbar fractures is difficult to assess due to the degree of motion artifact. 8. There is presternal soft tissue edema and a sternal fracture is suspected. This is difficult to assess due to severe motion artifact. 9. There is no evidence of solid organ injury in the abdomen or pelvis. 10. There is deep venous thrombosis in the distal IVC, the common iliac vein, the left internal and external iliac veins, and within a superficial vein in the left upper thigh. 11. The small bowel loops are mildly dilated and fluid-filled. There is no high- grade obstruction and this may represent ileus. Correlate clinically. 12. The right piriformis muscle appears expanded with surrounding infiltration, which represents a significant change from 05/30/2023. This may represent intramuscular hemorrhage. Active extravasation is suspected. 13. The gallbladder appears distended and there is mild pericholecystic infiltration. Correlate with clinical and laboratory findings. If there is concern for acute cholecystitis a right upper quadrant ultrasound should be obtained. 14. Additional findings as above. ACT 112: Negative or not required by law. Electronically signed by: Zhen Wyatt M.D. 09/23/2023 1:41 PM Chest CTA 09/23/23 12:01 CT ANGIOGRAM OF THE CHEST; CT SCAN OF THE ABDOMEN AND PELVIS WITH IV CONTRAST CLINICAL HISTORY: Cardiac arrest. COMPARISON STUDY: Chest x-ray dated 09/23/2023. Chest CT dated 10/13/2014. Abdominal CT dated 05/30/2023. TECHNIQUE: Following the IV administration of 118 of Optiray 320, CT angiogram of the chest is performed from the upper abdomen to the thoracic inlet utilizing the pulmonary embolus protocol. Images are reviewed in the axial, sagittal, coronal planes. 3-D MIPS images are created and assessed. Subsequently, CT scan of the abdomen and pelvis was performed from the lung bases to the proximal femora. Images are reviewed in the axial, sagittal, and coronal planes. IV contrast was administered without complication. A dose lowering technique was utilized adhering to the principles of ALARA. The examinations are degraded by motion artifact, as well as by streak artifact from the arms which could not be elevated above the chest or abdomen. There is also motion artifact. CT DOSE: 1623.97 mGy.cm FINDINGS: CHEST: Thyroid: Imaged portions of the thyroid gland are normal in size and attenuation. Thoracic aorta: There is atherosclerotic calcification of the thoracic aorta, which is normal in caliber and demonstrates standard 3-vessel arch anatomy. No dissection is seen. Pulmonary vasculature: The pulmonary trunk is normal in caliber. There is pulmonary embolus within the right lower lobe pulmonary artery which extends into segmental and subsegmental branches. No additional pulmonary emboli are clearly identified. Note that the segmental and subsegmental branches are not well assessed due to significant motion artifact. Heart: The heart is mildly enlarged and without pericardial effusion. Lungs and pleural spaces: Evaluation of the lung parenchyma is degraded by motion artifact. An endotracheal tube is in place. The tip is located just above the ravin. Intralobular septal thickening suggests fluid overload/congestive change. There is airspace consolidation in the left lower lobe. Mild patchy airspace opacities are seen in the right lower lobe. No pneumothorax is seen. There is trace left pleural effusion. There are scattered calcified granulomas. Mediastinum: There is no mediastinal lymphadenopathy. Yany: Clear. Axillae: There is no axillary lymphadenopathy. Bony thorax: The skeletal structures are osteopenic. No lytic or blastic lesions are identified. There are acute nondisplaced right anterolateral 4th through 6th rib fractures. There are also acute left anterior 4th and 5th rib fractures. There may be additional nondisplaced fractures. This is not well assessed due to the degree of motion artifact. There is presternal soft tissue edema. A sternal fracture is suspected but cannot be confirmed due to severe motion artifact. ABDOMEN AND PELVIS: Liver: The contrast-enhanced liver is normal in size, contour, and attenuation. There is no intrahepatic biliary ductal dilatation. The hepatic veins and portal veins are patent. Indeterminate hepatic hypodensities measure up to 14 mm. These likely represent small cysts/hemangiomas but cannot be definitively characterized on this examination. Gallbladder: The gallbladder is distended and there is mild pericholecystic infiltration. Spleen: Normal in size and attenuation. Pancreas: Unremarkable. Adrenal glands: Unremarkable. Kidneys: The contrast enhanced kidneys are normal in size and without hydronephrosis. The kidneys enhance symmetrically. A 2 x 1 cm exophytic cyst is seen on the left. Abdominal vasculature: The abdominal aorta is normal in course and caliber. There is deep venous thrombosis within the distal IVC and the left common iliac vein. There is also trace thrombus within the left external iliac vein, the left internal iliac vein, and within a superficial vein in the left upper thigh. Stomach and bowel: An enteric tube has been placed. This terminates above the diaphragm a small hiatal hernia. There is mild to moderate colonic fecal retention. No bowel obstruction is seen. There are mildly distended and fluid- filled loops of small bowel throughout the abdomen. The appendix is not identified and reported surgically absent. Peritoneum: There is no intraperitoneal free air or abdominal ascites. Lymphadenopathy: None. Pelvic viscera: The bladder is decompressed around a Maurice catheter and not well evaluated. The uterus and adnexa are normal as imaged. There are bilateral fat- containing groin hernias, left larger than right. The right piriformis muscle appears expanded with internal hyperdense material seen on image #247. There represents a change from 05/30/2023 and is suspicious for intramuscular hemorrhage. The hyperdense material is suspicious for active extravasation. Skeletal structures: The skeletal structures are osteopenic. There is mild lumbosacral spondylosis. The lumbosacral spine, bony pelvis, and proximal femora appear intact. No lytic or blastic lesions are seen. IMPRESSION: 1. Significantly streak and motion degraded examinations. 2. There is pulmonary embolus within the distal right lower lobe pulmonary artery which extends into segmental and subsegmental branches. 3. An endotracheal tube is in place. The tip is located just above the ravin and this should likely be pulled back. 4. An enteric tube is in place. The tip is located above the diaphragm within a small hiatal hernia. This should be advanced. 5. Patchy airspace consolidation is seen throughout the left lower lobe. There is also minimal patchy airspace consolidation in the right lower lobe. The appearance favors pneumonia/aspiration pneumonitis. Correlate clinically. 6. Trace left pleural effusion. 7. There are acute bilateral anterior rib fractures. The lumbar fractures is difficult to assess due to the degree of motion artifact. 8. There is presternal soft tissue edema and a sternal fracture is suspected. This is difficult to assess due to severe motion artifact. 9. There is no evidence of solid organ injury in the abdomen or pelvis. 10. There is deep venous thrombosis in the distal IVC, the common iliac vein, the left internal and external iliac veins, and within a superficial vein in the left upper thigh. 11. The small bowel loops are mildly dilated and fluid-filled. There is no high- grade obstruction and this may represent ileus. Correlate clinically. 12. The right piriformis muscle appears expanded with surrounding infiltration, which represents a significant change from 05/30/2023. This may represent intramuscular hemorrhage. Active extravasation is suspected. 13. The gallbladder appears distended and there is mild pericholecystic infiltration. Correlate with clinical and laboratory findings. If there is concern for acute cholecystitis a right upper quadrant ultrasound should be obtained. 14. Additional findings as above. ACT 112: Negative or not required by law. Electronically signed by: Zhen Wyatt M.D. 09/23/2023 1:41 PM Discharge Plan Visit Data Chief Complaint: Cardiac Arrest/CPR Stated Complaint: CARDIAC ARREST ED Provider: Stef,Naima B Discharge Problem: Cardiac arrest Patient Disposition: Admitted As Inpatient Discharge Instructions Interventions: ED Discharge Assessment Last Done: 09/23/23 12:37
--- NOTE | 2023-09-23 13:42 | CT Scan Report ---
CT ANGIOGRAM OF THE CHEST; CT SCAN OF THE ABDOMEN AND PELVIS WITH IV CONTRAST CLINICAL HISTORY: Cardiac arrest. COMPARISON STUDY: Chest x-ray dated 09/23/2023. Chest CT dated 10/13/2014. Abdominal CT dated 05/30/2023. TECHNIQUE: Following the IV administration of 118 of Optiray 320, CT angiogram of the chest is perfor med from the upper abdomen to the thoracic inlet utilizing the pulmonary embolus protocol. Images are reviewed in the axial, sagittal, coronal planes. 3-D MIPS images are created and assessed. Subsequen tly, CT scan of the abdomen and pelvis was performed from the lung bases to the proximal femora. Imag es are reviewed in the axial, sagittal, and coronal planes. IV contrast was administered without comp lication. A dose lowering technique was utilized adhering to the principles of ALARA. The examination s are degraded by motion artifact, as well as by streak artifact from the arms which could not be malik vated above the chest or abdomen. There is also motion artifact. CT DOSE: 1623.97 mGy.cm FINDINGS: CHEST: Thyroid: Imaged portions of the thyroid gland are normal in size and attenuation. Thoracic aorta: There is atherosclerotic calcification of the thoracic aorta, which is normal in chele lolly and demonstrates standard 3-vessel arch anatomy. No dissection is seen. Pulmonary vasculature: The pulmonary trunk is normal in caliber. There is pulmonary embolus within th e right lower lobe pulmonary artery which extends into segmental and subsegmental branches. No additi onal pulmonary emboli are clearly identified. Note that the segmental and subsegmental branches are n ot well assessed due to significant motion artifact. Heart: The heart is mildly enlarged and without pericardial effusion. Lungs and pleural spaces: Evaluation of the lung parenchyma is degraded by motion artifact. An endotr acheal tube is in place. The tip is located just above the ravin. Intralobular septal thickening sug gests fluid overload/congestive change. There is airspace consolidation in the left lower lobe. Mild patchy airspace opacities are seen in the right lower lobe. No pneumothorax is seen. There is trace l eft pleural effusion. There are scattered calcified granulomas. Mediastinum: There is no mediastinal lymphadenopathy. Yany: Clear. Axillae: There is no axillary lymphadenopathy. Bony thorax: The skeletal structures are osteopenic. No lytic or blastic lesions are identified. Ther e are acute nondisplaced right anterolateral 4th through 6th rib fractures. There are also acute left anterior 4th and 5th rib fractures. There may be additional nondisplaced fractures. This is not well assessed due to the degree of motion artifact. There is presternal soft tissue edema. A sternal frac ture is suspected but cannot be confirmed due to severe motion artifact. ABDOMEN AND PELVIS: Liver: The contrast-enhanced liver is normal in size, contour, and attenuation. There is no intrahepa tic biliary ductal dilatation. The hepatic veins and portal veins are patent. Indeterminate hepatic h ypodensities measure up to 14 mm. These likely represent small cysts/hemangiomas but cannot be defini tively characterized on this examination. Gallbladder: The gallbladder is distended and there is mild pericholecystic infiltration. Spleen: Normal in size and attenuation. Pancreas: Unremarkable. Adrenal glands: Unremarkable. Kidneys: The contrast enhanced kidneys are normal in size and without hydronephrosis. The kidneys enh ance symmetrically. A 2 x 1 cm exophytic cyst is seen on the left. Abdominal vasculature: The abdominal aorta is normal in course and caliber. There is deep venous thro mbosis within the distal IVC and the left common iliac vein. There is also trace thrombus within the left external iliac vein, the left internal iliac vein, and within a superficial vein in the left upp er thigh. Stomach and bowel: An enteric tube has been placed. This terminates above the diaphragm a small hiata l hernia. There is mild to moderate colonic fecal retention. No bowel obstruction is seen. There are mildly distended and fluid-filled loops of small bowel throughout the abdomen. The appendix is not i dentified and reported surgically absent. Peritoneum: There is no intraperitoneal free air or abdominal ascites. Lymphadenopathy: None. Pelvic viscera: The bladder is decompressed around a Maurice catheter and not well evaluated. The uteru s and adnexa are normal as imaged. There are bilateral fat-containing groin hernias, left larger than right. The right piriformis muscle appears expanded with internal hyperdense material seen on image #247. There represents a change from 05/30/2023 and is suspicious for intramuscular hemorrhage. The hyp erdense material is suspicious for active extravasation. Skeletal structures: The skeletal structures are osteopenic. There is mild lumbosacral spondylosis. T he lumbosacral spine, bony pelvis, and proximal femora appear intact. No lytic or blastic lesions are seen. IMPRESSION: 1. Significantly streak and motion degraded examinations. 2. There is pulmonary embolus within the distal right lower lobe pulmonary artery which extends into segmental and subsegmental branches. 3. An endotracheal tube is in place. The tip is located just above the ravin and this should likely be pulled back. 4. An enteric tube is in place. The tip is located above the diaphragm within a small hiatal hernia. This should be advanced. 5. Patchy airspace consolidation is seen throughout the left lower lobe. There is also minimal patchy airspace consolidation in the right lower lobe. The appearance favors pneumonia/aspiration pneumonit is. Correlate clinically. 6. Trace left pleural effusion. 7. There are acute bilateral anterior rib fractures. The lumbar fractures is difficult to assess due to the degree of motion artifact. 8. There is presternal soft tissue edema and a sternal fracture is suspected. This is difficult to as sess due to severe motion artifact. 9. There is no evidence of solid organ injury in the abdomen or pelvis. 10. There is deep venous thrombosis in the distal IVC, the common iliac vein, the left internal and e xternal iliac veins, and within a superficial vein in the left upper thigh. 11. The small bowel loops are mildly dilated and fluid-filled. There is no high-grade obstruction and this may represent ileus. Correlate clinically. 12. The right piriformis muscle appears expanded with surrounding infiltration, which represents a si gnificant change from 05/30/2023. This may represent intramuscular hemorrhage. Active extravasation is suspected. 13. The gallbladder appears distended and there is mild pericholecystic infiltration. Correlate with clinical and laboratory findings. If there is concern for acute cholecystitis a right upper quadrant ultrasound should be obtained. 14. Additional findings as above. ACT 112: Negative or not required by law. Electronically signed by: Zhen Wyatt M.D. 09/23/2023 1:41 PM
--- NOTE | 2023-09-23 13:43 | Critical Care Consultation ---
Date of Consultation September 23, 2023 Assessment & Plan (1) Cardiac arrest with successful resuscitation: (2) Pulmonary emboli: (3) IVC thrombosis: (4) Anoxic brain injury: (5) Myoclonic jerking: (6) Ventilator dependence: (7) Sepsis: (8) UTI (urinary tract infection): (9) Left lower lobe pneumonia: (10) Multiple fractures of ribs, bilateral, initial encounter for closed fracture: (11) Counseling regarding end of life decision making: Plan 83-year-old female with a complex medical history including Parkinson disease and prior CVA who had out of hospital cardiac arrest which then continued in the ER. She is now presenting with signs of anoxic brain injury and massive myoclonic jerking activity. CT imaging of her chest and abdomen reveal IVC thrombosis, pulmonary emboli and possible active bleeding in the piriformis muscle. I had a discussion with the patient's family including numerous children as well who are indicating that they would like to honor the patient's wishes which would be no further aggressive care at this time given the severity of her illne ss. They are understanding that she likely has suffered catastrophic anoxic brain injury and would like to focus on comfort measures only at this time. Will proceed with compassionate extubation when family is ready. Patient CT head, chest and abdomen reviewed as noted per HPI. Extensive pulmonary emboli, IVC thrombosis and possible active extravasation in the piriformis muscle noted. CRITICAL CARE TIME - I have personally spent 49 minutes of critical care time in the direct management of this patient. This is a life/limb threatening event. This includes time spent evaluating patient, direct bedside care, chart review, placing orders, interpretation of diagnostic studies, discussion with consultants, patient, and family members, as well as other required patient management activities. This time is exclusive of all separately billable procedures, and teaching time and separate from and in addition to any other critical care service time. History of Present Illness Reason for Consultation: Cardiac arrest History of Present Illness 83-year-old female with a past medical history of Parkinson's disease and prior CVA with development of left hemiparesis followed by neurology in the outpatient clinic who presented to to the ER today after being found down by staff at her nursing facility initiated CPR. Patient was intubated by EMS. Patient had ongoing chest compressions. She received several doses of epinephrine. No shocks were given. She also received approximately 5 minutes of CPR in the ER with ROSC obtained. Patient was noted to have bleeding from her oral cavity. Blood gases were indicative of severe combined respiratory and metabolic acidosis with a pH of 7.09. History is unobtainable from the patient as she is intubated and sedated. Care was coordinated with the hospitalist service, ER nurse, bedside RN and ER service. I had a lengthy discussion with the patient's family in the waiting room. Family is all in agreement that the patient would not want aggressive measures and the family is requesting that we proceed with comfort measures and palliative extubation until family members have been able to visit with the patient. Allergies Allergy/AdvReac Type Severity Reaction Status Date / Time sertraline Allergy Intermediate itchy Verified 08/22/23 14:09 atorvastatin Allergy Unknown Unknown Verified 08/22/23 14:09 simvastatin Allergy Unknown Unknown Verified 08/22/23 14:09 Sulfa (Sulfonamide Allergy Unknown RASH Verified 08/22/23 14:09 Antibiotics) Home Medications Medication Instructions Recorded Confirmed Type aspirin 81 mg tablet,delayed 81 mg PO DAILY 01/17/19 09/23/23 History release primidone 50 mg tablet 50 mg PO BID #180 tabs 09/30/22 09/23/23 Rx carbidopa 25 mg-levodopa 100 mg 1.5 tab PO TID 90 days #405 tabs 12/16/22 09/23/23 Rx tablet (Sinemet) cough drops See Rx Instructions .Route 04/12/23 09/23/23 Rx .COMPLEX #90 tabs acetaminophen 325 mg capsule 325 - 650 mg PO Q4H PRN fever or 05/29/23 09/23/23 History cold symptoms fenofibrate nanocrystallized 145 145 mg PO QPM 05/29/23 09/23/23 History mg tablet guaifenesin 200 mg tablet 200 - 400 mg PO Q4H PRN Congestion 05/29/23 09/23/23 History ibuprofen 200 mg tablet 400 mg PO .Q4-6H PRN pain 05/29/23 09/23/23 History multivitamin 1 tab PO QAM 05/29/23 09/23/23 History pantoprazole 40 mg tablet,delayed 40 mg PO QAM 05/29/23 09/23/23 History release rosuvastatin 20 mg tablet 20 mg PO QPM 05/29/23 09/23/23 History Wheelchair (Manual) (Manual #1 ea 06/27/23 08/22/23 Rx Wheelchair) paroxetine HCl 30 mg tablet 30 mg PO QPM #90 tabs 06/27/23 09/23/23 Rx polyethylene glycol 3350 17 gram 17 g PO PRN #100 ea 07/06/23 09/23/23 Rx oral powder packet (Miralax) nystatin 100,000 unit/gram topical 1 applic topical TID #60 grams 08/22/23 09/23/23 Rx powder Patient History Medical History (Updated 09/23/23 @ 13:59 by Dheeraj Everett MD) Counseling regarding end of life decision making Pulmonary emboli IVC thrombosis Multiple fractures of ribs, bilateral, initial encounter for closed fracture Left lower lobe pneumonia Myoclonic jerking Anoxic brain injury COVID-19 Fall Anxiety H/O esophageal reflux Hyperactivity of bladder Lice infested hair Menopause Sciatica of left side Seborrheic dermatitis Tracheoesophageal fistula, esophageal atresia and stenosis, congenital Depression Surgical History History of esophagogastroduodenoscopy (EGD) Family History Mother Myocardial infarction Father Myocardial infarction Sister Myocardial infarction Brother No problems noted. Son Prostate cancer Other Cancer Coronary heart disease Denies family history of Ovarian cancer Breast cancer Colorectal cancer Social History Smoking Status: Unknown if ever smoked Tobacco Type: Cigarettes Age Started Using Tobacco: 22; Age Quit Using Tobacco: 42; packs per day: 1; Cigarettes Per Day: 20; Second Hand Exposure: No; Do You Dip or Chew Tobacco: No; Hx Alcohol Use: No Hx Substance Use: No Preferred Language: [place] Communication Ability: Effective Visual Impairment: No Limitations Hearing Ability: Normal Surgical Coordinator Required: No Beliefs That Will Affect Care: None marital status: / Current Living Situation: Personal Care Facility Current Living Situation Comment: lives in independent living at [facility] current occupational status: retired current occupation: retired from career as insurance administrative assistant with [employer] Feels Safe at Home: Yes Childhood Exposure to Second-Hand Smoke: Yes Diet: regular caffeine: Yes Dental Care, Regularly: Yes Physical Activity Frequency: 3-4 Times per Week Physical Activity Frequency Comment: walking short distances Seatbelt Use: always Sunscreen Use: No Assistive Devices: Glasses, Walker and Wheelchair Review of Systems Review of Systems: Unobtainable due to endotracheal tube and Unobtainable due to reduced consciousness Physical Exam Physical Exam: Constitutional: Patient appears to be of their stated age. Elderly and frail. Eyes: Pupils are equal round and reactive to light. Conjunctivae are normal. Anicteric sclera. Ears nose, mouth and throat: Endotracheal tube in place with blood noted in the oropharynx. Neck: Trachea is midline. Visual inspection is normal. Respiratory: Rhonchi in the left lower lobe region. Mildly tachypneic. Clear elsewhere. Cardiovascular: Regular rate and rhythm. No murmurs. No edema. Gastrointestinal: Normal bowel sounds, soft, nontender and nondistended. No hepatosplenomegaly noted. Musculoskeletal: No cyanosis. Patient is able to move all extremities. Strength is 5 out of 5 in the upper and lower extremities. Skin: No rashes, warm dry and intact. Neurologic: Severe myoclonic jerking activity diffusely. Pupils pinpoint and minimally reactive to light. Psychiatric: Unable to assess Results & Data Results & Data Vital Signs (Past 12 Hours) Vital Signs Temp Pulse Resp BP Pulse Ox O2 Del Method FiO2 09/23/23 12:25 116 H 13 104/57 L 98 Mechanical Vent 09/23/23 12:20 125 H 13 113/59 L 96 09/23/23 12:15 124 H 14 97 Mechanical Vent 09/23/23 12:10 128 H 15 119/64 97 Mechanical Vent 09/23/23 12:05 124 H 18 116/63 96 09/23/23 12:00 124 H 17 98 09/23/23 11:55 122 H 18 100 09/23/23 11:54 50 09/23/23 11:51 123 H 15 99 09/23/23 11:44 99 09/23/23 11:25 118 H 17 100 09/23/23 11:21 122 H 15 108/59 L 100 09/23/23 11:19 122 H 9 L 100 09/23/23 11:16 124/48 L 09/23/23 11:16 122 H 15 99 09/23/23 11:15 122 H 14 98 Mechanical Vent 09/23/23 11:11 117 H 10 L 103/63 97 09/23/23 11:10 118 H 19 100 09/23/23 11:09 117 H 15 89/56 L 100 Mechanical Vent 09/23/23 11:05 114 H 9 L 95/53 L 100 09/23/23 11:04 113 H 13 94/54 L 99 09/23/23 11:02 111 H 14 76/46 L 99 09/23/23 11:00 112 H 12 99 09/23/23 10:57 115 H 15 73/53 L 99 09/23/23 10:55 72/50 L 09/23/23 10:50 111 H 11 L 90/60 L 100 09/23/23 10:50 24 70 09/23/23 10:45 109 H 12 100 09/23/23 10:44 109 H 16 77/49 L 100 09/23/23 10:40 108 H 13 99 09/23/23 10:36 108 H 19 82/49 L 100 09/23/23 10:33 108 H 12 100 09/23/23 10:30 107 H 15 74/52 L 100 09/23/23 10:28 107 H 13 100 09/23/23 10:11 117 H 11 L 81/55 L 100 09/23/23 10:10 117 H 11 L 85/60 L 100 09/23/23 10:05 134 H 15 140/87 100 09/23/23 10:05 133 H 09/23/23 10:05 101 H 25 H 100 100 09/23/23 10:00 129 H 22 100 Mechanical Vent 09/23/23 09:55 63 30 H 09/23/23 09:52 35.0 C L Coding Level of Care Code 15644 CRITICAL CARE 1ST 30-74M Diagnoses Cardiac arrest with successful resuscitation I46.9 Pulmonary emboli I26.99 IVC thrombosis I82.220 Anoxic brain injury G93.1 Myoclonic jerking G25.3 Ventilator dependence Z99.11 Sepsis A41.9 UTI (urinary tract infection) N39.0 Left lower lobe pneumonia J18.9 Multiple fractures of ribs, bilateral, initial encounter for closed fracture S22.43XA Counseling regarding end of life decision making Z71.89
[2023-09-23] MEDS: STAT IV Infusion **Titration per Protocol STA ×2 (13:47)
[2023-09-23] MEDS: SODIUM CHLORIDE 0.9% 1,000 ML IV SCH (14:21)
[2023-09-23] MEDS: GLYCOPYRROLATE 0.2 MG/ML VIAL IV PRN (15:53)
[2023-09-23] MEDS: ICU Protocol for HYPERglycemia SCH (16:27)
[2023-09-23] MEDS ORDERED: LORazepam 1 MG in SYRINGE 0.5 ML IV PRN (16:30)
[2023-09-23] MEDS ORDERED: LORazepam 0.5 MG in SYRINGE 0.5 ML IV PRN (16:30)
[2023-09-23] MEDS ORDERED: PIPERACILLIN/TAZOBACTAM 4.5 GM in DEXTROSE 5% MINI-B 100 ML IV SCH (18:00)
--- NOTE | 2023-09-23 18:13 | Death Pronouncement Note ---
Date of Service September 23, 2023 Pronouncement Note Admission Date September 23, 2023 Date and Time of Date of : 09/23/23 Time of : 18:21 Preliminary Cause of (1) Pulmonary emboli: Additional Data Confirmation of : no pulse, no respirations, no heart sounds and pupils fixed and dilated Pronouncement Performed By: Attending Physician Attending physician: Naun Fiore MD Was code activated?: No Coding Level of Care Code None Diagnoses Pulmonary emboli I26.99
[2023-09-23] MEDS ORDERED: CALCIUM CHLORIDE 10% 10 ML SYR IV ONE (18:20)
[2023-09-23] MEDS ORDERED: MIDAZOLAM HCL 5 MG/ML 2ML VIAL IV ONE (18:20)
[2023-09-23] MEDS ORDERED: SODIUM BICARB 8.4% INJ 50 MEQ/50 ML SYR IV ONE (18:20)
[2023-09-23] MEDS ORDERED: SODIUM CHLORIDE 0.9% 10ML FLUSH IV ONE (18:20)
--- NOTE | 2023-09-24 12:00 | Discharge Summary ---
Date of Service September 24, 2023 Admission HPI Per Admitting Provider Nai is an 83-year-old woman with a past medical history of Parkinson's disease, anxiety/depression, esophageal reflux, Klebsiella UTI, previous CVA with resultant left hand weakness, and bladder hyperactivity who presented to the [facility] ED via ALS on 09/23/23 as a Code Blue. The patient was intubated by EMS prior to arrival. Per EMS staff the patient was reportedly in her normal state of health this am. Shortly after breakfast she was walking [place] her assisted living facility and had a sudden onset of SOB and fell to the ground. She went unresponsive. CPR was initiated at her facility and there were no s hocks advised. EMS was able to obtain ROSC after administering Epinephrine. On arrival to the ED she was noted to be tachycardic with a HR of 101, respirations of 25, initial BP of 95/56, temperature of 35C, and SpO2 of 100% on the ventilator. Labs were significant for a leukocytosis of 18, lactate of 10.7, INR of 1.2, ionized calcium of 1.57, AG of 14 with bicarb of 19, ALT of 72, AST of 416, potassium of 3.9, mag of 2.3, ABG with a pH of 7.09, pCO2 of 56, pO2 of 420, initial high sen trop of 407, BNP and CK WNL, lipase of 95, TSH of 10 with free T4 of 0.83, UA with consistent with UTI, negative alcohol level, and urine toxicology screen in process. CT of the head/brain wo con was read as negative for acute findings. After discussions between the ED staff and family the patient was made a DNR/DNI prior to admission but the family was not ready for terminal extubation as more family were on their way to the Hospital but were approximately 3 hours away. Prior to admission the patient was given 1L NSS and was started on epinephrine and fentanyl drips. Patient is intubated and sedated at the time of the exam. She is currently having intermittent jerking of the BL upper extremities and appears to be fighting the ET tube, will adjust sedation. I spoke with family who confirm that the patient is a DNR/DNI, they are still waiting for the last sibling to arrive to make other decisions moving forward. Please refer to Dr. Fiore's attention for any changes to the treatment plan Admission Exam Per Admitting Provider Constitutional: Patient appears to be of their stated age. Elderly and frail. Eyes: Pupils are equal round and reactive to light. Conjunctivae are normal. Anicteric sclera. Ears nose, mouth and throat: Endotracheal tube in place with blood noted in the oropharynx. Neck: Trachea is midline. Visual inspection is normal. Respiratory: Rhonchi in the left lower lobe region. Mildly tachypneic. Clear elsewhere. Cardiovascular: Regular rate and rhythm. No murmurs. No edema. Gastrointestinal: Normal bowel sounds, soft, nontender and nondistended. No hepatosplenomegaly noted. Musculoskeletal: No cyanosis. Patient is able to move all extremities. Strength is 5 out of 5 in the upper and lower extremities. Skin: No rashes, warm dry and intact. Neurologic: Severe myoclonic jerking activity diffusely. Pupils pinpoint and minimally reactive to light. Psychiatric: Unable to assess Principal Diagnosis Discharge Exam Confirmation of : no pulse, no respirations, no heart sounds and pupils fixed and dilated Discharge Data Allergies Allergy/AdvReac Type Severity Reaction Status Date / Time sertraline Allergy Intermediate itchy Verified 08/22/23 14:09 atorvastatin Allergy Unknown Unknown Verified 08/22/23 14:09 simvastatin Allergy Unknown Unknown Verified 08/22/23 14:09 Sulfa (Sulfonamide Allergy Unknown RASH Verified 08/22/23 14:09 Antibiotics) Consultations 09/23/23 10:21 ED Decision to Admit Stat 09/23/23 13:45 Consult Straddle Carrier Operator Routine Ordered Studies 09/23/23 10:[address] [CT head/brain wo con] Stat 09/23/23 12:01 CT abd pelvis IV con only Stat CT angio chest PE protocol Stat Hospital Course (1) Pulmonary emboli: 83-year-old female with a past medical history of Parkinson's disease and prior CVA with development of left hemiparesis followed by neurology in the outpatient clinic who presented to to the ER today after being found down by staff at her nursing facility initiated CPR. Patient was intubated by EMS. Patient had ongoing chest compressions. She received several doses of epinephrine. No shocks were given. She also received approximately 5 minutes of CPR in the ER with ROSC obtained. Patient was noted to have bleeding from her oral cavity. Blood gases were indicative of severe combined respiratory and metabolic acidosis with a pH of 7.09. Patient's workup was significant for UTI, leukocytosis, lactate of 10.7, elevated troponin. Patient was continued on the ventilator with fentanyl, versed, and epinephrine drips. She was give a total of 2.5L NSS and a dose of zosyn on admission. CTA of the chest and CT of the abd/pelvis w/IV con was read as "1. Significantly streak and motion degraded examinations. 2. There is pulmonary embolus within the distal right lower lobe pulmonary artery which extends into segmental and subsegmental branches. 3. An endotracheal tube is in place. The tip is located just above the ravin and this should likely be pulled back. 4. An enteric tube is in place. The tip is located above the diaphragm within a small hiatal hernia. This should be advanced. 5. Patchy airspace consolidation is seen throughout the left lower lobe. There is also minimal patchy airspace consolidation in the right lower lobe. The appearance favors pneumonia/aspiration pneumonitis. Correlate clinically. 6. Trace left pleural effusion. 7. There are acute bilateral anterior rib fractures. The lumbar fractures is difficult to assess due to the degree of motion artifact. 8. There is presternal soft tissue edema and a sternal fracture is suspected. This is difficult to assess due to severe motion artifact. 9. There is no evidence of solid organ injury in the abdomen or pelvis. 10. There is deep venous thrombosis in the distal IVC, the common iliac vein, the left internal and external iliac veins, and within a superficial vein in the left upper thigh. 11. The small bowel loops are mildly dilated and fluid-filled. There is no high-grade obstruction and this may represent ileus. Correlate clinically. 12. The right piriformis muscle appears expanded with surrounding infiltration, which represents a significant change from 05/30/2023. This may represent intramuscular hemorrhage. Active extravasation is suspected. 13. The gallbladder appears distended and there is mild pericholecystic infiltration. Correlate with clinical and laboratory findings. If there is concern for acute cholecystitis a right upper quadrant ultrasound should be obtained. 14. Additional findings as above.". The patient on ongoing massive myoclonic jerking activity consistent with anoxic brain injury. Further discussions were held with the ICU team and family bedside. Family elected to start comfort measures and the patient was terminally extubated. She was pronounced at 1821. Plan The patient was discussed with Dr. Fiore at the time of this discharge summary Total Time Total Time Spent Total Time Spent (In Minutes): 20 Discharge Plan Discharge Items Patient Disposition: Discharge Diagnosis: Pulmonary embolism Other Date/Time: 09/23/23 18:21 Supervising Physician Co-Signing Physician Notes I personally saw and examined the patient. I verified all manzano points and agree with Sonny Ortiz PA-C with the following exceptions and/or additions: None Coding Level of Care Code Established Pt None Patient Type Established Medical Decision Making High Complexity Diagnoses Pulmonary emboli I26.99
--- NOTE | 2023-09-24 22:26 | Electrocardiogram Report ---
Test Reason : Blood Pressure : / mmHG Vent. Rate : 137 BPM Atrial Rate : 138 BPM P-R Int : 116 ms QRS Dur : 138 ms QT Int : 324 ms P-R-T Axes : 046 033 005 degrees QTc Int : 489 ms Sinus tachycardia with Premature atrial complexes Right bundle branch block T wave abnormality, consider anterolateral ischemia Abnormal ECG When compared with ECG of 29-MAY-2023 19:50, HR has increased Right bundle branch block is now Present Confirmed by Juan Antonio Logan ([id number]) on 09/24/2023 10:25:50 PM Referred By: REFERRED SELF Confirmed By:Juan Antonio Logan
[2023-09-28 09:17] LABS: Amobarbital, Urine Conf NEGATIVE ng/mL (<100); Butalbital, Urine NEGATIVE ng/mL (<100); Pentobarbital, Urine Conf NEGATIVE ng/mL (<100); Phenobarbital, Urine 2240 ng/mL (<100); Secobarbital, Urine Conf NEGATIVE ng/mL (<100)
== END 2023-09-23 18:21 | disposition expired | DRG 296 ==
LOC: ED 09:49 → 1E 12:04